=== PATIENT | male | born 1980 | race Caucasian/White ===

== ENCOUNTER 2023-07-14 08:58 | Outpatient (AMB) | payer OTHER, MEDICAID, SELFPAY ==
--- NOTE | 2023-07-14 09:06 | MHC.PC.OV ---
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: No Accompanied by: Self / Same As Patient Allergies grass pollen Allergy (Mild, Verified 07/14/23 09:34) Itchy Eyes Medication List - Last Reconciled 07/14/23 by Bienvenido Marquez CNP amlodipine 5 mg PO DAILY atorvastatin 10 mg PO DAILY azathioprine 150 mg PO DAILY losartan-hydrochlorothiazide 50-12.5 mg 1 tab PO DAILY metformin ER 500 mg PO DAILY omeprazole 20 mg PO DAILY Tobacco use date assessed: 07/14/23 Dental Screening Dental Screen Date: 07/14/23 Did you have a dental visit in the last 12 months?: No Did you have a dental problem in the last 6 months where you did not have access to dental care?: No Was dental information given to patient?: Patient has dentist HPI HPI Comments History of Present Illness Details New patient Prior PCP:?[facility] Last office visit/CPE: August 2022 Last routine blood work: October 2022 Acute issue(s): Hypertension -He is on amlodipine 10 mg daily and losartan-HCTZ 50-12.5 mg daily Diabetes - He is on Metformin 500 mg daily HLD - He is on atorvastatin 10 mg daily 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 Dad: HTN, skin cancer. MGM: DM SocHx: Former smoker. 1-2 drinks per year. No drugs. He is followed by gastroentrology at [facility] and pulmonology at [facility] He has GI follow up next month He notes that his last diabetic eye exam was at [facility] at the [employer] in October 2021: normal. He notes that he will call and schedule his next eye exam He denies routine exercise or healthy dietary choice. He declines referral to general foreman/dietitian and weight management and notes that he has a busy work schedule He denies acute symptoms at this time [facility] Medical History (Updated 07/14/23 @ 10:44 by Bienvenido Marquez CNP) Hope esophagus Hx of Crohn's disease High cholesterol High blood pressure Sinusitis Asthma Surgical History (Updated 07/14/23 @ 10:04 by Kimberley Hernández MA) Hx of appendectomy H/O hernia repair Hx of tonsillectomy Family History (Updated 07/14/23 @ 10:21 by Kimberley Hernández MA) Mother High blood pressure High cholesterol Diabetes Skin cancer Father High blood pressure Skin cancer Maternal Grandmother Diabetes Social History Housing: Other (Trailer) Patient Tobacco Use Status: Former Tobacco user e-Cigarette/Vaping Use: Never Used service: No Current occupational status: employed Current occupation: [employer] R[employer] Cognitive needs: No Hearing needs: No Vision needs: Yes Questionnaire PHQ-9 Over the last 2 weeks, how often have you been bothered by any of the following problems? 1. Little interest or pleasure in doing things: not at all 2. Feeling down, depressed, or hopeless: not at all 3. Trouble falling or staying asleep, or sleeping too much: not at all 4. Feeling tired or having little energy: several days 5. Poor appetite or overeating: several days 6. Feeling bad about yourself - or that you are a failure or have let yourself or your family down: not at all 7. Trouble concentrating on things, such as reading the newspaper or watching television: not at all 8. Moving or speaking so slowly that other people could have noticed. Or the opposite - being so fidgety or restless that you have been moving around a lot more than usual: not at all 9. Thoughts that you would be better off or of hurting yourself in some way: not at all Total score: 2 Depression Screening Interpretation: Negative Depression Screening Done: Yes [id number] - PHQ-9 Billing: Yes Source: Developed by Drs. Jordi Dominguez, Amy Alatorre, Torres Godinez and colleagues, with an educational tuan from [employer]. Thrive Questionnaire Date Thrive assessed: 07/14/23 I am a: Patient What is your living situation today?: I have a steady place to live Within the past 12 months, did the food you bought not last and you didn't have the money to get more?: Never true Within the past 12 months, did you worry whether your food would run out before you got money to buy more?: Never true Do you have trouble paying for medicines?: No Do you have trouble getting transportation to medical appointments?: No Do you have trouble paying your heating and electricity bill?: No Do you have trouble taking care of your child, family member or friend?: No Do you have trouble with day-to-day activities such as bathing, preparing meals, shopping, managing finances, etc.?: No Are you currently unemployed and looking for a job?: No Are you interested in more education?: Yes Please select the resources that you would like help with: Job search/training Currently or been in a relationship where the following occur: no concerns reported AUDIT C Alcohol Use Questionnaire (AUDIT-C) 1. How often do you have a drink containing alcohol?: Monthly or less 2. How many drinks containing alcohol do you have on a typical day when you are drinking?: 1 or 2 3. How often do you have six or more drinks on one occasion?: Never Total Score: 1 RODO-7 AMB Questionnaire RODO-7 Date RODO - 7 assessed: 07/14/23 Feeling nervous, anxious, or on edge: 0 = Not at all Not being able to stop or control worryin = Not at all Worrying too much about different things: 0 = Not at all Trouble relaxin = Several days Being so restless that it is hard to sit still: 0 = Not at all Becoming easily annoyed or irritable: 1 = Several days Feeling afraid as if something awful might happen: 0 = Not at all Total RODO-7 score (0-4 normal; 5-9 mild; 10-14 moderate; 15-21 severe): 2 Source: Developed by Drs. Jordi Dominguez, Amy Alatorre, Torres Godinez and colleagues, with an educational tuan from [employer]. RODO-7 Assessment Billing RODO-7 Assessment Tool: RODO-7 Assessment 93758 ACT Questionnaire In the past 4 weeks, how much of the time did your asthma keep you from getting as much done at work, school or at home?: None of the time During the past 4 weeks, how often have you had shortness of breath?: Not at all During the past 4 weeks, how often did your asthma symptoms wake you up at night or earlier than usual in the morning?: Not at all During the past 4 weeks, how often have you had to use your rescue inhaler or nebulizer medication?: Not at all How would you rate your asthma control during the past 4 weeks?: Completely controlled ACT Interpretation: Negative Score: 25 Review of Systems Const Details: Const Denies chills, Denies fatigue, Denies fever(s), Denies headache(s) and Denies weakness ENT Denies dizziness and Denies headache(s) Card Denies chest pain, Denies lightheadedness, Denies dyspnea and Denies other (Palpitations) Resp Denies cough, Denies dyspnea, Denies wheezing and Denies other ( shortness of breath) GI Denies abdominal pain, Denies melena, Denies hematochezia, Denies change in bowel habits, Denies dyspepsia and Denies nausea Denies hematuria and Denies dysuria Musc Denies abnormal gait, Denies myalgias, Denies arthralgias, Denies numbness and Denies tingling Skin/Breast Denies rash, Denies unusual bruising and Denies wounds Neuro Denies abnormal gait, Denies dizziness, Denies headache(s), Denies memory loss, Denies numbness, Denies Sensory deficit (Neuro), Denies tingling and Denies weakness Psych Denies anxiety, Denies depression, Denies memory loss Endo Denies cold intolerance, Denies fatigue, Denies heat intolerance, Denies polydipsia and Denies polyuria Aller/Immun Denies wheezing Physical exam (Primary Care) Vital Signs: Last Vital Signs Temp 97.7 F 07/14/23 09:07 Pulse 70 07/14/23 09:07 Resp 13 07/14/23 09:07 BP 138/88 07/14/23 09:07 Pulse Ox 98 07/14/23 09:07 Oxygen Delivery Method Room Air 07/14/23 09:07 BMI result Body Mass Index 51.2 Tobacco/Smoking Status: Tobacco use Status Tobacco use date assessed 07/14/23 07/14/23 09:34 Patient Tobacco Use Status Former Tobacco user 07/14/23 09:34 e-Cigarette/Vaping Use Never Used 07/14/23 09:34 Depression Screening Interpretation: Negative Currently or been in a relationship where the following occur: no concerns reported Const Other: General: no acute distress and well developed Nutritional Appearance: well nourished Orientation/consciousness: patient oriented x3 HENMT Head: Yes normocephalic and Yes atraumatic Eyes General: appearance normal, both eyes and all related structures Pupils: Equal, round and reactive pupils present EOM: EOMs intact bilaterally Resp Effort & Inspection: normal respiratory effort Auscultation: clear to auscultation bilaterally Cardio Rate: regular rate Rhythm: regular rhythm Heart sounds: S1 normal heart sound present, S2 normal heart sound present, no gallops, no murmurs and no rubs GI Palpation (GI): No Abdominal aortic bruit present, Soft to palpation, nontender, No hepatosplenomegaly present and No Rebound tenderness present Auscultation: normal bowel sounds General: Yes no CVA tenderness Back/Spine/Pelvis Back: no CVA tenderness Cervical Spine: cervical ROM normal and No Cervical spine tenderness Thoracic/Lumbar Spine: thoraco-lumbar ROM normal, No pain with thoraco-lumbar ROM, No thoracic spinal tenderness and No lumbar spinal tenderness Extrem General: Yes normal to inspection, No edema and No calf tenderness Skin General: warm and dry. Normal skin color. Normal skin turgor Lesions: no lesions Rashes: no rashes Trauma: no lacerations or abrasions Wounds: no wounds Nails: normal Neuro General: patient oriented x3, gait normal and no focal neuro deficit Cranial nerves: Yes Equal, round and reactive pupils present Cognition (Neuro): normal cognition Gait exam (Neuro): Normal gait present Sensory Exam: No Sensory deficit (Neuro) Psych Appearance: grossly normal Affect: normal affect Attitude: cooperative Thought process: Normal thought process present Results AMB Hemoglobin A1c AMB Hemoglobin A1c 6.2 % Last Edit by Kimberley Hernández MA on 07/14/23 10:22 Assessment and Plan Assessment & Plan (1) Diabetes: Code(s): E11.9 - Type 2 diabetes mellitus without complications Plan: A1c today is 6.2%, within goal of less than 7.0% Continue to take metformin as prescribed ADA diet and routine exercise encouraged Encouraged to schedule appointment with Ophthalmology for diabetic retinal exam Will check urine microalbumin/creatinine ratio Will recheck A1c in 3 months Advised to follow-up in 1-2 months for an extended exam and labs review Return sooner with symptoms or concerns Verbalized understanding and agreed with treatment plan (2) High blood pressure: Code(s): I10 - Essential (primary) hypertension Qualifiers: Hypertension type: primary hypertension Qualified Code(s): I10 - Essential (primary) hypertension Plan: Blood pressure is 138/88, above goal of less than 130/80 Continue current treatment regimen Low-sodium diet encouraged Will continue to monitor He will follow-up in 1-2 months Verbalized understanding and agreed with treatment plan (3) High cholesterol: Code(s): E78.00 - Pure hypercholesterolemia, unspecified Plan: Atorvastatin as prescribed Advised to limit foods high in saturated fat and avoid foods high trans fat Routine exercise encouraged Will check lipid panel level and make changes to his care plan as needed Verbalized understanding and agreed with the treatment plan (4) Morbid obesity with BMI of 50.0-59.9, adult: Code(s): E66.01 - Morbid (severe) obesity due to excess calories; Z68.43 - Body mass index [BMI] 50.0-59.9, adult Plan: He weighs 377 lb, BMI is 51.2 He does not exercise or make healthy dietary choices Declines referral to general foreman/dietitian or weight management Routine exercise and healthy diet encouraged Advised to inform his PCP if he changes his mind on referral to general foreman/dietitian or weight management Return with symptoms or concerns Verbalized understanding and agreed with treatment plan (5) 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 Plan: No acute symptoms He is on omeprazole and is followed by [facility] Gastroenterology Continue current treatment regimen Continue to follow up with Gastroenterology as planned Return with symptoms or concerns Verbalized understanding and agreed with treatment plan (6) Hx of Crohn's disease: Code(s): Z87.19 - Personal history of other diseases of the digestive system Plan: No acute symptoms On azathioprine and followed by [facility] gastroenterology Continue current treatment regimen Continue follow-up with Gastroenterology as planned Return with symptoms or concerns Verbalized understanding and agreed with treatment plan (7) Sleep apnea: Code(s): G47.30 - Sleep apnea, unspecified Plan: No acute symptoms On CPAP and followed by [facility] pulmonology Continue current treatment regimen Follow-up with pulmonology as planned Return with symptoms or concerns Verbalized understanding and agreed with treatment plan (8) Laboratory tests ordered as part of a complete physical exam (CPE): Code(s): Z00.00 - Encounter for general adult medical examination without abnormal findings Plan: Fasting labs ordered as part of a complete physical exam. Advised to fast for at least 10 hours before getting labs drawn. May drink water Verbalized understanding and agreed with treatment plan. Orders: Orders Complete Blood Count Auto Diff Today E11.9 - Type 2 diabetes mellitus without complications, E78.00 - Pure hypercholesterolemia, unspecified, I10 - Essential (primary) hypertension, Z00.00 - Encounter for general adult medical examination without abnormal findings Comprehensive [place]. Panel Fast Today E11.9 - Type 2 diabetes mellitus without complications, E78.00 - Pure hypercholesterolemia, unspecified, I10 - Essential (primary) hypertension, Z00.00 - Encounter for general adult medical examination without abnormal findings Microalbumin, Random (w Creat) Today E11.9 - Type 2 diabetes mellitus without complications Lipid Panel Today E78.00 - Pure hypercholesterolemia, unspecified, Z00.00 - Encounter for general adult medical examination without abnormal findings TSH reflex Free T4 Today Z00.00 - Encounter for general adult medical examination without abnormal findings AMB Hemoglobin A1c Today Z13.9 - Encounter for screening, unspecified Coding Level of Care Code New Pt Level 4 (95177) Diagnoses Diabetes E11.9 Primary hypertension I10 Hypertension type: primary hypertension High cholesterol E78.00 Morbid obesity with BMI of 50.0-59.9, adult E66.01; Z68.43 Hope esophagus K22.70 Hx of Crohn's disease Z87.19 Sleep apnea G47.30 Laboratory tests ordered as part of a complete physical exam (CPE) Z00.00 Additional Codes RODO-7 Assessment Billing - RODO-7 Assessment Tool: RODO-7 Assessment [id number] ([id number])
[2023-07-14 09:07] VITALS: BP 138/88; PULSE 70; RESP 13; TEMP 36.5; O2SAT 98; BMI 51.2
== END 2023-07-14 10:01 | disposition home or self-care (01) ==
PROVIDERS: PCP Nurse Practitioner Family; Visit Provider Nurse Practitioner Family
DX: E11.9 Type 2 diabetes mellitus without complications (principal); E66.01 Morbid (severe) obesity due to excess calories; Z68.43 Body mass index [BMI] 50.0-59.9, adult; I10 Essential (primary) hypertension; E78.00 Pure hypercholesterolemia, unspecified; K22.70 Barrett's esophagus without dysplasia; Z87.19 Personal history of other diseases of the digestive system; G47.30 Sleep apnea, unspecified
CPT/HCPCS: 83036; 99204

== ENCOUNTER 2023-08-10 10:35 | Outpatient (REF) | payer OTHER, MEDICAID, SELFPAY ==
[2023-08-10 14:58] LABS: MANUAL DIFF FLAG NO
[2023-08-10 15:03] LABS: Basophils Absolute Auto 0.1 X10*3/uL (0.0-0.2); Basophils Percent Auto 1.1 % (0-2); Eosinophils Absolute Auto 0.2 X10*3/uL (0.0-0.4); Eosinophils Percent Auto 3.7 % (0-4); Hematocrit 39.5 % (42.0-52.0); Hemoglobin 12.9 g/dl (14.0-18.0); Imm Gran Abs Auto 0.03 X10*3/uL (0.00-0.03); Imm Gran Pct Auto 0.5 % (0.0-0.4); Lymphocytes Absolute Auto 1.5 X10*3/uL (1.2-4.9); Lymphocytes Percent Auto 23.9 % (20-40); Mean Corpuscular HGB Conc 32.7 g/dl (31.0-36.0); Mean Corpuscular Hemoglobin 28.4 pg (27.0-33.0); Mean Platelet Volume 9.3 fL (9.4-12.4); Monocytes Absolute Auto 0.5 X10*3/uL (0.1-1.2); Monocytes Percent Auto 8.3 % (2-11); Neutrophils Percent Auto 62.5 % (45-73); Platelet Count 286 X10*3/uL (160-400); Red Blood Count 4.54 X10*6/uL (4.60-5.80); Red Cell Distribution Width 13.8 % (11.0-16.0); White Blood Count 6.4 X10*3/uL (4.8-10.8)
[2023-08-10 15:47] LABS: Alanine Aminotransferase 27 U/L (0-40); Alkaline Phosphatase 83 U/L (39-117); Anion Gap 14 (12-20); Aspartate Amino Transferase 16 U/L (5-37); Bilirubin Total 0.9 mg/dL (0.0-1.0); Blood Urea Nitrogen 10 mg/dL (9-16); Calcium 8.8 mg/dL (8.4-10.2); Carbon Dioxide 25 mmol/L (22-29); Chloride 108 mmol/L (96-108); Cholesterol 156 mg/dL (<200); Estimated Glomerular Filt Rate > 60; Glucose Fasting 91 mg/dL (60-99); HDL Cholesterol 36 mg/dL (>40); LDL Cholesterol Calculated 100 mg/dL (<100); Potassium 3.7 mmol/L (3.3-5.1); Sodium 143 mmol/L (135-145); Triglycerides 104 mg/dL (<150)
[2023-08-10 15:51] LABS: TSH reflex Free T4 2.06 uIU/mL (0.32-4.0)
== END 2023-08-10 10:36 | disposition home or self-care (01) ==
LOC: HO.WFDLDS 10:35
PROVIDERS: Visit Provider Nurse Practitioner Family
DX: Z00.00 Encounter for general adult medical examination without abnormal findings (principal); E11.9 Type 2 diabetes mellitus without complications; E78.00 Pure hypercholesterolemia, unspecified; I10 Essential (primary) hypertension
CPT/HCPCS: 36415; 80053; 80061; 84443; 85025

== ENCOUNTER 2023-08-10 14:29 | Outpatient (REF) | payer OTHER, MEDICAID, SELFPAY ==
[2023-08-10 16:00] LABS: Creatinine Urine 68.56 mg/dL; Microalbum/Creatinine Ratio Ur 8.7 ug/mg cr (<30)
== END 2023-08-10 14:30 | disposition home or self-care (01) ==
LOC: HO.LAB 14:29
PROVIDERS: PCP Nurse Practitioner Family; Visit Provider Nurse Practitioner Family
DX: E11.9 Type 2 diabetes mellitus without complications (principal)
CPT/HCPCS: 82043; 82570

== ENCOUNTER 2023-08-24 13:21 | Outpatient (AMB) | payer OTHER, MEDICAID, SELFPAY ==
--- NOTE | 2023-08-24 13:29 | MHC.PC.OV ---
Vital Signs 08/24/23 13:30 08/24/23 13:51 Height 6 ft Weight 385 lb BMI 52.2 BP 154/90 H 150/100 H Blood Pressure Location Rt brachial Rt brachial Position Sitting Sitting Respiration 13 Pulse 97 Pulse Source Pulse Oximeter Temp 97.8 F Temp Source Temporal Artery Scan Pulse Oximetry (%) 99 Oxygen Delivery Method Room Air Intake Visit Reasons: CPE Lab review Intake Note: Patient would like to discuss issues with knee if there is time. I advised that he may may need to book a follow up appt in order to get it looked at. Gas Brazer Required: No Accompanied by: Self / Same As Patient Allergies grass pollen Allergy (Mild, Verified 08/24/23 13:46) Itchy Eyes Medication List - Last Reconciled 08/24/23 by Bienvenido Marquez CNP amlodipine 5 mg PO DAILY atorvastatin 10 mg PO DAILY azathioprine 150 mg PO DAILY losartan-hydrochlorothiazide 50-12.5 mg 1 tab PO DAILY metformin ER 500 mg PO DAILY omeprazole 20 mg PO DAILY Tobacco use date assessed: 08/24/23 Dental Screening Dental Screen Date: 08/24/23 Did you have a dental visit in the last 12 months?: No Did you have a dental problem in the last 6 months where you did not have access to dental care?: No Was dental information given to patient?: Yes HPI HPI Comments History of Present Illness Details 43-year-old male presents for an extended physical exam He has history of hypertension, diabetes, hyperlipidemia, sleep apnea, Crohn's disease, and Trejo esophagus He admits to taking his medications as prescribed without adverse reactions He reports chronic intermittent left knee pain for the past 10 years. He attributes the pain to the physical nature of his job. 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 He states he was followed by ortho 10 years ago, had imaging done, left patella was displaced and was reduced Recent LDL level is slightly low, 36, RBC and H&H level is slight low, 4.54, and 12.9/39.5 respectively He is followed by [facility] gastroenterology and [facility] pulmonology [facility] Medical History Trejo esophagus Hx of Crohn's disease High cholesterol High blood pressure Sinusitis Asthma Surgical History Hx of appendectomy H/O hernia repair Hx of tonsillectomy Family History Mother High blood pressure High cholesterol Diabetes Skin cancer Father High blood pressure Skin cancer Maternal Grandmother Diabetes Social History Housing: Other (Trailer) Patient Tobacco Use Status: Former Tobacco user e-Cigarette/Vaping Use: Never Used service: No Current occupational status: employed 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 Jordi Dominguez, Amy Alatorre, Torres Godinez and colleagues, with an educational tuan from [employer]. Review of Systems Const Details: Denies chills, Denies fatigue, Denies fever(s), Denies headache(s) and Denies weakness HEENT Denies change in vision, Denies dizziness, Denies headache(s), Denies hearing loss, Denies nasal congestion, Denies sinus pain, Denies sinus pressure and Denies sore throat Card Denies chest pain, Denies lightheadedness, Denies dyspnea and Denies other (palpitations) Resp Denies cough, Denies dyspnea and Denies wheezing GI Denies abdominal pain, Denies melena, Denies hematochezia, Denies change in bowel habits, Denies dyspepsia and Denies nausea Denies hematuria and Denies dysuria Musc Denies abnormal gait, Denies myalgias, Denies arthralgias, Denies numbness and Denies tingling Skin/Breast Denies rash, Denies unusual bruising and Denies wounds Neuro Denies abnormal gait, Denies dizziness, Denies headache(s), Denies memory loss, Denies numbness, Denies Sensory deficit (Neuro), Denies tingling and Denies weakness Psych Denies anxiety, Denies depression and Denies memory loss Endo Denies cold intolerance, Denies fatigue, Denies heat intolerance, Denies polydipsia and Denies polyuria Jason/Lymph Denies easy bleeding and Denies easy bruising Aller/Immun Denies wheezing Physical exam (Primary Care) Vital Signs: Last Vital Signs Temp 97.8 F 08/24/23 13:30 Pulse 97 08/24/23 13:30 Resp 13 08/24/23 13:30 BP 154/90 H 08/24/23 13:30 Pulse Ox 99 08/24/23 13:30 Oxygen Delivery Method Room Air 08/24/23 13:30 BMI result Body Mass Index 52.2 Tobacco/Smoking Status: Tobacco use Status Tobacco use date assessed 08/24/23 08/24/23 13:37 Patient Tobacco Use Status Former Tobacco user 08/24/23 13:37 e-Cigarette/Vaping Use Never Used 08/24/23 13:37 Thrive Assessment: Date of Thrive Assessment Date Thrive assessed 07/14/23 08/24/23 13:37 Const Other: General: no acute distress, well developed, alert and awake Nutritional Appearance: well nourished Orientation/consciousness: patient oriented x3 HENMT Head: Yes normocephalic and Yes atraumatic Ears: hearing grossly normal bilaterally and TM's normal bilaterally General nose exam: Normal external nose present and Normal nares present Mouth: Normal oral and palatal mucosa present and moist mucous membranes Teeth and gingiva: dentition normal Throat: Yes oropharynx normal Eyes Pupils: Equal, round and reactive pupils present and Pupil accommodation reflex normal EOM: EOMs intact bilaterally Neck Neck: Yes normal visual inspection, Yes no lymphadenopathy and Yes trachea midline Thyroid: Thyroid normal Carotids: no bruits Lymphatic: no lymphadenopathy noted Chest Chest palpation & inspection: normal inspection of the chest Resp Effort & Inspection: normal respiratory effort Auscultation: clear to auscultation bilaterally Cardio Rate: regular rate Rhythm: regular rhythm Heart sounds: S1 normal heart sound present, S2 normal heart sound present, no gallops, no murmurs and no rubs Bruits: no abdominal aortic bruits and no carotid bruits GI Palpation (GI): No Abdominal aortic bruit present, Soft to palpation, nontender, No hepatosplenomegaly present and No Rebound tenderness present Auscultation: normal bowel sounds General: Yes no CVA tenderness Back/Spine/Pelvis Back: no CVA tenderness Cervical Spine: cervical ROM normal and No Cervical spine tenderness Thoracic/Lumbar Spine: thoraco-lumbar ROM normal, No pain with thoraco-lumbar ROM, No thoracic spinal tenderness and No lumbar spinal tenderness Skin General: warm and dry. Normal skin color. Normal skin turgor Lesions: no lesions Rashes: no rashes Trauma: no lacerations or abrasions Wounds: no wounds Nails: normal Neuro General: patient oriented x3, gait normal and CN's II-XI intact bilaterally Cranial nerves: Yes Equal, round and reactive pupils present Cognition (Neuro): normal cognition Gait exam (Neuro): Normal gait present Motor exam (neuro): 5/5 motor strength present throughout Sensory Exam: No Sensory deficit (Neuro) Deep tendon reflexes (DTR's): Right patellar reflex intensity grade: 2+ and Left patellar reflex intensity grade: 2+ Extrem General: Yes normal to inspection, No edema and No calf tenderness Psych Appearance: grossly normal Affect: normal affect Attitude: cooperative Thought process: Normal thought process present Assessment and Plan Assessment & Plan (1) Normal physical examination, routine: Code(s): Z00.00 - Encounter for general adult medical examination without abnormal findings Plan: No significant physical restrictions or limitations noted Continue current treatment regimen Healthy diet and routine exercise encouraged Follow-up in 1 month for hypertension or return sooner with symptoms or concerns Verbalized understanding and agreed with treatment plan (2) High blood pressure: Code(s): I10 - Essential (primary) hypertension Qualifiers: Hypertension type: primary hypertension Qualified Code(s): I10 - Essential (primary) hypertension Plan: His resting blood pressure is 150/100, above goal of less than 130/80 Will increase amlodipine to 10 mg daily. Take as prescribed Continue to take losartan-HCTZ as prescribed Low-sodium diet and routine exercise encouraged Blood pressure monitor ordered. Advised to monitor BP daily and report BP persistently above 130/80 Follow-up in 1 month Verbalized understanding and agreed with treatment plan (3) High cholesterol: Code(s): E78.00 - Pure hypercholesterolemia, unspecified Plan: Recent LDL is elevated, 100, goal is less than 70. HDL is slightly low, 36 Will increase atorvastatin to 20 mg daily. Take as prescribed Advised to limit foods high in saturated fat and avoid foods high in trans fat Will recheck lipid panel before his diabetes follow-up appointment Verbalized understanding and agreed with treatment plan (4) Mild anemia: Code(s): D64.9 - Anemia, unspecified Plan: Recent LDL level is slightly low, 36, RBC and H&H level is slight low, 4.54, and 12.9/39.5 respectively He notes that GI is aware of his mild anemia and attributes it to cause disease GI is currently monitoring CBC Continue follow-up with GI as planned Return with symptoms or concerns Verbalized understanding and agreed with the plan (5) Chronic pain of left knee: Code(s): M25.562 - Pain in left knee; G89.29 - Other chronic pain Plan: Chronic intermittent left knee pain for the past 10 years related to physical activities No acute symptoms No overt trauma or injury noted Naproxen ordered. Take as prescribed Warm/cold compresses encouraged Weight may also be a contributing factor. 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 and weight loss Healthy diet and routine exercise encouraged Follow-up with worsening or new symptoms Verbalized understanding and agreed with treatment plan Medications: New atorvastatin 20 mg PO BEDTIME 30 days 30 tabs 3RF amlodipine 10 mg PO DAILY 30 days 30 tabs 3RF naproxen 500 mg PO BID PRN 60 tabs 1RF pain miscellaneous medical supply 1 XL BP cuff and monitor 1 ea 0RF Changed From metformin ER 500 mg PO DAILY To metformin ER 500 mg PO DAILY 90 days 90 tabs 0RF From losartan-hydrochlorothiazide 50-12.5 mg 1 tab PO DAILY To losartan-hydrochlorothiazide 50-12.5 mg 1 tab PO DAILY 30 days 30 tabs 3RF Coding Level of Care Code Est Pt Level 3 (78753) Est Pt Prev Care 40-64y(55967) Diagnoses Normal physical examination, routine Z00.00 Primary hypertension I10 Hypertension type: primary hypertension High cholesterol E78.00 Mild anemia D64.9 Chronic pain of left knee M25.562; G89.29
[2023-08-24 13:30] VITALS: BP 154/90; PULSE 97; RESP 13; TEMP 36.6; O2SAT 99; BMI 52.2
[2023-08-24 13:51] VITALS: BP 150/100
== END 2023-08-24 15:37 | disposition home or self-care (01) ==
PROVIDERS: PCP Nurse Practitioner Family; Visit Provider Nurse Practitioner Family
DX: Z00.00 Encounter for general adult medical examination without abnormal findings (principal); I10 Essential (primary) hypertension; E78.00 Pure hypercholesterolemia, unspecified; D64.9 Anemia, unspecified; M25.562 Pain in left knee; G89.29 Other chronic pain
CPT/HCPCS: 99213; 99396

== ENCOUNTER 2023-09-21 16:27 | Outpatient (AMB) | payer OTHER, MEDICAID, SELFPAY ==
--- NOTE | 2023-09-21 16:42 | A.OFFPC_ITS ---
Vital Signs 09/21/23 16:43 09/21/23 17:26 Height 6 ft Weight 383 lb BMI 51.9 BP 144/100 H 140/100 H Blood Pressure Location Rt brachial Lt brachial Position Sitting Sitting Respiration 14 Pulse 91 Pulse Source Pulse Oximeter Temp 97.7 F Temp Source Temporal Artery Scan Pulse Oximetry (%) 96 Oxygen Delivery Method Room Air Intake Visit Reasons: follow up htn Inflated Pad Buffer Required: No Accompanied by: Self / Same As Patient Allergies grass pollen Allergy (Mild, Verified 09/21/23 17:23) Itchy Eyes Medication List - Last Reconciled 09/21/23 by Bienvenido Marquez CNP amlodipine 10 mg PO DAILY 30 days atorvastatin 20 mg PO BEDTIME 30 days azathioprine 150 mg PO DAILY losartan-hydrochlorothiazide 50-12.5 mg 1 tab PO DAILY 30 days metformin ER 500 mg PO DAILY 90 days miscellaneous medical supply 1 XL BP cuff and monitor naproxen 500 mg PO BID PRN omeprazole 20 mg PO DAILY Tobacco use date assessed: 08/24/23 Dental Screening Dental Screen Date: 09/21/23 Did you have a dental visit in the last 12 months?: Yes Did you have a dental problem in the last 6 months where you did not have access to dental care?: No Was dental information given to patient?: Patient has dentist HPI HPI Comments History of Present Illness Details 43 y/o male presents for HTN follow up He admits to taking his medications as prescribed without adverse reactions He offers no complaints and denies acute symptoms at this time He notes he has been maintaining healthy diet He has not been exercising and does not have the time to do so [facility] Medical History Trejo esophagus Hx of Crohn's disease High cholesterol High blood pressure Sinusitis Asthma Surgical History Hx of appendectomy H/O hernia repair Hx of tonsillectomy Family History Mother High blood pressure High cholesterol Diabetes Skin cancer Father High blood pressure Skin cancer Maternal Grandmother Diabetes Social History Housing: Other (Trailer) Patient Tobacco Use Status: Former Tobacco user e-Cigarette/Vaping Use: Never Used service: No Current occupational status: employed 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 Jordi Dominguez, Amy Alatorre, Torres Godinez and colleagues, with an educational tuan from [employer]. Review of Systems Const Details: Const Denies chills, Denies fatigue, Denies fever(s), Denies headache(s) and Denies weakness ENT Denies dizziness and Denies headache(s) Card Denies chest pain, Denies lightheadedness, Denies dyspnea and Denies other (Palpitations) Resp Denies cough, Denies dyspnea, Denies wheezing and Denies other ( shortness of breath) GI Denies abdominal pain, Denies melena, Denies hematochezia, Denies change in bowel habits, Denies dyspepsia and Denies nausea Denies hematuria and Denies dysuria Musc Denies abnormal gait, Denies myalgias, Denies arthralgias, Denies numbness and Denies tingling Skin/Breast Denies rash, Denies unusual bruising and Denies wounds Neuro Denies abnormal gait, Denies dizziness, Denies headache(s), Denies memory loss, Denies numbness, Denies Sensory deficit (Neuro), Denies tingling and Denies weakness Psych Denies anxiety, Denies depression, Denies memory loss Endo Denies cold intolerance, Denies fatigue, Denies heat intolerance, Denies polydipsia and Denies polyuria Aller/Immun Denies wheezing Physical exam (Primary Care) Vital Signs: Last Vital Signs Temp 97.7 F 09/21/23 16:43 Pulse 91 09/21/23 16:43 Resp 14 09/21/23 16:43 BP 144/100 H 09/21/23 16:43 Pulse Ox 96 09/21/23 16:43 Oxygen Delivery Method Room Air 09/21/23 16:43 BMI result Body Mass Index 51.9 Tobacco/Smoking Status: Tobacco use Status Tobacco use date assessed 08/24/23 09/21/23 16:50 Patient Tobacco Use Status Former Tobacco user 09/21/23 16:50 e-Cigarette/Vaping Use Never Used 09/21/23 16:50 Thrive Assessment: Date of Thrive Assessment Date Thrive assessed 07/14/23 09/21/23 16:50 Const Other: General: no acute distress and well developed Nutritional Appearance: well nourished Orientation/consciousness: patient oriented x3 [facility] Head: Yes normocephalic and Yes atraumatic Eyes General: appearance normal, both eyes and all related structures Pupils: Equal, round and reactive pupils present EOM: EOMs intact bilaterally Resp Effort & Inspection: normal respiratory effort Auscultation: clear to auscultation bilaterally Cardio Rate: regular rate Rhythm: regular rhythm Heart sounds: S1 normal heart sound present, S2 normal heart sound present, no gallops, no murmurs and no rubs GI Palpation (GI): No Abdominal aortic bruit present, Soft to palpation, nontender, No hepatosplenomegaly present and No Rebound tenderness present Auscultation: normal bowel sounds General: Yes no CVA tenderness Back/Spine/Pelvis Back: no CVA tenderness Cervical Spine: cervical ROM normal and No Cervical spine tenderness Thoracic/Lumbar Spine: thoraco-lumbar ROM normal, No pain with thoraco-lumbar ROM, No thoracic spinal tenderness and No lumbar spinal tenderness Extrem General: Yes normal to inspection, No edema and No calf tenderness Skin General: warm and dry. Normal skin color. Normal skin turgor Lesions: no lesions Rashes: no rashes Trauma: no lacerations or abrasions Wounds: no wounds Nails: normal Neuro General: patient oriented x3, gait normal and no focal neuro deficit Cranial nerves: Yes Equal, round and reactive pupils present Cognition (Neuro): normal cognition Gait exam (Neuro): Normal gait present Sensory Exam: No Sensory deficit (Neuro) Psych Appearance: grossly normal Affect: normal affect Attitude: cooperative Thought process: Normal thought process present Assessment and Plan Assessment & Plan (1) High blood pressure: Code(s): I10 - Essential (primary) hypertension Qualifiers: Hypertension type: primary hypertension Qualified Code(s): I10 - Essential (primary) hypertension Plan: Resting blood pressure is 140/100, above goal of less than 140/90 Will increase losartan-hydrochlorothiazide 100-12.5 mg daily. Take as prescribed Continue to take amlodipine as prescribed Low-sodium diet and routine exercise encouraged Follow-up in 2 weeks or return sooner with symptoms or concerns Verbalized understanding and agreed with treatment plan (2) Morbid obesity with BMI of 50.0-59.9, adult: Code(s): E66.01 - Morbid (severe) obesity due to excess calories; Z68.43 - Body mass index [BMI] 50.0-59.9, adult Plan: He currently weighs 383 lb, BMI is 51.9 He has not motivated to exercise Instructed on the health risks of obesity and benefits of a healthy weight, including controlled blood pressure Routine exercise and healthy diet encouraged Declines referral to virtualization consultant and weight management at this time Advised to inform his PCP if he changes his mind on virtualization consultant and weight management referral Understanding and agreed with treatment plan Orders: Orders Lipid Panel Today E11.9 - Type 2 diabetes mellitus without complications, E78.00 - Pure hypercholesterolemia, unspecified Medications: New losartan-hydrochlorothiazide 100-12.5 mg 1 tab PO DAILY 30 days 30 tabs 3RF Discontinued losartan-hydrochlorothiazide 50-12.5 mg Discontinued Reason: Doctor's Order 1 tab PO DAILY 30 days 30 tabs 3RF Coding Level of Care Code Est Pt Level 3 (21634) Diagnoses Primary hypertension I10 Hypertension type: primary hypertension Morbid obesity with BMI of 50.0-59.9, adult E66.01; Z68.43
[2023-09-21 16:43] VITALS: BP 144/100; PULSE 91; RESP 14; TEMP 36.5; O2SAT 96; BMI 51.9
[2023-09-21 17:26] VITALS: BP 140/100
== END 2023-09-21 17:54 | disposition home or self-care (01) ==
PROVIDERS: PCP Nurse Practitioner Family; Visit Provider Nurse Practitioner Family
DX: I10 Essential (primary) hypertension (principal); E66.01 Morbid (severe) obesity due to excess calories; Z68.43 Body mass index [BMI] 50.0-59.9, adult
CPT/HCPCS: 99213

== ENCOUNTER 2023-10-05 16:28 | Outpatient (AMB) | payer OTHER, MEDICAID, SELFPAY ==
[2023-10-05 16:31] VITALS: BP 144/88; PULSE 98; RESP 13; TEMP 36.4; O2SAT 98; BMI 52.0
--- NOTE | 2023-10-05 16:31 | MHC.PC.OV ---
Vital Signs 10/05/23 16:31 Height 6 ft Weight 383 lb 2 oz BMI 52.0 BP 144/88 H Blood Pressure Location Rt brachial Position Sitting Respiration 13 Pulse 98 Pulse Source Pulse Oximeter Temp 97.6 F Temp Source Temporal Artery Scan Pulse Oximetry (%) 98 Oxygen Delivery Method Room Air Intake Visit Reasons: f/u HTN Certified Indoor Environmentalist Required: No Accompanied by: Self / Same As Patient Allergies grass pollen Allergy (Mild, Verified 10/05/23 16:41) Itchy Eyes Medication List - Last Reconciled 10/05/23 by Bienvenido Marquez CNP amlodipine 10 mg PO DAILY 30 days atorvastatin 20 mg PO BEDTIME 30 days azathioprine 150 mg PO DAILY losartan-hydrochlorothiazide 100-12.5 mg 1 tab PO DAILY 30 days metformin ER 500 mg PO DAILY 90 days miscellaneous medical supply 1 XL BP cuff and monitor naproxen 500 mg PO BID PRN omeprazole 20 mg PO DAILY Tobacco use date assessed: 08/24/23 Dental Screening Dental Screen Date: 10/05/23 Did you have a dental visit in the last 12 months?: No Did you have a dental problem in the last 6 months where you did not have access to dental care?: No Was dental information given to patient?: Patient has dentist HPI HPI Comments History of Present Illness Details 43 y/o male presents for HTN follow up He admits to taking his medications as prescribed without adverse reactions He offers no complaints and denies acute symptoms at this time [facility] Medical History Trejo esophagus Hx of Crohn's disease High cholesterol High blood pressure Sinusitis Asthma Surgical History Hx of appendectomy H/O hernia repair Hx of tonsillectomy Family History Mother High blood pressure High cholesterol Diabetes Skin cancer Father High blood pressure Skin cancer Maternal Grandmother Diabetes Social History 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 Jordi Dominguez, Amy Alatorre, Torres Godinez and colleagues, with an educational tuan from [employer]. Review of Systems Const Details: Const Denies chills, Denies fatigue, Denies fever(s), Denies headache(s) and Denies weakness ENT Denies dizziness and Denies headache(s) Card Denies chest pain, Denies lightheadedness, Denies dyspnea and Denies other (Palpitations) Resp Denies cough, Denies dyspnea, Denies wheezing and Denies other ( shortness of breath) GI Denies abdominal pain, Denies melena, Denies hematochezia, Denies change in bowel habits, Denies dyspepsia and Denies nausea Denies hematuria and Denies dysuria Musc Denies abnormal gait, Denies myalgias, Denies arthralgias, Denies numbness and Denies tingling Skin/Breast Denies rash, Denies unusual bruising and Denies wounds Neuro Denies abnormal gait, Denies dizziness, Denies headache(s), Denies memory loss, Denies numbness, Denies Sensory deficit (Neuro), Denies tingling and Denies weakness Psych Denies anxiety, Denies depression, Denies memory loss Endo Denies cold intolerance, Denies fatigue, Denies heat intolerance, Denies polydipsia and Denies polyuria Aller/Immun Denies wheezing Physical exam (Primary Care) Vital Signs: Last Vital Signs Temp 97.6 F 10/05/23 16:31 Pulse 98 10/05/23 16:31 Resp 13 10/05/23 16:31 BP 144/88 H 10/05/23 16:31 Pulse Ox 98 10/05/23 16:31 Oxygen Delivery Method Room Air 10/05/23 16:31 BMI result Body Mass Index 52.0 Tobacco/Smoking Status: Tobacco use Status Tobacco use date assessed 08/24/23 10/05/23 16:38 Patient Tobacco Use Status Former Tobacco user 10/05/23 16:38 e-Cigarette/Vaping Use Never Used 10/05/23 16:38 Thrive Assessment: Date of Thrive Assessment Date Thrive assessed 07/14/23 10/05/23 16:38 Const Other: General: no acute distress and well developed Nutritional Appearance: well nourished Orientation/consciousness: patient oriented x3 [facility] Head: Yes normocephalic and Yes atraumatic Eyes General: appearance normal, both eyes and all related structures Pupils: Equal, round and reactive pupils present EOM: EOMs intact bilaterally Resp Effort & Inspection: normal respiratory effort Auscultation: clear to auscultation bilaterally Cardio Rate: regular rate Rhythm: regular rhythm Heart sounds: S1 normal heart sound present, S2 normal heart sound present, no gallops, no murmurs and no rubs GI Palpation (GI): No Abdominal aortic bruit present, Soft to palpation, nontender, No hepatosplenomegaly present and No Rebound tenderness present Auscultation: normal bowel sounds General: Yes no CVA tenderness Back/Spine/Pelvis Back: no CVA tenderness Cervical Spine: cervical ROM normal and No Cervical spine tenderness Thoracic/Lumbar Spine: thoraco-lumbar ROM normal, No pain with thoraco-lumbar ROM, No thoracic spinal tenderness and No lumbar spinal tenderness Extrem General: Yes normal to inspection, No edema and No calf tenderness Skin General: warm and dry. Normal skin color. Normal skin turgor Neuro General: patient oriented x3, gait normal and no focal neuro deficit Cranial nerves: Yes Equal, round and reactive pupils present Cognition (Neuro): normal cognition Gait exam (Neuro): Normal gait present Sensory Exam: No Sensory deficit (Neuro) Psych Appearance: grossly normal Affect: normal affect Attitude: cooperative Thought process: Normal thought process present Assessment and Plan Assessment & Plan (1) High blood pressure: Code(s): I10 - Essential (primary) hypertension Qualifiers: Hypertension type: primary hypertension Qualified Code(s): I10 - Essential (primary) hypertension Plan: Resting blood pressure is 144/88, above goal of less than 140/80. Heart rate is 98 Metoprolol 25 mg daily ordered. Take as prescribed Continue to take amlodipine, losartan-hydrochlorothiazide as prescribed Low-sodium diet and routine exercise encouraged Will check aldosterone/renin ratio for secondary cause of hypertension Encouraged to get blood work done before his next visit Follow-up in 2 weeks return sooner with symptoms or concerns Verbalized understanding and agreed with treatment plan Orders: Orders Aldost/Renin Today I10 - Essential (primary) hypertension Medications: New metoprolol tartrate 25 mg PO DAILY 30 days 30 tabs 3RF Coding Level of Care Code Est Pt Level 3 (53371) Diagnoses Primary hypertension I10 Hypertension type: primary hypertension
== END 2023-10-05 17:10 | disposition home or self-care (01) ==
PROVIDERS: PCP Nurse Practitioner Family; Visit Provider Nurse Practitioner Family
DX: I10 Essential (primary) hypertension (principal)
CPT/HCPCS: 99213

== ENCOUNTER 2023-11-06 08:46 | Outpatient (REF) | payer OTHER, MEDICAID, SELFPAY ==
[2023-11-06 10:15] LABS: Cholesterol 109 mg/dL (<200); HDL Cholesterol 32 mg/dL (>40); LDL Cholesterol Calculated 65 mg/dL (<100); Triglycerides 64 mg/dL (<150)
[2023-11-16 05:29] LABS: Aldosterone/Renin Ratio 19.6 Ratio (0.9-28.9); Plasma Renin Activity 0.56 ng/mL/h (0.25-5.82)
== END 2023-11-06 08:47 | disposition home or self-care (01) ==
LOC: HO.LAB 08:46
PROVIDERS: PCP Nurse Practitioner Family; Visit Provider Nurse Practitioner Family
DX: E11.9 Type 2 diabetes mellitus without complications (principal); E78.00 Pure hypercholesterolemia, unspecified; I10 Essential (primary) hypertension
CPT/HCPCS: 36415; 80061; 82088

== ENCOUNTER 2024-01-10 16:26 | Outpatient (AMB) | payer OTHER, MEDICAID, SELFPAY ==
--- NOTE | 2024-01-10 16:35 | MHC.PC.OV ---
Vital Signs 01/10/24 16:36 01/10/24 17:15 Height 6 ft Weight 388 lb 4 oz BMI 52.7 BP 136/84 130/90 H Blood Pressure Location Rt brachial Lt brachial Position Sitting Sitting Respiration 15 Pulse 102 H 92 Pulse Source Pulse Oximeter Auscultation Temp 97.9 F Temp Source Temporal Artery Scan Intake Visit Reasons: BP CHECK Intake Note: Patient need refill on metformin. Unix Manager Required: No Accompanied by: Self / Same As Patient Allergies grass pollen Allergy (Mild, Verified 01/10/24 17:10) Itchy Eyes Medication List - Last Reconciled 01/10/24 by Bienvenido Marquez CNP amlodipine 10 mg PO DAILY 30 days atorvastatin 20 mg PO BEDTIME 30 days azathioprine 150 mg PO DAILY losartan-hydrochlorothiazide 100-12.5 mg 1 tab PO DAILY 30 days metformin ER 500 mg PO DAILY 90 days metoprolol tartrate 25 mg PO DAILY 30 days miscellaneous medical supply 1 XL BP cuff and monitor naproxen 500 mg PO BID PRN omeprazole 20 mg PO DAILY Tobacco use date assessed: 08/24/23 Dental Screening Dental Screen Date: 10/05/23 HPI HPI Comments History of Present Illness Details 43 y/o male presents for HTN and diabetes follow up He admits to taking his medications as prescribed without adverse reactions He offers no complaints and denies acute symptoms at this time Recent aldosterone/renin ratio in October 2022 is normal, 19.6 PFSH Medical History Trejo esophagus Hx of Crohn's disease High cholesterol High blood pressure Sinusitis Asthma Surgical History Hx of appendectomy H/O hernia repair Hx of tonsillectomy Family History Mother High blood pressure High cholesterol Diabetes Skin cancer Father High blood pressure Skin cancer Maternal Grandmother Diabetes Social History Housing: Other (Trailer) Patient Tobacco Use Status: Former Tobacco user e-Cigarette/Vaping Use: Never Used service: No Current occupational status: employed 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 Jordi Dominguez, Amy Alatorre, Torres Godinez and colleagues, with an educational tuan from [employer]. Review of Systems Const Details: Const Denies chills, Denies fatigue, Denies fever(s), Denies headache(s) and Denies weakness ENT Denies dizziness and Denies headache(s) Card Denies chest pain, Denies lightheadedness, Denies dyspnea and Denies other (Palpitations) Resp Denies cough, Denies dyspnea, Denies wheezing and Denies other ( shortness of breath) GI Denies abdominal pain, Denies melena, Denies hematochezia, Denies change in bowel habits, Denies dyspepsia and Denies nausea Denies hematuria and Denies dysuria Musc Denies abnormal gait, Denies myalgias, Denies arthralgias, Denies numbness and Denies tingling Skin/Breast Denies rash, Denies unusual bruising and Denies wounds Neuro Denies abnormal gait, Denies dizziness, Denies headache(s), Denies memory loss, Denies numbness, Denies Sensory deficit (Neuro), Denies tingling and Denies weakness Psych Denies anxiety, Denies depression, Denies memory loss Endo Denies cold intolerance, Denies fatigue, Denies heat intolerance, Denies polydipsia and Denies polyuria Aller/Immun Denies wheezing Physical exam (Primary Care) Vital Signs: Last Vital Signs Temp 97.9 F 01/10/24 16:36 Pulse 92 01/10/24 17:15 Resp 15 01/10/24 16:36 BP 130/90 H 01/10/24 17:15 BMI result Body Mass Index 52.7 Tobacco/Smoking Status: Tobacco use Status Tobacco use date assessed 08/24/23 01/10/24 16:35 Patient Tobacco Use Status Former Tobacco user 01/10/24 16:35 e-Cigarette/Vaping Use Never Used 01/10/24 16:35 Thrive Assessment: Date of Thrive Assessment Date Thrive assessed 07/14/23 01/10/24 16:35 Const Other: General: no acute distress and well developed Nutritional Appearance: well nourished Orientation/consciousness: patient oriented x3 [facility] Head: Yes normocephalic and Yes atraumatic Eyes General: appearance normal, both eyes and all related structures Pupils: Equal, round and reactive pupils present EOM: EOMs intact bilaterally Resp Effort & Inspection: normal respiratory effort Auscultation: clear to auscultation bilaterally Cardio Rate: regular rate Rhythm: regular rhythm Heart sounds: S1 normal heart sound present, S2 normal heart sound present, no gallops, no murmurs and no rubs GI Palpation (GI): No Abdominal aortic bruit present, Soft to palpation, nontender, No hepatosplenomegaly present and No Rebound tenderness present Auscultation: normal bowel sounds General: Yes no CVA tenderness Back/Spine/Pelvis Back: no CVA tenderness Cervical Spine: cervical ROM normal and No Cervical spine tenderness Thoracic/Lumbar Spine: thoraco-lumbar ROM normal, No pain with thoraco-lumbar ROM, No thoracic spinal tenderness and No lumbar spinal tenderness Extrem General: Yes normal to inspection, No edema and No calf tenderness Skin General: warm and dry. Normal skin color. Normal skin turgor Neuro General: patient oriented x3, gait normal and no focal neuro deficit Cranial nerves: Yes Equal, round and reactive pupils present Cognition (Neuro): normal cognition Gait exam (Neuro): Normal gait present Sensory Exam: No Sensory deficit (Neuro) Psych Appearance: grossly normal Affect: normal affect Attitude: cooperative Thought process: Normal thought process present Results AMB Hemoglobin A1c AMB Hemoglobin A1c 6.3 % Last Edit by Enid Escobedo CMA on 01/10/24 17:45 Results Reviewed Results Reviewed: Laboratory Last Values Hgb A1c (Clinic) 6.3 % (4.0-6.0) H 01/10/24 17:40 Assessment and Plan Assessment & Plan (1) High blood pressure: Code(s): I10 - Essential (primary) hypertension Qualifiers: Hypertension type: primary hypertension Qualified Code(s): I10 - Essential (primary) hypertension Plan: Resting blood pressure is 130/90, slightly above goal of less than 130/80. Resting heart rate is 92 Recent aldosterone/renin ratio in October 2022 is normal, 19.6 Will increase metoprolol to 50 mg daily. Advised to take as prescribed Continue to take losartan-HCTZ 10-12.5 daily and amlodipine 10 mg daily Low-sodium diet and routine exercise encouraged Follow-up in 3 months or return sooner with symptoms or concerns Verbalized understanding and agreed with treatment plan (2) Diabetes: Code(s): E11.9 - Type 2 diabetes mellitus without complications Plan: A1c today is 6.3%, within goal of less than 7.0%. Previous A1c was 6.2% Recent LDL level is 65, within goal of less than 100 Recent microalbumin/creatinine ratio is normal, 8.7 Continue to take metformin ER 500 mg daily ADA diet and routine exercise encouraged Follow-up in 3 months Orders: Orders AMB Hemoglobin A1c 01/10/24 E11.9 - Type 2 diabetes mellitus without complications Medications: New metoprolol tartrate 50 mg PO DAILY 30 days 30 tabs 3RF Refilled metformin ER 500 mg PO DAILY 90 days 90 tabs 1RF Discontinued metoprolol tartrate Discontinued Reason: Doctor's Order 25 mg PO DAILY 30 days 30 tabs 3RF Coding Level of Care Code Est Pt Level 4 (84698) Complex EM visit Add On G2211 Diagnoses Primary hypertension I10 Hypertension type: primary hypertension Diabetes E11.9
[2024-01-10 16:36] VITALS: BP 136/84; PULSE 102; RESP 15; TEMP 36.6; BMI 52.7
[2024-01-10 17:15] VITALS: BP 130/90; PULSE 92
== END 2024-01-10 18:18 | disposition home or self-care (01) ==
PROVIDERS: PCP Nurse Practitioner Family; Visit Provider Nurse Practitioner Family
DX: E11.9 Type 2 diabetes mellitus without complications (principal)
CPT/HCPCS: 83036; 99214; G2211

== ENCOUNTER 2024-04-17 15:38 | Outpatient (AMB) | payer OTHER, MEDICAID, SELFPAY ==
--- NOTE | 2024-04-17 15:42 | A.OFFPC_ITS ---
Vital Signs 04/17/24 15:49 Height 6 ft Weight 395 lb BMI 53.6 BP 160/100 H Blood Pressure Location Rt brachial Position Sitting Respiration 16 Pulse 88 Pulse Source Auscultation Temp 98.1 F Temp Source Oral Pulse Oximetry (%) 96 Oxygen Delivery Method Room Air Intake Visit Reasons: Diabetes follow-up Intake Note: patient here to follow up on diabetes. Fuel Quality Tech Required: No Allergies grass pollen Allergy (Mild, Verified 04/17/24 16:13) Itchy Eyes Medication List - Last Reconciled 04/17/24 by Bienvenido Marquez CNP amlodipine 10 mg PO DAILY 30 days atorvastatin 20 mg PO BEDTIME 30 days azathioprine 150 mg PO DAILY losartan-hydrochlorothiazide 100-12.5 mg 1 tab PO DAILY 30 days metformin ER 500 mg PO DAILY 90 days metoprolol tartrate 50 mg PO DAILY 30 days miscellaneous medical supply 1 XL BP cuff and monitor naproxen 500 mg PO BID PRN omeprazole 20 mg PO DAILY Tobacco use date assessed: 04/17/24 Dental Screening Dental Screen Date: 04/17/24 Did you have a dental visit in the last 12 months?: No Did you have a dental problem in the last 6 months where you did not have access to dental care?: No Was dental information given to patient?: Patient declined HPI HPI Comments History of Present Illness Details 43 y/o male presents for HTN and diabete s follow up He admits to taking his medications as prescribed without adverse reactions He offers no complaints and denies acute symptoms at this time He notes that he was seen by his GI doctor at [facility] in late February for abdominal pain. An abdominal CT was ordered. 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 [facility] Medical History Trejo esophagus Hx of Crohn's disease High cholesterol High blood pressure Sinusitis Asthma Surgical History Hx of appendectomy H/O hernia repair Hx of tonsillectomy Family History Mother High blood pressure High cholesterol Diabetes Skin cancer Father High blood pressure Skin cancer Maternal Grandmother Diabetes Social History Housing: Other (Trailer) Patient Tobacco Use Status: Former Tobacco user e-Cigarette/Vaping Use: Never Used service: No Current occupational status: employed 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 Jordi Dominguez, Amy Alatorre, Torres Godinez and colleagues, with an educational tuan from [employer]. Review of Systems Const Details: Const Denies chills, Denies fatigue, Denies fever(s), Denies headache(s) and Denies weakness ENT Denies dizziness and Denies headache(s) Card Denies chest pain, Denies lightheadedness, Denies dyspnea and Denies other (Palpitations) Resp Denies cough, Denies dyspnea, Denies wheezing and Denies other ( shortness of breath) GI Denies abdominal pain, Denies melena, Denies hematochezia, Denies change in bowel habits, Denies dyspepsia and Denies nausea Denies hematuria and Denies dysuria Musc Denies abnormal gait, Denies myalgias, Denies arthralgias, Denies numbness and Denies tingling Skin/Breast Denies rash, Denies unusual bruising and Denies wounds Neuro Denies abnormal gait, Denies dizziness, Denies headache(s), Denies memory loss, Denies numbness, Denies Sensory deficit (Neuro), Denies tingling and Denies weakness Psych Denies anxiety, Denies depression, Denies memory loss Endo Denies cold intolerance, Denies fatigue, Denies heat intolerance, Denies polydipsia and Denies polyuria Aller/Immun Denies wheezing Physical exam (Primary Care) Vital Signs: Last Vital Signs Temp 98.1 F 04/17/24 15:49 Pulse 93 04/17/24 15:49 Resp 16 04/17/24 15:49 BP 160/100 H 04/17/24 15:49 Pulse Ox 96 04/17/24 15:49 Oxygen Delivery Method Room Air 04/17/24 15:49 BMI result Body Mass Index 53.6 Tobacco/Smoking Status: Tobacco use Status Tobacco use date assessed 04/17/24 04/17/24 15:57 Patient Tobacco Use Status Former Tobacco user 04/17/24 15:44 e-Cigarette/Vaping Use Never Used 04/17/24 15:44 Thrive Assessment: Date of Thrive Assessment Date Thrive assessed 07/14/23 04/17/24 15:44 Const Other: General: no acute distress and well developed Nutritional Appearance: well nourished Orientation/consciousness: patient oriented x3 [facility] Head: Yes normocephalic and Yes atraumatic Eyes General: appearance normal, both eyes and all related structures Pupils: Equal, round and reactive pupils present EOM: EOMs intact bilaterally Resp Effort & Inspection: normal respiratory effort Auscultation: clear to auscultation bilaterally Cardio Rate: regular rate Rhythm: regular rhythm Heart sounds: S1 normal heart sound present, S2 normal heart sound present, no gallops, no murmurs and no rubs GI Palpation (GI): No Abdominal aortic bruit present, Soft to palpation, nontender, No hepatosplenomegaly present and No Rebound tenderness present Auscultation: normal bowel sounds General: Yes no CVA tenderness Back/Spine/Pelvis Back: no CVA tenderness Cervical Spine: cervical ROM normal and No Cervical spine tenderness Thoracic/Lumbar Spine: thoraco-lumbar ROM normal, No pain with thoraco-lumbar ROM, No thoracic spinal tenderness and No lumbar spinal tenderness Extrem General: Yes normal to inspection, No edema and No calf tenderness Skin General: warm and dry. Normal skin color. Normal skin turgor Neuro General: patient oriented x3, gait normal and no focal neuro deficit Cranial nerves: Yes Equal, round and reactive pupils present Cognition (Neuro): normal cognition Gait exam (Neuro): Normal gait present Sensory Exam: No Sensory deficit (Neuro) Psych Appearance: grossly normal Affect: normal affect Attitude: cooperative Thought process: Normal thought process present Results AMB Hemoglobin A1c AMB Hemoglobin A1c 6.6 % Last Edit by Deneen Zavala on 04/17/24 16:20 Results Reviewed Results Reviewed: Laboratory Last Values Hgb A1c (Clinic) 6.6 % (4.0-6.0) H 04/17/24 16:11 Assessment and Plan Assessment & Plan (1) High blood pressure: Code(s): I10 - Essential (primary) hypertension Qualifiers: Hypertension type: primary hypertension Qualified Code(s): I10 - Essential (primary) hypertension Plan: Resting blood pressure is 160/100, above goal of less than 130/80 Will increase losartan-hydrochlorothiazide 200 -25 mg daily. Advised to take as prescribed Continue to take metoprolol 50 mg daily Low-sodium diet encouraged Follow-up in 2 weeks or sooner with symptoms or concerns Verbalized understanding and agreed with the treatment plan (2) Diabetes: Code(s): E11.9 - Type 2 diabetes mellitus without complications Plan: A1c today is 6.6%, within goal of less than 7.0%. 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 Instructed on the importance of strict blood pressure control Advised to continue current treatment regimen for hypertension Referred to nephrology Verbalized understanding and agreed with the plan Orders: Orders AMB Hemoglobin A1c Today Z13.9 - Encounter for screening, unspecified Referrals Nephrology Referral I10 - Essential (primary) hypertension, 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
[2024-04-17 15:49] VITALS: BP 160/100; PULSE 88; RESP 16; TEMP 36.7; O2SAT 96; BMI 53.6
== END 2024-04-17 16:34 | disposition home or self-care (01) ==
PROVIDERS: PCP Nurse Practitioner Family; Visit Provider Nurse Practitioner Family
DX: I10 Essential (primary) hypertension (principal); E11.9 Type 2 diabetes mellitus without complications; I72.2 Aneurysm of renal artery; Z13.9 Encounter for screening, unspecified
CPT/HCPCS: 83036; 99214

== ENCOUNTER 2024-05-02 16:03 | Outpatient (AMB) | payer OTHER, MEDICAID, SELFPAY ==
--- NOTE | 2024-05-02 16:04 | HO.NEPHOV_ITS ---
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 Required: No Accompanied by: Self / Same As Patient Allergies grass pollen Allergy (Mild, Verified 05/02/24 16:08) Itchy Eyes Medication List - Last Reconciled 05/02/24 by Sanford Logan MD amlodipine 10 mg PO DAILY 30 days atorvastatin 20 mg PO BEDTIME 30 days azathioprine 150 mg PO DAILY losartan-hydrochlorothiazide 100-25 mg 1 tab PO DAILY 30 days metformin ER 500 mg PO DAILY 90 days metoprolol tartrate 50 mg PO DAILY 30 days miscellaneous medical supply 1 XL BP cuff and monitor naproxen 500 mg PO BID PRN omeprazole 20 mg PO DAILY HPI Comments Details: RODNEY IS A PLEASANT 43-YEAR-OLD MAN WITH A HISTORY OF CROHN'S DISEASE AND OBESITY. HE WAS STARTED ON ANTIHYPERTENSIVE MEDICATIONS ABOUT A YEAR AGO. CURRENTLY HE IS ON 3 ANTIHYPERTENSIVE MEDICATIONS. 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 THIS WAS ESSENTIALLY UNCHANGED FROM THE IMAGING DONE IN 2019. HE IS REFERRED FOR FURTHER EVALUATION OF HYPERTENSION. 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 Cognitive needs: No Hearing needs: No Vision needs: No Review of Systems Const Denies fever(s) and Denies weight loss Card Denies chest pain Resp Denies cough and Denies hemoptysis GI Denies abdominal pain, Denies diarrhea and Denies nausea Musc Denies back pain Neuro Denies focal weakness Physical Exam Vital Signs: Last Vital Signs Pulse 90 05/02/24 16:05 BP 150/98 H 05/02/24 16:05 Pulse Ox 97 05/02/24 16:05 Oxygen Delivery Method Room Air 05/02/24 16:05 BMI result Body Mass Index 53.0 Const Other: OBESE General: comfortable; No acute distress Orientation/consciousness: patient oriented x3 Eyes General: appearance normal, both eyes and all related structures Visual Chand: normal visual chand by confrontation Neck Neck: Yes supple and Yes no JVD Resp Effort & Inspection: normal respiratory effort and respiratory effort not decre ased Auscultation: rhonchi Cardio Palpation: no palpable S3 and no palpable S4 Heart sounds: no rubs GI Inspection: Yes normal to inspection Palpation (GI): Soft to palpation Percussion: Yes normal to percussion Auscultation: normal bowel sounds General: Yes no CVA tenderness Back/Spine/Pelvis Back: no CVA tenderness Skin General skin exam: no petechiae and no purpura Neuro General: patient oriented x3 and no focal motor deficits Extrem General: No clubbing and No edema Results Reviewed Nephrology Results: Hgb 12.9 g/dl (14.0-18.0) L 08/10/23 WBC 6.4 X10*3/uL (4.8-10.8) 08/10/23 Plt Count 286 X10*3/uL (160-400) 08/10/23 Sodium 143 mmol/L (135-145) 08/10/23 Potassium 3.7 mmol/L (3.3-5.1) 08/10/23 Chloride 108 mmol/L (96-108) 08/10/23 Carbon Dioxide 25 mmol/L (22-29) 08/10/23 BUN 10 mg/dL (9-16) 08/10/23 Creatinine 0.70 mg/dL (0.5-1.4) 08/10/23 Calcium 8.8 mg/dL (8.4-10.2) 08/10/23 Urine Creatinine 68.56 mg/dL 08/10/23 Assessment & Plan Assessment & Plan (1) Renal artery aneurysm: Code(s): I72.2 - Aneurysm of renal artery Category: Medical (2) Sleep apnea: Code(s): G47.30 - Sleep apnea, unspecified Category: Medical (3) Morbid obesity with BMI of 50.0-59.9, adult: Code(s): E66.01 - Morbid (severe) obesity due to excess calories; Z68.43 - Body mass index [BMI] 50.0-59.9, adult Category: Medical (4) High blood pressure: Code(s): I10 - Essential (primary) hypertension Category: Medical Qualifiers: Hypertension type: primary hypertension Qualified Code(s): I10 - Essential (primary) hypertension Plan . RODNEY HAS RESISTANT HYPERTENSION IN THE SETTING OF OBESITY OBSTRUCTIVE SLEEP APNEA AND RENAL ARTERY ANEURYSM. RENAL ARTERY ANEURYSM measures 9 mm based on recent CT scan done in 2023. This was reportedly unchanged compared to the CT scan in 2019. Continue to monitor aneurysm Referred to vascular surgeon if size increases. Add aspirin 80 mg once a day. Resistant hypertension with a combination of above. He needs weight loss. You should continue using CPAP. Obtain 24 hour ABP. Maximize antihypertensive medications. Orders: Orders AMB 24 HR B/P Monitor PLACEMENT Today I10 - Essential (primary) hypertension Medications: New aspirin 81 mg PO DAILY 90 tabs 2RF Discontinued naproxen Discontinued Reason: Doctor's Order 500 mg PO BID PRN 60 tabs 1RF pain Coding Level of Care Code New Pt Level 4 (07149) Diagnoses Renal artery aneurysm I72.2 Sleep apnea G47.30 Morbid obesity with BMI of 50.0-59.9, adult E66.01; Z68.43 Primary hypertension I10 Hypertension type: primary hypertension
[2024-05-02 16:05] VITALS: BP 150/98; PULSE 90; O2SAT 97; BMI 53.0
== END 2024-05-02 16:29 | disposition home or self-care (01) ==
PROVIDERS: PCP Nurse Practitioner Family; Referring Provider Nurse Practitioner Family; Visit Provider Internal Medicine Hypertension Specialist
DX: I72.2 Aneurysm of renal artery (principal); I10 Essential (primary) hypertension; E66.01 Morbid (severe) obesity due to excess calories; Z68.43 Body mass index [BMI] 50.0-59.9, adult; G47.30 Sleep apnea, unspecified
CPT/HCPCS: 99204

== ENCOUNTER → 2024-05-02 16:03 | Outpatient (BNVA) | payer OTHER, MEDICAID, SELFPAY | PROVIDERS: PCP Nurse Practitioner Family; Referring Provider Nurse Practitioner Family; Visit Provider Internal Medicine Hypertension Specialist ==

== ENCOUNTER 2024-05-08 16:09 | Outpatient (AMB) | payer OTHER, MEDICAID, SELFPAY ==
--- NOTE | 2024-05-08 16:11 | A.OFFPC_ITS ---
Vital Signs 05/08/24 16:13 Height 6 ft Weight 390 lb 6 oz BMI 52.9 BP 124/76 Blood Pressure Location Rt brachial Position Sitting Respiration 15 Pulse 108 H Pulse Source Pulse Oximeter Temp 98.1 F Temp Source Oral Pulse Oximetry (%) 97 Oxygen Delivery Method Room Air Intake Visit Reasons: follow up blood pressure Intake Note: follow up on hypertension Allergies grass pollen Allergy (Mild, Verified 05/08/24 16:16) Itchy Eyes Medication List - Last Reconciled 05/08/24 by Bienvenido Marquez CNP amlodipine 10 mg PO DAILY 30 days aspirin 81 mg PO DAILY atorvastatin 20 mg PO BEDTIME 30 days azathioprine 150 mg PO DAILY losartan-hydrochlorothiazide 100-25 mg 1 tab PO DAILY 30 days metformin ER 500 mg PO DAILY 90 days metoprolol tartrate 50 mg PO DAILY 30 days miscellaneous medical supply 1 XL BP cuff and monitor omeprazole 20 mg PO DAILY Tobacco use date assessed: 04/17/24 Dental Screening Dental Screen Date: 04/17/24 HPI HPI Comments History of Present Illness Details 43-year-old male presents for hypertensi on follow-up He admits to taking his medications as prescribed without adverse reactions He offers no complaints and denies acute symptoms at this time FORMERLY [facility] Medical History Trejo esophagus Hx of Crohn's disease High cholesterol High blood pressure Sinusitis Asthma Surgical History Hx of appendectomy H/O hernia repair Hx of tonsillectomy Family History Mother High blood pressure High cholesterol Diabetes Skin cancer Father High blood pressure Skin cancer Maternal Grandmother Diabetes Social History Housing: Other Patient Tobacco Use Status: Former Tobacco user e-Cigarette/Vaping Use: Never Used service: No Current occupational status: employed 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 Jordi Dominguez, Amy Alatorre, Torres Godinez and colleagues, with an educational tuan from [employer]. Review of Systems Const Details: Const Denies chills, Denies fatigue, Denies fever(s), Denies headache(s) and Denies weakness ENT Denies dizziness and Denies headache(s) Card Denies chest pain, Denies lightheadedness, Denies dyspnea and Denies other (Palpitations) Resp Denies cough, Denies dyspnea, Denies wheezing and Denies other ( shortness of breath) GI Denies abdominal pain, Denies melena, Denies hematochezia, Denies change in bowel habits, Denies dyspepsia and Denies nausea Denies hematuria and Denies dysuria Musc Denies abnormal gait, Denies myalgias, Denies arthralgias, Denies numbness and Denies tingling Skin/Breast Denies rash, Denies unusual bruising and Denies wounds Neuro Denies abnormal gait, Denies dizziness, Denies headache(s), Denies memory loss, Denies numbness, Denies Sensory deficit (Neuro), Denies tingling and Denies weakness Endo Denies cold intolerance, Denies fatigue, Denies heat intolerance, Denies polydipsia and Denies polyuria Aller/Immun Denies wheezing Physical exam (Primary Care) Tobacco/Smoking Status: Tobacco use Status Tobacco use date assessed 04/17/24 05/02/24 16:31 Patient Tobacco Use Status Former Tobacco user 05/02/24 16:31 e-Cigarette/Vaping Use Never Used 05/02/24 16:31 Thrive Assessment: Date of Thrive Assessment Date Thrive assessed 07/14/23 05/02/24 16:31 Const Other: General: no acute distress and well developed Nutritional Appearance: well nourished Orientation/consciousness: patient oriented x3 HENMT Head: Yes normocephalic and Yes atraumatic Eyes General: appearance normal, both eyes and all related structures Pupils: Equal, round and reactive pupils present EOM: EOMs intact bilaterally Resp Effort & Inspection: normal respiratory effort Auscultation: clear to auscultation bilaterally Cardio Rate: regular rate Rhythm: regular rhythm Heart sounds: S1 normal heart sound present, S2 normal heart sound present, no gallops, no murmurs and no rubs GI Palpation (GI): No Abdominal aortic bruit present, Soft to palpation, nontender, No hepatosplenomegaly present and No Rebound tenderness present Auscultation: normal bowel sounds General: Yes no CVA tenderness Back/Spine/Pelvis Back: no CVA tenderness Cervical Spine: cervical ROM normal and No Cervical spine tenderness Thoracic/Lumbar Spine: thoraco-lumbar ROM normal, No pain with thoraco-lumbar ROM, No thoracic spinal tenderness and No lumbar spinal tenderness Extrem General: Yes normal to inspection, No edema and No calf tenderness Skin General: warm and dry. Normal skin color. Normal skin turgor Lesions: no lesions Rashes: no rashes Trauma: no lacerations or abrasions Wounds: no wounds Nails: normal Neuro General: patient oriented x3, gait normal and no focal neuro deficit Cranial nerves: Yes Equal, round and reactive pupils present Cognition (Neuro): normal cognition Gait exam (Neuro): Normal gait present Sensory Exam: No Sensory deficit (Neuro) Psych Appearance: grossly normal Affect: normal affect Attitude: cooperative Thought process: Normal thought process present Assessment and Plan Assessment & Plan (1) High blood pressure: Code(s): I10 - Essential (primary) hypertension Qualifiers: Hypertension type: primary hypertension Qualified Code(s): I10 - Essential (primary) hypertension Plan: Resting blood pressure is 124/76, within goal of less than 130/80 Continue current treatment regimen Low-sodium diet encouraged Follow-up in 10 weeks for hypertension and diabetes or sooner with symptoms or concerns Verbalized understanding and agreed with the plan Coding Level of Care Code Est Pt Level 3 (52539) Diagnoses Primary hypertension I10 Hypertension type: primary hypertension
[2024-05-08 16:13] VITALS: BP 124/76; PULSE 108; RESP 15; TEMP 36.7; O2SAT 97; BMI 52.9
== END 2024-05-08 16:22 | disposition home or self-care (01) ==
PROVIDERS: PCP Nurse Practitioner Family; Visit Provider Nurse Practitioner Family
DX: I10 Essential (primary) hypertension (principal)

== ENCOUNTER → 2024-05-08 16:09 | Outpatient (BNVA) | payer OTHER, MEDICAID, SELFPAY | PROVIDERS: PCP Nurse Practitioner Family; Visit Provider Nurse Practitioner Family ==

== ENCOUNTER → 2024-06-05 15:45 | Outpatient (BNVA) | payer OTHER, MEDICAID, SELFPAY | PROVIDERS: PCP Nurse Practitioner Family; Visit Provider Internal Medicine Hypertension Specialist ==

== ENCOUNTER 2024-06-06 15:32 | Outpatient (AMB) | payer OTHER, MEDICAID, SELFPAY ==
--- NOTE | 2024-06-06 15:42 | HO.NEPHOV_ITS ---
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 Accompanied by: Spouse Allergies grass pollen Allergy (Mild, Verified 06/06/24 15:43) Itchy Eyes Medication List - Last Reconciled 06/06/24 by Sanford Logan MD amlodipine 10 mg PO DAILY 30 days aspirin 81 mg PO DAILY atorvastatin 20 mg PO BEDTIME 30 days azathioprine 150 mg PO DAILY losartan-hydrochlorothiazide 100-25 mg 1 tab PO DAILY 30 days metformin ER 500 mg PO DAILY 90 days metoprolol tartrate 50 mg PO DAILY 30 days miscellaneous medical supply 1 XL BP cuff and monitor omeprazole 20 mg PO DAILY HPI Comments Details: RODNEY IS A PLEASANT 43-YEAR-OLD MAN WITH A HISTORY OF CROHN'S DISEASE AND OBESITY. HE WAS STARTED ON ANTIHYPERTENSIVE MEDICATIONS ABOUT A YEAR AGO. CURRENTLY HE IS ON 3 ANTIHYPERTENSIVE MEDICATIONS. 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 THIS WAS ESSENTIALLY UNCHANGED FROM THE IMAGING DONE IN 2019. HE IS REFERRED FOR FURTHER EVALUATION OF HYPERTENSION. 06/06/24 Underwent 24 hour ABP M [facility] Medical History Trejo esophagus Hx of Crohn's disease High cholesterol High blood pressure Sinusitis Asthma Surgical History Hx of appendectomy H/O hernia repair Hx of tonsillectomy Family History Mother High blood pressure High cholesterol Diabetes Skin cancer Father High blood pressure Skin cancer Maternal Grandmother Diabetes Social History Housing: Other Patient Tobacco Use Status: Former Tobacco user e-Cigarette/Vaping Use: Never Used service: No Current occupational status: employed Current occupation: [employer] Cognitive needs: No Hearing needs: No Vision needs: No Office Procedures 24 B/P Monitor Interpretation Details: Daytime average 143/92 Nighttime average 121/76 24 hour average 137/88. Nocturnal dipping present Mild white coat effect present CPT: 61331 24 Hour Blood Pressure Monitor Reading Procedure code (CPT) selection complete Results Reviewed Nephrology Results: No Data to Display Assessment & Plan Assessment & Plan (1) High blood pressure: Code(s): I10 - Essential (primary) hypertension Category: Medical Qualifiers: Hypertension type: primary hypertension Qualified Code(s): I10 - Essential (primary) hypertension (2) Renal artery aneurysm: Code(s): I72.2 - Aneurysm of renal artery Category: Medical (3) Sleep apnea: Code(s): G47.30 - Sleep apnea, unspecified Category: Medical (4) Morbid obesity with BMI of 50.0-59.9, adult: Code(s): E66.01 - Morbid (severe) obesity due to excess calories; Z68.43 - Body mass index [BMI] 50.0-59.9, adult Category: Medical Plan . RODNEY HAS RESISTANT HYPERTENSION IN THE SETTING OF OBESITY OBSTRUCTIVE SLEEP APNEA AND RENAL ARTERY ANEURYSM. RENAL ARTERY ANEURYSM measures 9 mm based on recent CT scan done in 2023. This was reportedly unchanged compared to the CT scan in 2019. Continue to monitor aneurysm Referred to vascular surgeon if size increases. Add aspirin 80 mg once a day. Resistant hypertension with a combination of above. He needs weight loss. You should continue using CPAP. Based on a 24 hour ABP M , I will add spironolactone 12.5 mg daily. Check renal panel with potassium in 3 weeks. Maximize antihypertensive medications. Orders: Orders Electrolytes 3 Weeks I10 - Essential (primary) hypertension, I72.2 - Aneurysm of renal artery Creatinine 3 Weeks I10 - Essential (primary) hypertension, I72.2 - Aneurysm of renal artery Calcium 3 Weeks I10 - Essential (primary) hypertension, I72.2 - Aneurysm of renal artery AMB 24 HR B/P Monitor INTERPRETATION Today I10 - Essential (primary) hype rtension Blood Urea Nitrogen 3 Weeks I10 - Essential (primary) hypertension, I72.2 - Aneurysm of renal artery Medications: New spironolactone 12.5 mg (1/2 x 25 mg) PO DAILY 30 tabs 0RF Coding Level of Care Code Est Pt Level 4 (28078) Diagnoses Primary hypertension I10 Hypertension type: primary hypertension Renal artery aneurysm I72.2 Sleep apnea G47.30 Morbid obesity with BMI of 50.0-59.9, adult E66.01; Z68.43 CPT Codes - CPT: 47961 24 Hour Blood Pressure Monitor Reading ([id number])
== END 2024-06-06 15:49 | disposition home or self-care (01) ==
LOC: HO.HKA 15:33
PROVIDERS: PCP Nurse Practitioner Family; Visit Provider Internal Medicine Hypertension Specialist
DX: I10 Essential (primary) hypertension (principal); I72.2 Aneurysm of renal artery; E66.01 Morbid (severe) obesity due to excess calories; Z68.43 Body mass index [BMI] 50.0-59.9, adult; G47.30 Sleep apnea, unspecified
CPT/HCPCS: 93790; 99214

== ENCOUNTER → 2024-06-06 15:32 | Outpatient (BNVA) | payer OTHER, MEDICAID, SELFPAY | PROVIDERS: PCP Nurse Practitioner Family; Visit Provider Internal Medicine Hypertension Specialist | DX: I1A.0 Resistant hypertension (principal); I72.2 Aneurysm of renal artery; G47.33 Obstructive sleep apnea (adult) (pediatric); E66.01 Morbid (severe) obesity due to excess calories; Z68.43 Body mass index [BMI] 50.0-59.9, adult | CPT/HCPCS: 93786 ==

== ENCOUNTER 2024-06-21 08:58 | Outpatient (AMB) | payer OTHER, MEDICAID, SELFPAY ==
--- NOTE | 2024-06-21 09:01 | A.OFFVIS_ITS ---
Intake Visit Reasons: sinus infection Intake Note: patient here c/o sinus infection Allergies grass pollen Allergy (Mild, Verified 06/06/24 15:43) Itchy Eyes PFSH Medical History Trejo esophagus Hx of Crohn's disease High cholesterol High blood pressure Sinusitis Asthma Surgical History Hx of appendectomy H/O hernia repair Hx of tonsillectomy Family History Mother High blood pressure High cholesterol Diabetes Skin cancer Father High blood pressure Skin cancer Maternal Grandmother Diabetes Social History Housing: Other Patient Tobacco Use Status: Former Tobacco user e-Cigarette/Vaping Use: Never Used service: No Current occupational status: employed 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
--- NOTE | 2024-06-21 09:05 | MHC.PC.OV ---
Vital Signs 06/21/24 09:07 Height 6 ft Weight 393 lb 2 oz BMI 53.3 BP 140/100 H Blood Pressure Location Rt brachial Position Sitting Respiration 20 Pulse 71 Pulse Source Pulse Oximeter Temp 98.2 F Temp Source Temporal Artery Scan Pulse Oximetry (%) 97 Oxygen Delivery Method Room Air Intake Visit Reasons: sinus infection Intake Note: patient here c/o sinus infection Policy Adviser Required: No Allergies grass pollen Allergy (Mild, Verified 06/21/24 09:14) Itchy Eyes Medication List - Last Reconciled 06/21/24 by Bienvenido Marquez CNP amlodipine 10 mg PO DAILY 30 days aspirin 81 mg PO DAILY atorvastatin 20 mg PO BEDTIME 30 days azathioprine 150 mg PO DAILY losartan-hydrochlorothiazide 100-25 mg 1 tab PO DAILY 30 days metformin ER 500 mg PO DAILY 90 days metoprolol tartrate 50 mg PO DAILY 30 days miscellaneous medical supply 1 XL BP cuff and monitor omeprazole 20 mg PO DAILY spironolactone 12.5 mg (1/2 x 25 mg) PO DAILY Tobacco use date assessed: 06/21/24 Dental Screening Dental Screen Date: 06/21/24 Did you have a dental visit in the last 12 months?: No Did you have a dental problem in the last 6 months where you did not have access to dental care?: No Was dental information given to patient?: Patient declined HPI HPI Comments History of Present Illness Details 43-year-old male, accompanied by his , presents with complaints of productive cough with yellow/brown phlegm, sinus pressure, and post nasal drip for the past 7 days. He has been taking DaQuil with some relief. He denies chest pain, dyspnea, body aches or constitutional symptoms. He notes positive sick contact. He denies viral testing. He has not been vaccinated for the flu this season but intends to get the vaccine. COUNT INCLUDES THE [facility] Medical History Trejo esophagus Hx of Crohn's disease High cholesterol High blood pressure Sinusitis Asthma Surgical History Hx of appendectomy H/O hernia repair Hx of tonsillectomy Family History Mother High blood pressure High cholesterol Diabetes Skin cancer Father High blood pressure Skin cancer Maternal Grandmother Diabetes Social History Housing: Other Patient Tobacco Use Status: Former Tobacco user e-Cigarette/Vaping Use: Never Used Second Hand Smoke Exposure: No service: No Current occupational status: employed Current occupation: [employer] Cognitive needs: No Hearing needs: No Vision needs: No Questionnaire PHQ-9 Over the last 2 weeks, how often have you been bothered by any of the following problems? 1. Little interest or pleasure in doing things: not at all 2. Feeling down, depressed, or hopeless: not at all 3. Trouble falling or staying asleep, or sleeping too much: not at all 4. Feeling tired or having little energy: not at all 5. Poor appetite or overeating: not at all 6. Feeling bad about yourself - or that you are a failure or have let yourself or your family down: not at all 7. Trouble concentrating on things, such as reading the newspaper or watching television: not at all 8. Moving or speaking so slowly that other people could have noticed. Or the opposite - being so fidgety or restless that you have been moving around a lot more than usual: not at all 9. Thoughts that you would be better off or of hurting yourself in some way: not at all Total score: 0 Depression Screening Interpretation: Negative Depression Screening Done: Yes Source: Developed by Drs. Jordi Dominguez, Amy Alatorre, Torres Godinez and colleagues, with an educational tuan from [employer]. Thrive Questionnaire Date Thrive assessed: 07/14/23 I am a: Patient What is your living situation today?: I have a steady place to live Within the past 12 months, did the food you bought not last and you didn't have the money to get more?: Never true Within the past 12 months, did you worry whether your food would run out before you got money to buy more?: Never true Do you have trouble paying for medicines?: No Do you have trouble getting transportation to medical appointments?: No Do you have trouble paying your heating and electricity bill?: No Do you have trouble taking care of your child, family member or friend?: No Do you have trouble with day-to-day activities such as bathing, preparing meals, shopping, managing finances, etc.?: No Are you currently unemployed and looking for a job?: No Are you interested in more education?: No Please select the resources that you would like help with: None Currently or been in a relationship where the following occur: No concerns reported THRIVE Score: 0 AUDIT C Alcohol Use Questionnaire (AUDIT-C) 1. How often do you have a drink containing alcohol?: Monthly or less 2. How many drinks containing alcohol do you have on a typical day when you are drinking?: 1 or 2 3. How often do you have six or more drinks on one occasion?: Never Total Score: 1 RODO-7 AMB Questionnaire RODO-7 Date RODO - 7 assessed: 07/14/23 Feeling nervous, anxious, or on edge: 0 = Not at all Not being able to stop or control worryin = Not at all Worrying too much about different things: 0 = Not at all Trouble relaxin = Not at all Being so restless that it is hard to sit still: 0 = Not at all Becoming easily annoyed or irritable: 0 = Not at all Feeling afraid as if something awful might happen: 0 = Not at all Total RODO-7 score (0-4 normal; 5-9 mild; 10-14 moderate; 15-21 severe): 0 Source: Developed by Drs. Jordi Dominguez, Amy Alatorre, Torres Godinez and colleagues, with an educational tuan from [employer]. Review of Systems Const Details: Const Denies chills, Denies fatigue, Denies fever(s), Reports headache(s) and Denies weakness ENT Reports as per HPI Card Denies chest pain, Denies lightheadedness, Denies dyspnea and Denies other (Palpitations) Resp Reports cough, Denies dyspnea, Denies wheezing and Denies other ( shortness of breath) GI Denies abdominal pain, Denies melena, Denies hematochezia, Denies change in bowel habits, Denies dyspepsia and Denies nausea Denies hematuria and Denies dysuria Musc Denies abnormal gait, Denies myalgias, Denies arthralgias, Denies numbness and Denies tingling Skin/Breast Denies rash, Denies unusual bruising and Denies wounds Neuro Denies abnormal gait, Denies dizziness, Denies headache(s), Denies memory loss, Denies numbness, Denies Sensory deficit (Neuro), Denies tingling and Denies weakness Psych Denies anxiety, Denies depression, Denies memory loss Endo Denies cold intolerance, Denies fatigue, Denies heat intolerance, Denies polydipsia and Denies polyuria Aller/Immun Denies wheezing Physical exam (Primary Care) Tobacco/Smoking Status: Tobacco use Status Tobacco use date assessed 04/17/24 05/08/24 16:11 Patient Tobacco Use Status Former Tobacco user 05/08/24 16:11 e-Cigarette/Vaping Use Never Used 05/08/24 16:11 Depression Screening Interpretation: Negative Thrive Assessment: Date of Thrive Assessment Date Thrive assessed 07/14/23 05/08/24 16:11 Currently or been in a relationship where the following occur: No concerns reported Const Other: General: no acute distress and well developed Nutritional Appearance: well nourished Orientation/consciousness: patient oriented x3 HENMT Head is normocephalic Bilateral ear canal and TM are normal Nasal turbinates and oropharynx are pink and moist Frontal and maxillary sinus tenderness with palpation No auricular or cervical lymphadenopathy Eyes General: appearance normal, both eyes and all related structures Pupils: Equal, round and reactive pupils present EOM: EOMs intact bilaterally Resp Effort & Inspection: normal respiratory effort Auscultation: clear to auscultation bilaterally Cardio Rate: regular rate Rhythm: regular rhythm Heart sounds: S1 normal heart sound present, S2 normal heart sound present, no gallops, no murmurs and no rubs GI Palpation (GI): No Abdominal aortic bruit present, Soft to palpation, nontender, No hepatosplenomegaly present and No Rebound tenderness present Auscultation: normal bowel sounds General: Yes no CVA tenderness Back/Spine/Pelvis Back: no CVA tenderness Extrem General: Yes normal to inspection, No edema and No calf tenderness Skin General: warm and dry. Normal skin color. Normal skin turgor Neuro General: patient oriented x3, gait normal and no focal neuro deficit Cranial nerves: Yes Equal, round and reactive pupils present Cognition (Neuro): normal cognition Gait exam (Neuro): Normal gait present Sensory Exam: No Sensory deficit (Neuro) Psych Appearance: grossly normal Affect: normal affect Attitude: cooperative Thought process: Normal thought process present Coding Level of Care Code Est Pt Level 3 (42059) Diagnoses Viral upper respiratory illness J06.9 Sinusitis J32.9 Assessment & Plan Assessment & Plan (1) Viral upper respiratory illness: Code(s): J06.9 - Acute upper respiratory infection, unspecified Category: Medical Plan: Likely viral illness with superimposed bacterial infection/sinusitis Viral illness There is no antibiotic medication for viruses.? They must run their course.? Most average 5-7 days but 7-10 days is not uncommon and up to 14 days is still possible.? A cough is often the last symptom to resolve and this can last for weeks in some cases. Rest Hydrate well -? Drink plenty of fluids.? Especially water. Tylenol or ibuprofen for muscle aches, headache, fever/discomfort Cannot rule out COVID-19/RSV/Flu infection Nasal swab acquired and will be sent to the lab [facility] as prescribed Return for new or worsening symptoms Verbalized understanding and agreed with treatment plan. (2) Sinusitis: Code(s): J32.9 - Chronic sinusitis, unspecified Category: Medical Plan: Plan as above Orders: Orders SARS-CoV2/FLU/RSV Today J06.9 - Acute upper respiratory infection, unspecified, J32.9 - Chronic sinusitis, unspecified Medications: New azithromycin (Zithromax Z-Nawaf) For 250 mg dose pack: take 500 mg today (day 1), then 250 mg for 4 days (days 2-5) PO 6 tabs 0RF
[2024-06-21 09:07] VITALS: BP 140/100; PULSE 71; RESP 20; TEMP 36.8; O2SAT 97; BMI 53.3
== END 2024-06-21 09:27 | disposition home or self-care (01) ==
PROVIDERS: PCP Nurse Practitioner Family; Visit Provider Nurse Practitioner Family
DX: J06.9 Acute upper respiratory infection, unspecified (principal); J32.9 Chronic sinusitis, unspecified

== ENCOUNTER 2024-06-21 08:58 | Outpatient (REF) | payer OTHER, MEDICAID, SELFPAY ==
[2024-06-21 12:43] LABS: Influenza A PCR NEGATIVE (Negative); Influenza B PCR NEGATIVE (Negative); Resp Syncy Virus RNA Qual PCR NEGATIVE (Negative); SARS COV2 PCR INHOUSE NEGATIVE (Negative)
== END 2024-06-21 08:59 | disposition home or self-care (01) ==
LOC: HO.LNP 08:58
PROVIDERS: PCP Nurse Practitioner Family; Visit Provider Nurse Practitioner Family
DX: J06.9 Acute upper respiratory infection, unspecified (principal); J32.9 Chronic sinusitis, unspecified
CPT/HCPCS: 0241U

== ENCOUNTER 2024-07-19 16:03 | Outpatient (AMB) | payer OTHER, MEDICAID, SELFPAY ==
--- NOTE | 2024-07-19 16:06 | MHC.PC.OV ---
Vital Signs 07/19/24 16:09 07/19/24 16:19 Height 6 ft Weight 390 lb 6 oz BMI 52.9 BP 138/85 120/78 Blood Pressure Location Rt radial Lt brachial Position Sitting Sitting Respiration 16 Pulse 105 H 100 Pulse Source Pulse Oximeter Auscultation Temp 98.2 F Temp Source Temporal Artery Scan Pulse Oximetry (%) 96 Oxygen Delivery Method Room Air Intake Visit Reasons: 10 wks DM, HTN Intake Note: patient here for follow up on DM and HTN Health And Safety Tech Required: No Allergies grass pollen Allergy (Mild, Verified 07/19/24 16:16) Itchy Eyes Medication List - Last Reconciled 07/19/24 by Bienvenido Marquez CNP amlodipine 10 mg PO DAILY 30 days aspirin 81 mg PO DAILY atorvastatin 20 mg PO BEDTIME 30 days azathioprine 150 mg PO DAILY losartan-hydrochlorothiazide 100-25 mg 1 tab PO DAILY 30 days metformin ER 500 mg PO DAILY 90 days metoprolol tartrate 50 mg PO DAILY 30 days miscellaneous medical supply 1 XL BP cuff and monitor omeprazole 20 mg PO DAILY spironolactone 12.5 mg (1/2 x 25 mg) PO DAILY Tobacco use date assessed: 07/19/24 Dental Screening Dental Screen Date: 07/19/24 Did you have a dental visit in the last 12 months?: No Did you have a dental problem in the last 6 months where you did not have access to dental care?: No Was dental information given to patient?: Patient has dentist HPI HPI Comments History of Present Illness Details 43-year-old male presents for hypertension and diabetes follow up. He admits to taking his medications as prescribed without adverse reactions. He has been making healthy dietary choices, including low salt and carbs. He offers no complaints and denies acute symptoms at this time. [facility] Medical History (Updated 06/21/24 @ 09:28 by Bienvenido Marquez CNP) Trejo esophagus Hx of Crohn's disease High cholesterol High blood pressure Sinusitis Asthma Surgical History Hx of appendectomy H/O hernia repair Hx of tonsillectomy Family History Mother High blood pressure High cholesterol Diabetes Skin cancer Father High blood pressure Skin cancer Maternal Grandmother Diabetes Social History Housing: Other Patient Tobacco Use Status: Former Tobacco user e-Cigarette/Vaping Use: Never Used Second Hand Smoke Exposure: No service: No Current occupational status: employed Current occupation: [employer]er Cognitive needs: No Hearing needs: No Vision needs: No Questionnaire Thrive Questionnaire Date Thrive assessed: 06/21/24 I am a: Patient What is your living situation today?: I have a steady place to live Within the past 12 months, did the food you bought not last and you didn't have the money to get more?: Never true Within the past 12 months, did you worry whether your food would run out before you got money to buy more?: Never true Do you have trouble paying for medicines?: No Do you have trouble getting transportation to medical appointments?: No Do you have trouble paying your heating and electricity bill?: No Do you have trouble taking care of your child, family member or friend?: No Do you have trouble with day-to-day activities such as bathing, preparing meals, shopping, managing finances, etc.?: No Are you currently unemployed and looking for a job?: No Are you interested in more education?: No Please select the resources that you would like help with: None Currently or been in a relationship where the following occur: No concerns reported THRIVE Score: 0 RODO-7 AMB Questionnaire RODO-7 Date RODO - 7 assessed: 07/14/23 Source: Developed by Drs. Jordi Dominguez, Amy Alatorre, Torres Godinez and colleagues, with an educational tuan from [employer]. Review of Systems Const Details: Const Denies chills, Denies fatigue, Denies fever(s), Denies headache(s) and Denies weakness ENT Denies dizziness and Denies headache(s) Card Denies chest pain, Denies lightheadedness, Denies dyspnea and Denies other (Palpitations) Resp Denies cough, Denies dyspnea, Denies wheezing and Denies other ( shortness of breath) GI Denies abdominal pain, Denies melena, Denies hematochezia, Denies change in bowel habits, Denies dyspepsia and Denies nausea Denies hematuria and Denies dysuria Musc Denies abnormal gait, Denies myalgias, Denies arthralgias, Denies numbness and Denies tingling Skin/Breast Denies rash, Denies unusual bruising and Denies wounds Neuro Denies abnormal gait, Denies dizziness, Denies headache(s), Denies memory loss, Denies numbness, Denies Sensory deficit (Neuro), Denies tingling and Denies weakness Psych Denies anxiety, Denies depression, Denies memory loss Endo Denies cold intolerance, Denies fatigue, Denies heat intolerance, Denies polydipsia and Denies polyuria Aller/Immun Denies wheezing Physical exam (Primary Care) Tobacco/Smoking Status: Tobacco use Status Tobacco use date assessed 06/21/24 07/19/24 16:07 Patient Tobacco Use Status Former Tobacco user 07/19/24 16:07 e-Cigarette/Vaping Use Never Used 07/19/24 16:07 Thrive Assessment: Date of Thrive Assessment Date Thrive assessed 06/21/24 07/19/24 16:07 Currently or been in a relationship where the following occur: No concerns reported Const Other: General: no acute distress and well developed Nutritional Appearance: well nourished Orientation/consciousness: patient oriented x3 HENMT Head: Yes normocephalic and Yes atraumatic Eyes General: appearance normal, both eyes and all related structures Pupils: Equal, round and reactive pupils present EOM: EOMs intact bilaterally Resp Effort & Inspection: normal respiratory effort Auscultation: clear to auscultation bilaterally Cardio Rate: regular rate Rhythm: regular rhythm Heart sounds: S1 normal heart sound present, S2 normal heart sound present, no gallops, no murmurs and no rubs GI Palpation (GI): No Abdominal aortic bruit present, Soft to palpation, nontender, No hepatosplenomegaly present and No Rebound tenderness present Auscultation: normal bowel sounds General: Yes no CVA tenderness Back/Spine/Pelvis Back: no CVA tenderness Cervical Spine: cervical ROM normal and No Cervical spine tenderness Thoracic/Lumbar Spine: thoraco-lumbar ROM normal, No pain with thoraco-lumbar ROM, No thoracic spinal tenderness and No lumbar spinal tenderness Extrem General: Yes normal to inspection, No edema and No calf tenderness Skin General: warm and dry. Normal skin color. Normal skin turgor Neuro General: patient oriented x3, gait normal and no focal neuro deficit Cranial nerves: Yes Equal, round and reactive pupils present Cognition (Neuro): normal cognition Gait exam (Neuro): Normal gait present Sensory Exam: No Sensory deficit (Neuro) Psych Appearance: grossly normal Affect: normal affect Attitude: cooperative Thought process: Normal thought process present Results AMB Hemoglobin A1c AMB Hemoglobin A1c 7.6 % Last Edit by Deneen Zavala on 07/19/24 16:24 Coding Level of Care Code Est Pt Level 3 (49508) Diagnoses Primary hypertension I10 Hypertension type: primary hypertension Diabetes E11.9 Laboratory tests ordered as part of a complete physical exam (CPE) Z00.00 Assessment & Plan Assessment & Plan (1) High blood pressure: Code(s): I10 - Essential (primary) hypertension Category: Medical Qualifiers: Hypertension type: primary hypertension Qualified Code(s): I10 - Essential (primary) hypertension Plan: Resting blood pressure is 120/78, within goal of less than 130/80. Continue current treatment regimen. Follow up in 2 months for an extended physical or soon with symptoms or concerns. Perform fasting lab work prior. (2) Diabetes: Code(s): E11.9 - Type 2 diabetes mellitus without complications Category: Medical Plan: A1c today is 7.6%, above goal of less than 7.0%. Previous A1c was 6.6%. Increased Metformin ER to 500 mg BID. ADA diet and routine exercise encouraged. Will recheck A1c in 3 months. Verbalized understanding and agreed with the treatment plan. (3) Laboratory tests ordered as part of a complete physical exam (CPE): Code(s): Z00.00 - Encounter for general adult medical examination without abnormal findings Category: Medical Plan: Fasting labs ordered as part of a complete physical exam. Advised to fast for at least 10 hours before getting labs drawn. May drink water Verbalized understanding and agreed with treatment plan. Orders: Orders AMB Hemoglobin A1c Today Z13.9 - Encounter for screening, unspecified Complete Blood Count Auto Diff 2 Months Z00.00 - Encounter for general adult medical examination without abnormal findings Lipid Panel 2 Months Z00.00 - Encounter for general adult medical examination without abnormal findings Comprehensive [place]. Panel Fast 2 Months Z00.00 - Encounter for general adult medical examination without abnormal findings TSH reflex Free T4 2 Months Z00.00 - Encounter for general adult medical examination without abnormal findings UA CC w/rflx Micro + Cult 2 Months Z00.00 - Encounter for general adult medical examination without abnormal findings Microalbumin, Random (w Creat) 2 Months Z00.00 - Encounter for general adult medical examination without abnormal findings Medications: Changed From metformin ER 500 mg PO DAILY 90 days 90 tabs 1RF To metformin ER 500 mg PO BID 90 days 180 tabs 1RF
[2024-07-19 16:09] VITALS: BP 138/85; PULSE 105; RESP 16; TEMP 36.8; O2SAT 96; BMI 52.9
[2024-07-19 16:19] VITALS: BP 120/78; PULSE 100
== END 2024-07-19 16:27 | disposition home or self-care (01) ==
PROVIDERS: PCP Nurse Practitioner Family; Visit Provider Nurse Practitioner Family
DX: I10 Essential (primary) hypertension (principal); E11.9 Type 2 diabetes mellitus without complications; Z00.00 Encounter for general adult medical examination without abnormal findings; Z13.9 Encounter for screening, unspecified

== ENCOUNTER → 2024-07-19 16:03 | Outpatient (BNVA) | payer OTHER, MEDICAID, SELFPAY | PROVIDERS: PCP Nurse Practitioner Family; Visit Provider Nurse Practitioner Family | DX: I10 Essential (primary) hypertension (principal); E11.9 Type 2 diabetes mellitus without complications; Z79.84 Long term (current) use of oral hypoglycemic drugs | CPT/HCPCS: 83036 ==

== ENCOUNTER 2024-08-03 10:39 | Outpatient (REF) | payer OTHER, MEDICAID, SELFPAY ==
[2024-08-03 14:48] LABS: Anion Gap 11 (12-20); Blood Urea Nitrogen 15 mg/dL (9-16); Calcium 8.9 mg/dL (8.4-10.2); Carbon Dioxide 27 mmol/L (22-29); Chloride 108 mmol/L (96-108); Estimated Glomerular Filt Rate > 60; Sodium 142 mmol/L (135-145)
== END 2024-08-03 10:40 | disposition home or self-care (01) ==
LOC: HO.WFDLDS 10:39
PROVIDERS: Visit Provider Internal Medicine Hypertension Specialist
DX: I72.2 Aneurysm of renal artery (principal); I10 Essential (primary) hypertension
CPT/HCPCS: 36415; 80051; 82310; 82565; 84520

== ENCOUNTER 2024-08-04 11:18 | Outpatient (AMB) | payer OTHER, MEDICAID, SELFPAY ==
--- NOTE | 2024-08-04 11:17 | HO.NEPHOV ---
Vital Signs 08/04/24 11:18 08/04/24 11:33 Height 6 ft Weight 395 lb 4 oz BMI 53.6 BP 172/98 H 146/86 H Blood Pressure Location Lt brachial Lt brachial Position Sitting Sitting Pulse 70 Pulse Source Pulse Oximeter Pulse Oximetry (%) 98 Oxygen Delivery Method Room Air Intake Visit Reasons: Resistant Hypertension/ Conf Veterinary Virus Serum Inspector Required: No Accompanied by: Spouse Allergies grass pollen Allergy (Mild, Verified 08/04/24 11:21) Itchy Eyes Medication List - Last Reconciled 08/04/24 by Sanford Logan MD amlodipine 10 mg PO DAILY 30 days aspirin 81 mg PO DAILY atorvastatin 20 mg PO BEDTIME 30 days azathioprine 150 mg PO DAILY losartan-hydrochlorothiazide 100-25 mg 1 tab PO DAILY 30 days metformin ER 500 mg PO BID 90 days metoprolol tartrate 50 mg PO DAILY 30 days miscellaneous medical supply 1 XL BP cuff and monitor omeprazole 20 mg PO DAILY spironolactone 25 mg PO DAILY Do you need a note to return to daycare/school/sports/work: No HPI Comments Details: RODNEY IS A PLEASANT 43-YEAR-OLD MAN WITH A HISTORY OF CROHN'S DISEASE AND OBESITY. HE WAS STARTED ON ANTIHYPERTENSIVE MEDICATIONS ABOUT A YEAR AGO. CURRENTLY HE IS ON 3 ANTIHYPERTENSIVE MEDICATIONS. 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 THIS WAS ESSENTIALLY UNCHANGED FROM THE IMAGING DONE IN 2019. HE IS REFERRED FOR FURTHER EVALUATION OF HYPERTENSION. 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 Lungs entry equal no rales. Heart S1-S2 heard no gallop or rub. Abdomen soft nontender. Neuro alert awake oriented. No asterixis. Extremities no edema. 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 RODNEY HAS RESISTANT HYPERTENSION IN THE SETTING OF OBESITY OBSTRUCTIVE SLEEP APNEA AND RENAL ARTERY ANEURYSM. RENAL ARTERY ANEURYSM measures 9 mm based on recent CT scan done in 2023. This was reportedly unchanged compared to the CT scan in 2019. Continue to monitor aneurysm Refer to vascular surgeon if size increases. Keep aspirin 80 mg once a day. Resistant hypertension with a combination of above. He needs weight loss. You should continue using CPAP. Based on a 24 hour ABP M , Keep spironolactone Increase done from 12.5 mg to 25 mg daily. Follow renal panel with potassium Orders: Orders Basic Metabolic Panel 4 Weeks I10 - Essential (primary) hypertension, I72.2 - Aneurysm of renal artery Medications: Changed From spironolactone 12.5 mg (1/2 x 25 mg) PO DAILY 45 tabs 1RF To spironolactone 25 mg PO DAILY 90 tabs 1RF Coding Level of Care Code Est Pt Level 4 (31216) Diagnoses Primary hypertension I10 Hypertension type: primary hypertension Renal artery aneurysm I72.2 Sleep apnea G47.30 Morbid obesity with BMI of 50.0-59.9, adult E66.01; Z68.43
[2024-08-04 11:18] VITALS: BP 172/98; PULSE 70; O2SAT 98; BMI 53.6
[2024-08-04 11:33] VITALS: BP 146/86
== END 2024-08-04 11:36 | disposition home or self-care (01) ==
PROVIDERS: PCP Nurse Practitioner Family; Visit Provider Internal Medicine Hypertension Specialist
DX: I10 Essential (primary) hypertension (principal); I72.2 Aneurysm of renal artery; G47.30 Sleep apnea, unspecified; E66.01 Morbid (severe) obesity due to excess calories; Z68.43 Body mass index [BMI] 50.0-59.9, adult
CPT/HCPCS: 99214

== ENCOUNTER 2024-09-22 13:34 | Outpatient (AMB) | payer OTHER, MEDICAID, SELFPAY ==
--- OUTSIDE RECORDS SUMMARY | 2024-09-22 13:40 | XMS_ITS | Encounter Summary ---
Author Organization [facility] Address [address] [place] [address] Care Team Providers Care Die Cast Supervisor Name Role Phone Soni Metz MD Primary Care Provider Moise [place] Primary Care Provider [phone] Jong Olivia MD Primary Care Provider Encounter Details Date Type Department Care Team Description 01/21/2021 Hospital Medical Records [address] [place] [address] Jv Thompson MD [address] [place] [address] Social History Tobacco Use Types Packs/Day Years Used Date Smoking Tobacco: Former Cigarettes 0.5 1 0 08/09/1999 - 08/09/2012 Smokeless Tobacco: Former Comments:since age 29 quit 2 013 Alcohol Use Standard Drinks/Week Comments Yes 0 (1 standard drink = 0.6 oz pur e alcohol) 1 beer /year Sex Assigned at Date Recorded Not on file Job Start Date Occupation Industry Not on file Not on file Not on file COVID-19 Exposure Response Date Recorded In the last month, have you been in contact with someone who was confirmed or suspected to have Coronavirus / COVID-19? No / Unsure 01/14/2021 9:50 AM EDT documented as of this encounter Plan of Treatment Not on file documented as of this encounter Visit Diagnoses Not on filedocumented in this encounter Care Teams Die Cast Supervisor Relationship Specialty Start Date End Date Soni Metz MD PCP - General 07/01/10 02/02/22 Moise Ponce [address] [place] [address] PCP - General Internal Medicine 02/03/22 07/07/22 Jong Olivia MD [address] [place] [address] PCP - General Internal Medicine 07/08/22 documented as of this encounter
--- OUTSIDE RECORDS SUMMARY | 2024-09-22 13:40 | XMS_ITS | Encounter Summary ---
Author Organization [facility] Address [address] [place] [address] Care Team Providers Care Cad Programmer Name Role Phone Jong Olivia MD Primary Care Provider Encounter Details Date Type Department Care Team Description 12/24/2022 Refill Adult Medicine [address] [address] Moise Ponce [address] [place] [address] Social History Tobacco Use Types Packs/Day Years [...] file Not on file Not on file documented as of this encounter Miscellaneous Notes * Telephone Encounter - Skye Grimes M.A. - 12/24/2022 10:13 AM EDT Last office visit 06/10/22 Pt needs appt scheduled to process documented in this encounter Plan of Treatment Not on file documented as of this encounter Visit Diagnoses Not on filedocumented in this encounter Care Teams Cad Programmer Relationship Specialty Start Date End Date Jong Olivia MD [address] [place] [id number] PCP - General Internal Medicine 07/08/22 documented as of this encounter
--- OUTSIDE RECORDS SUMMARY | 2024-09-22 13:40 | XMS_ITS | Encounter Summary ---
Author Organization [facility] Address [address] [place] [address] Care Team Providers Care Instrument Tester Name Role Phone Soni Metz MD Primary Care Provider Moise [place] Primary Care Provider [phone] Jong Olivia MD Primary Care Provider Encounter Details Date Type Department Care Team Description 11/18/2015 Orders Only Medical Records [address] [place] [address] Le Marrero PA-C Social History Tobacco Use Types Packs/Day Years Used Date Smoking Tobacco: Former Cigarettes 0.5 1 Smokeless Tobacco: Never Comments:since age 29 quit 2 013 Alcohol Use Standard Drinks/Week Comments No 0 (1 standard drink = 0.6 oz pur e alcohol) Sex Assigned at Date Recorded Not on file Job Start Date Occupation Industry Not on file Not on file Not on file documented as of this encounter Plan of Treatment Not on file documented as of this encounter Procedures Procedure Name Priority Date/Time Associated Diagnosis Comments OUTSIDE SLEEP STUDY Routine 11/12/2015 documented in this encounter Results * OUTSIDE SLEEP STUDY (11/12/2015) Le Marrero PA-C PULMONOLOGY documented in this encounter Visit Diagnoses Not on filedocumented in this encounter Care Teams Instrument Tester Relationship Specialty Start Date End Date Soni Metz MD PCP - General 07/01/10 02/02/22 Moise Ponce [address] [place] [address] PCP - General Internal Medicine 02/03/22 07/07/22 Jong Olivia MD [address] [place] [id number] PCP - General Internal Medicine 07/08/22 documented as of this encounter
--- OUTSIDE RECORDS SUMMARY | 2024-09-22 13:40 | XMS_ITS | Encounter Summary ---
Author Organization [facility] Address [address] [place] [address] Care Team Providers Care Cake Press Operator Helper Name Role Phone Soni Metz MD Primary Care Provider Moise [place] Primary Care Provider [phone] Jong Olivia MD Primary Care Provider Reason for Visit * Reason Onset Date Comments Orders Call 11/12/2015 unresulted order s Encounter Details Date Type Department Care Team Description 11/12/2015 Telephone Medicine/Pediatrics - [address] [phone] Demetri Gardiner PA-C Orders Call (unresulted orders) Social History Tobacco Use Types Packs/Day Years [...] encounter Miscellaneous Notes * Telephone Encounter - Demetri Gardiner PA-C - 11/12/2015 3:15 PM EDT Thanks for fyi * Telephone Encounter - Melanie López M.A. - 11/12/2015 3:05 PM EDT FYI only: I have been unable to contact this patient, after multiple attempts, to make an appointment for the xray of the chest you ordered on 07/10/15. I have mailed out the Unresulted Orders letter to the patient on 09/12/15 documented in this encounter Plan of Treatment Not on file documented as of this encounter Visit Diagnoses Not on filedocumented in this encounter Care Teams Cake Press Operator Helper Relationship Specialty Start Date End Date Soni Metz MD PCP - General 07/01/10 02/02/22 Moise Ponce [address] [place] [address] PCP - General Internal Medicine 02/03/22 07/07/22 Jong Olivia MD [address] [place] [address] PCP - General Internal Medicine 07/08/22 documented as of this encounter
--- OUTSIDE RECORDS SUMMARY | 2024-09-22 13:40 | XMS_ITS | Clinical Summary ---
Author Organization [facility] Address [address] [place] [address] Care Team Providers Care Sulfate Drier Machine Operator Name Role Phone Jong Olivia MD Primary Care Provider Allergies Active Allergy Reactions Criticality Noted Date Comments Pollen Extracts 07/29/2010 Seasonal allergies Medications amLODIPine (NORVASC) 5 mg tablet Take 1 tablet (5 mg total) by mouth 1 (one) time each day. 3 Active losartan-hydroC HLOROthiazide (HYZAAR) 50-12.5 mg per tablet Take 1 tablet by mouth 1 (one) time each day. 3 Active metFORMIN XR (GLUCOPHAGE-XR) 500 mg 24 hr tablet Take 1 tablet (500 mg total) by mouth 1 (one) time each day in the morning. With breakfast 3 Active predniSONE 5 mg tablets,dose pack Take by mouth. Activ e albuterol HFA (PROAIR HFA ; PROVENTIL HFA ; VENTOLIN HFA) 90 mcg/actuation inhaler Inhale 2 puffs every 6 (six) hours if needed for wheezing or shortness of breath. 3 Active atorvastatin (LIPITOR) 10 mg tablet Take 1 tablet (10 mg total) by mouth 1 (one) time each day. 2 Active montelukast (SINGULAIR) 10 mg tablet Take 1 tablet (10 mg total) by mouth at bedtime. 2 Active meloxicam (MOBIC) 15 mg tablet Take 1 tablet (15 mg total) by mouth 1 (one) time each day. 2 Active blood sugar diagnostic (FreeStyle Lite Strips) test strip USE TO TEST BLOOD SUGAR ONCE DAILY 2 Active FREESTYLE LANCETS MISC Use to test blood sugar once daily 2 Active azaTHIOprine (IMURAN) 100 mg tablet Take 1.5 tablets (150 mg total) by mouth 1 (one) time each day. Active blood-glucose meter kit Use to test blood sugar once daily 1 Active UNABLE TO FIND CPAP HISTORICAL (HISTORICAL CPAP) Inhale into the lungs. SMS-pressure 15 Active Active Problems Problem Noted Date Diagnosed Date DM (diabetes mellitus), type 2 with renal compli cations 10/08/2023 Asthma, exercise induced 10/08/2023 Chronic sinusitis 10/08/2023 Family history of diabetes mellitus 10/08/2023 Morbid obesity with body mas s index (BMI) of 50.0 to 59.9 in adult 10/08/2023 Microalbuminuria 05/15/2022 Essential hypertension 12/13/2020 Anemia 05/15/2019 Crohn's disease without complication 07/23/2016 Colitis 03/17/2016 Overview (10/08/2023): Possibly Crohn's Tubular adenoma of colon 12/26/2015 Overview (10/08/2023): On colonoscopy 12/26/15; CN q 5 yrs Obstructive sleep apnea hypopnea, severe 016 Overview (10/08/2023): No-show for ENT appointment N/S for Pulmo 03/30/2016 Vitamin D deficiency 10/25/2015 Fatty liver 01/14/2015 Hyperlipidemia, mixed 11/07/2012 Anxiety 10/07/2010 Allergic rhinitis 10/07/2010 Immunizations Name Administration Dates Next Due Influenza Quadravalent, MDCK , 0.5ml, preservative free (Flucelvax) 6mo and older 05/10/2022,05/04/2021,06/14/2018 Influenza trivalent, with pr eservative (Fluzone; Afluria) 6mo and older 06/14/2018,06/10/2016 Influenza, Unspecified 05/03/2021 Moderna SARS-CoV-2 COVID-19, mRNA, LNP-S, preservative free 10/08/2020 Td Tetanus diptheria (Tdvax) 7yo and older 08/09 Tdap Tetanus diptheria acell ular pertussis (Boostrix; Adacel) 7yo and older 11/01/2012 Surgical History Surgery Date Site/Laterality Comments TONSILLECTOMY ADENOIDECTOMY, BILATERAL MYRINGOTOMY AND TUBES 6 or 7 yrs old PROCEDURE: [place] TONSILLECTOMY & ADENOIDECTOMY <AGE 12 APPENDECTOMY 12/22/2014 PROCEDURE: LAPAROSCOPIC APPENDECTOMY; COMMENT: Dr Ajay Hoyos INCISIONAL HERNIA REPAIR 01/21/2021 N/A PROCEDURE: [place] IMPLANT MESH OPN HERNIA RPR/DEBRIDEMENT CLOSURE; COMMENT: laparoscopic repair of incisional hernia with mesh - Dr. Jv Thompson [facility] Medical History Medical History Date Comments Asthma, exercise induced DX:Asth ma, exercise induced Allergic rhinitis DX:Allergic rh initis Chronic sinusitis DX:Chronic sin usitis Family history of diabetes mellitus 11/01/2012 DX:Family history of diabetes mellitus Hypertriglyceridemia 11/07/2012 DX:Hypertri glyceridemia Diabetes type 2, controlled (CMS/HCC) DX:Diabetes type 2, controlled (HCC) DM (diabetes mellitus), type 2 with renal complications (CMS/HCC) DX:DM (diabetes mellitus), t ype 2 with renal complications ([facility]) Microalbuminuria 05/15/2022 DX:Microalbumin uria Family History Medical History Relation Name Comments Crohn's disease Father Relation Name Status Comments Father Alive Crohns dz, depr ession Maternal Grandfather unknown Maternal Grandmother dm comp lication Mother Alive ra, dm,htn; ski n cancer Paternal Grandfather unknown Paternal Grandmother unknown poss ca Son Alive autism; Bipin 11/30/07 Social History Tobacco Use Types Packs/Day Years Used Date Smoking Tobacco: Former Cigarettes 0.5 13 0 08/09/1999 - 08/09/2012 Smokeless Tobacco: Former Alcohol Use Standard Drinks/Week Comments Yes 0 (1 standard drink = 0.6 oz pur e alcohol) Sex and Gender Information Value Date Recorded Sex Assigned at Not on file Legal Sex Male 10:21 PM EST Gender Identity Not on file Sexual Orientation Not on file Obstetrics History Last Filed Vital Signs Vital Sign Reading Time Taken Comments Blood Pressure 132/90 03/09/2024 9:42 AM EDT Pulse 66 03/09/2024 9:42 AM EDT Temperature - - Respiratory Rate - - Oxygen Saturation - - Inhaled Oxygen Concentration - - Weight 177 kg (390 lb) 03/09/2024 9:42 AM EDT Height 180.3 cm (5' 11 ) 03/09/2024 9:42 AM EDT Body Mass Index 54.39 03/09/2024 9:42 AM EDT Plan of Treatment Upcoming Encounters Date Type Department Care Team (Late st Contact Info) Description 03/19/2025 2:15 PM EDT Office Visit Pulmonolgy - [place] [address] [facility] [address] [place] [phone] Karyna Garvin MD [address] [address] Health Maintenance Due Date Last Done Comments Diabetes: Annual Retina Eye Exam 1992 Hepatitis B Vaccines (1 of 3 - 19+ 3-dose series) 2001 Pneumococcal Vaccine: Pediatrics (0 to 5 Years) and At-Risk Patients (6 to 64 Years) (1 of 2 - PCV) 2001 Diabetes: Annual Foot Exam 02/25/2022 02/25/2021 Depression Screening 07/18/2022 HIV Screening 07/18/2022 Social Influencers of Health Screening 07/18/2022 DTaP,Tdap,and Td Vaccines (3 - Td or Tdap) 11/01/2022 11/01/2012, 08/09/2002 Diabetes: Blood Sugar Control Test (HGBA1C) 11/13/2022 05/15/2022, 05/15/2022 Diabetes: Annual Urine Albumin-Creatinine Ratio (uACR) 05/15/2023 05/15/2022, 05/15/2022 Diabetes: Annual GFR (Glomerular Filtration Rate) 05/15/2023 05/15/2022 Hypertension/CHF/CAD Annual BMP Blood Test 05/15/2023 05/15/2022 COVID-19 Vaccine () 04/09/2024 07/11/2021, 11/08/2020, 10/11/2020, Additional history exists Influenza Vaccine (#1) 2024 2, 05/04/2021, 05/03/2021, Additional history exists Colorectal Cancer Screening: Colonoscopy 04/11/2025 04/11/2020 Cholesterol Screening (Lipid Panel) 05/15/2027 05/15/2022, 05/15/2022 Hepatitis C Screening Completed 01/23/2016 HIB Vaccines Aged Out No longer eligi ble based on patient's age to complete this topic HPV Vaccines Aged Out No longer eligi ble based on patient's age to complete this topic Hepatitis A Vaccines Aged Out No long er eligible based on patient's age to complete this topic IPV Vaccines Aged Out No longer eligi ble based on patient's age to complete this topic MMR Vaccines Aged Out No longer eligi ble based on patient's age to complete this topic Meningococcal ACWY Vaccine Aged Out N o longer eligible based on patient's age to complete this topic Meningococcal B Vacine Aged Out No lo nger eligible based on patient's age to complete this topic RSV Immunization Patients Under 20 months Aged Out No longer eligible based on patient's age to complete this topic Varicella Vaccines Aged Out No longer eligible based on patient's age to complete this topic Procedures Procedure Name Priority Date/Time Associated Diagnosis Comments URINE ALBUMIN CREATININE RATIO Routine 05/15/2022 ANNUAL BMP BLOOD TEST Routine 05/15/2022 HEMOGLOBIN A1C Routine 05/15/2022 LIPID PANEL Routine 05/15/2022 COLONOSCOPY Routine 04/11/2020 HEPATITIS C SCREENING Routine 01/23/2016 from Last 3 Months or Most Recently Relevant to Health Maintenance Results * Urine Albumin Creatinine Ratio (05/15/2022) Urine Albumin Creatinine Ratio Abstracted us Historical Provider MD HEALTH MAINTENANCE Final Result * Annual BMP Blood Test (05/15/2022) Annual BMP Blood Test Abstracted Result [facility] Provider HEALTH MAINTENANCE Final Result * Hemoglobin A1c (05/15/2022) [facility] Hemoglobin A1C 6.2 <=6.5 % Blood Venous blood specimen / Unknown Result [facility] Provider LAB BLOOD ORDERABLES Shazia l Result * (ABNORMAL) Lipid panel (05/15/2022) [facility] LDL/HDL Ratio 5(A) 0 - 4 Triglycerides 109 0 - 150 mg/dL Cholesterol 187 0 - 200 mg/dL HDL 36(A) >=40 mg/dL LDL Cholesterol 130(A) 0 - 100 mg/dL Blood Venous blood specimen / Unknown Result [facility] Provider LAB BLOOD ORDERABLES Shazia l Result * Colonoscopy (04/11/2020) [facility] Colonoscopy Abstracted, no interpretation Anatomical Region Laterality Modality Other Result [facility] Provider HEALTH MAINTENANCE Final Result * Hepatitis C Screening (01/23/2016) [facility] Hepatitis C Screening Abstracted Result [facility] Provider HEALTH MAINTENANCE Final Result from Last 3 Months or Most Recently Relevant to Health Maintenance Care Teams Sulfate Drier Machine Operator Relationship Specialty Start Date End Date Jong Olivia MD [address] [place] [address] PCP - General 07/08/22
--- OUTSIDE RECORDS SUMMARY | 2024-09-22 13:40 | XMS_ITS | Encounter Summary ---
Author Organization [facility] Address [address] [place] [address] Care Team Providers Care Inspector Outside Steam Distribution Name Role Phone Soni Metz MD Primary Care Provider Moise [place] Primary Care Provider [phone] Jong Olivia MD Primary Care Provider Encounter Details Date Type Department Care Team Description 08/22/2019 Prop Drawer Report Medical Records [address] [place] [address] Tobias Floyd MD Social History Tobacco Use Types Packs/Day Years [...] on filedocumented in this encounter Care Teams Inspector Outside Steam Distribution Relationship Specialty Start Date End Date Soni Metz MD PCP - General 07/01/10 02/02/22 Moise Ponce [address] [place] [address] [id number] PCP - General Internal Medicine 02/03/22 07/07/22 Jong Olivia MD [address] [place] [address] [phone] PCP - General Internal Medicine 07/08/22 documented as of this encounter
--- OUTSIDE RECORDS SUMMARY | 2024-09-22 13:40 | XMS_ITS | Encounter Summary ---
Author Organization [facility] Address [address] [place] [address] Care Team Providers Care Health Information Administrator Name Role Phone Jong Olivia MD Primary Care Provider Reason for Visit * Reason Onset Date Comments Prior Authorization 09/23/2022 Encounter Details Date Type Department Care Team Description 09/23/2022 Telephone Adult Medicine [facility] [address] [place] [address] Jong Olivia MD [address] [place] [address] Prior Authorization Social History Tobacco Use Types Packs/Day Years [...] Exposure Response Date Recorded In the last 10 days, have yo u been in contact with someone who was confirmed or suspected to have Coronavirus/COVID-19? No / Unsure 09/17/2022 7:57 AM EST documented as of this encounter Miscellaneous Notes * Telephone Encounter - Elena Pham M.A. - 09/25/2022 4:57 PM EST Prior authorization for the albuterol was approved Approved from 09/25/22 , must be filled at least once every 365 days or this will Appproval faxed to [facility] at [phone] * Telephone Encounter - Elena Pham M.A. - 09/25/2022 10:54 AM EST Message from cover my meds stating Prior auth was cancelled, that [facility] does not review for thismedication Prior authorization redone on [employer] [facility] ZoomInfo form and faxed today Dx code J45.20 mild intermittent asthma Trials Flovent Singulair Continuation of therapy since 2011 * Telephone Encounter - Elena Pham M.A. - 09/24/2022 9:48 AM EST Prior authorization for the albuterol was completed today on cover my meds Dx code J45.20 mild intermittent asthma unspecified whether complicated. Continuation of therapy * Telephone Encounter - Tucker Wallace - 09/23/2022 1:14 PM EST Prior Authorization for Medication-do not complete and send this encounter unless you have the fax from the pharmacy. Is this a Cover My Meds request: Yes -- Hurt Code [id number] Name of Medication Albuterol Sulfate HFA 108 (90 base) Dose of Medication What is the RX # from the faxed refill? How does patient take this med? Not on form What Pharmacy did the fax come from: [facility] fax #: [phone] [employer] Party Information from fax: What Prescription Plan does the patient have? Not on form BIN/PCN if applicable: Not on form Cardholder ID:Not on form Person Code: Not on form Relationship Code: Not on form Help desk phone: Not on form documented in this encounter Plan of Treatment Not on file documented as of this encounter Visit Diagnoses Not on filedocumented in this encounter Care Teams Health Information Administrator Relationship Specialty Start Date End Date Jong Olivia MD [address] [place] [phone] PCP - General Internal Medicine 07/08/22 documented as of this encounter
--- OUTSIDE RECORDS SUMMARY | 2024-09-22 13:40 | XMS_ITS | Encounter Summary ---
Author Organization [facility] Address [address] [place] [address] Care Team Providers Care Assistant Project Manager Name Role Phone Soni Metz MD Primary Care Provider Moise [place] Primary Care Provider [phone] Jong Olivia MD Primary Care Provider Encounter Details Date Type Department Care Team Description 10/14/2020 Telephone Adult Medicine [address] [address] Soni Metz MD Social History Tobacco Use Types Packs/Day [...] encounter Miscellaneous Notes * Telephone Encounter - Lexy Lopez M.A. - 10/14/2020 4:08 PM EST Patient aware of Dr Metz running behind and will call him as soon as she is done with her 3:30 appointment. documented in this encounter Plan of Treatment Not on file documented as of this encounter Visit Diagnoses Not on filedocumented in this encounter Care Teams Assistant Project Manager Relationship Specialty Start Date End Date Soni Metz MD PCP - General 07/01/10 02/02/22 Moise Ponce [address] [place] [address] PCP - General Internal Medicine 02/03/22 07/07/22 Jong Olivia MD [address] [place] [address] PCP - General Internal Medicine 07/08/22 documented as of this encounter
--- OUTSIDE RECORDS SUMMARY | 2024-09-22 13:40 | XMS_ITS | Encounter Summary ---
Author Organization [facility] Address [address] [place] [address] Care Team Providers Care Vending Manager Name Role Phone Soni Metz MD Primary Care Provider Moise [place] Primary Care Provider [phone] Jong Olivia MD Primary Care Provider Encounter Details Date Type Department Care Team Description 12/22/2014 Hospital Medical Records [address] [place] [address] Shae Moss MD [address] [place] [address] [address] [place], [place] [phone] Social History Tobacco Use Types Packs/Day Years [...] on filedocumented in this encounter Care Teams Vending Manager Relationship Specialty Start Date End Date Soni Metz MD PCP - General 07/01/10 02/02/22 Moise Ponce [address] [place] [address] PCP - General Internal Medicine 02/03/22 07/07/22 Jong Olivia MD [address] [place] [id number] PCP - General Internal Medicine 07/08/22 documented as of this encounter
--- OUTSIDE RECORDS SUMMARY | 2024-09-22 13:40 | XMS_ITS | Encounter Summary ---
Author Organization [facility] Address [address] [place] [address] Care Team Providers Care Office Services Manager Name Role Phone Soni Metz MD Primary Care Provider Moise [place] Primary Care Provider [phone] Jong Olivia MD Primary Care Provider Encounter Details Date Type Department Care Team Description 09/09/2017 Harpoon Engagement Planning Operator Report Medical Records [address] [place] [address] Prasadrichaprincess Benjamin [address] [place] [address], [address] [place] [address] Social History Tobacco Use Types Packs/Day Years [...] on filedocumented in this encounter Care Teams Office Services Manager Relationship Specialty Start Date End Date Soni Metz MD PCP - General 07/01/10 02/02/22 Moise Ponce [address] [place] [address] PCP - General Internal Medicine 02/03/22 07/07/22 Jong Olivia MD [address] [place] [phone] PCP - General Internal Medicine 07/08/22 documented as of this encounter
--- OUTSIDE RECORDS SUMMARY | 2024-09-22 13:40 | XMS_ITS | Encounter Summary ---
Author Organization [facility] Address [address] [place] [address] Care Team Providers Care Entry Level Software Engineer Name Role Phone Soni Metz MD Primary Care Provider Moise Madison Primary Care Provider Jong Olivia MD Primary Care Provider Reason for Visit * Reason Onset Date Comments Sleep Apnea 05/22/2020 Provider Call Back 05/22/2020 Encounter Details Date Type Department Care Team Description 05/22/2020 Telephone Pulmonology - [place] [address] [facility] [address] [place] [address] Jennifer Shaffer [facility] [address] [place] [address] Sleep Apnea; Provider Call Back Social History Tobacco Use Types Packs/Day Years [...] encounter Miscellaneous Notes * Telephone Encounter - Marce Jefferson - 05/31/2020 11:01 AM EDT Left message for patient to schedule an audio appointment w/Jennifer - patient would like 3:45-4:00 appt time. * Telephone Encounter - CELESTE Motta - 05/24/2020 11:06 AM EDT I am not in the office that late today. Please coordinate an appointment for 345 or 4 PM on a day that I have an opening. * Telephone Encounter - Elena Pittman - 05/24/2020 11:03 AM EDT Patient returning call (vi) patient can do audio call after 3:45 pm he is at work, please melanie back * Telephone Encounter - Elisabet Torrez M.A. - 05/24/2020 9:13 AM EDT Left patient a message to return call to see if he is able to do audio today with Jennifer. * Telephone Encounter - Sita Mota - 05/24/2020 8:58 AM EDT Epic is showing me your next available appointment is not until 06/13. Is there availability any sooner? * Telephone Encounter - CELESTE Motta - 05/22/2020 11:18 AM EDT Needs appt. Not seen by me in over 2 years. (note: AHI 2.8 within expected range; mask leaking - needs new mask from DME). * Telephone Encounter - Sita Mota - 05/22/2020 11:10 AM EDT Caller requesting call back from provider: Is the caller the patient? YES If caller is not the patient, what is the callers name? Vi Callers relationship to patient? If person calling is not the patient themselves, is there a verbal release in FYI or permanent comments for this person: YES Reason for call back: Patient has been having issues with his CPAP, patient's noticed he has been having 2.8 events per hour which is more than usual for him. Patient's also hears the mask leaking air, it is not getting a good seal and sometimes the patient's lip will slip out of the maskbreaking the seal. She states he gasps for air multiple times a night to the point where it wakes her up. She says these issues have been happening for some time but last night it was really bad. Patient has started nodding off when he comes home from work completely exhausted and not getting restful sleep at night. Please call patient's regarding his apnea, the patient is at work. Caller offered to speak with the nurse for assistance: YES Response: Patient offered to speak with nurse for assistance and patient agreed. Message forwarded to nurse. documented in this encounter Plan of Treatment Not on file documented as of this encounter Visit Diagnoses Not on filedocumented in this encounter Care Teams Entry Level Software Engineer Relationship Specialty Start Date End Date Soni Metz MD PCP - General 07/01/10 02/02/22 Moise Ponce [address] [place] [id number] PCP - General Internal Medicine 02/03/22 07/07/22 Jong Olivia MD [address] [place] [id number] PCP - General Internal Medicine 07/08/22 documented as of this encounter
--- OUTSIDE RECORDS SUMMARY | 2024-09-22 13:41 | XMS_ITS | Encounter Summary ---
Author Organization [facility] Address [address] [place] [address] Care Team Providers Care Delivery Driver/Customer Service Name Role Phone Soni Metz MD Primary Care Provider Moise Madison Primary Care Provider [phone] Jong Olivia MD Primary Care Provider Encounter Details Date Type Department Care Team Description 03/11/2016 Blunger Loader Report Medical Records [address] [place] [id number] Miah Siddiqi Np Social History Tobacco Use Types Packs/Day Years [...] on filedocumented in this encounter Care Teams Delivery Driver/Customer Service Relationship Specialty Start Date End Date Soni Metz MD PCP - General 07/01/10 02/02/22 Moise Ponce [address] [place] [address] [id number] PCP - General Internal Medicine 02/03/22 07/07/22 Jong Olivia MD [address] [place] [address] [id number] PCP - General Internal Medicine 07/08/22 documented as of this encounter
--- OUTSIDE RECORDS SUMMARY | 2024-09-22 13:41 | XMS_ITS | Clinical Summary ---
Author Organization [facility] Address [address] [place] [address] Care Team Providers Care Cleat Feeder Name Role Phone Jong Olivia MD Primary Care Provider Allergies Active Allergy Reactions Severity Noted Date Comments Seasonal Allergies 07/29/2010 Medications Medication Sig Dispensed Refills Start Date End Date Status CPAP Historical (HISTORICAL CPAP) Inhale into the lungs. SMS-pressure 15 0 Active AzaTHIOprine 100 MG Tab Take 150 mg by mouth daily. 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 90 Tablet 1 06/16/2022 Active montelukast (SINGULAIR) 10 MG tablet Take 1 Tablet by mouth at bedtime. 90 Tablet 1 06/16/2022 Active predniSONE 5 MG (21) Tablet Therapy Pack Take by mouth. 0 A ctive ALBUTEROL SULFATE (ProAir HFA) 108 (90 Base) MCG/ACT Aero Soln Inhale 2 Puffs into the lungs every 6 hours as needed for Cough, Wheezing or Shortness of Breath for up to 30 days. 1 g 11 09/17/2022 Active metformin (GLUCOPHAGE-XR) 500 MG 24 hr tablet TAKE 1 TABLET BY MOUTH EVERY MORNING WITH BREAKFAST 90 Tablet 0 04/01/2023 Active amlodipine (NORVASC) 5 MG tablet TAKE 1 TABLET BY MOUTH EVERY DAY 90 Tablet 0 07/28/2023 Active losartan-hydrochloro thiazide (HYZAAR) 50-12.5 MG per tablet TAKE 1 TABLET BY MOUTH EVERY DAY 90 Tablet 0 07/28/2023 Active ALBUTEROL SULFATE (ProAir HFA) 108 (90 Base) MCG/ACT Aero SolnIndications:NEREYDA on CPAP,Mild intermittent asthma, unspecified whether complicated Inhale 2 Puffs into the lungs every 6 hours as needed for Cough, Wheezing or Shortness of Breath. 1 g 11 03/09/2024 03/09/2025 Active Active Problems Problem Noted Date Microalbuminuria 05/15/2022 Essential hypertension 12/13/2020 Anemia 05/15/2019 Morbid obesity with body mass index of 5 0.0-59.9 in adult 07/21/2017 Crohn's disease without complication Colitis 03/17/2016 Overview: Possibly Crohn's Tubular adenoma of colon 12/26/2015 Overview: On colonoscopy 12/26/15; CN q 5 yrs Obstructive sleep apnea hypopnea, severe AHI 108 11/21/2015 Overview: No-show for ENT appointment N/S for Pulmo 03/30/2016 Vitamin D deficiency 10/25/2015 Fatty liver 01/14/2015 Hyperlipidemia, mixed 11/07/2012 Family history of diabetes mellitus 10/08 Anxiety 10/07/2010 Allergic rhinitis, cause unspecified 08/2010 Asthma, exercise induced Chronic sinusitis DM (diabetes mellitus), type 2 with vijaya l complications Resolved Problems Problem Noted Date Resolved Date Tobacco use disorder 12/09/2011 01/17/2013 Immunizations Name Administration Dates Next Due COVID-19 (Moderna) 07/11/2021, 1,10/11/2020, 021 COVID-19 (Moderna) PT Reported 11/08/2020,2020 Influenza (> 6 Months) 06/14/2018,06/10/2016 Influenza Flu (PT Reported) 05/03/2021 Influenza Vaccine-preservati ve Free-quadrivalent 4 Years 05/10/2022,05/04/2021,06/14/2018 TD (STATE SUPPLIED FOR ADULT S AND CHILDREN) 08/09/2002 Tdap 11/01/2012 Family History Medical History Relation Name Comments Crohn's Disease Father Relation Name Status Comments Father Alive Crohns dz, depr ession Maternal Grandfather unknown Maternal Grandmother dm comp lication Mother Alive ra, dm,htn; ski n cancer Paternal Grandfather unknown Paternal Grandmother unknown poss ca Son Alive autism; Bipin 11/30/07 Social History Tobacco Use Types Packs/Day Years Used Date Smoking Tobacco: Former Cigarettes 0.5 1 0 08/09/1999 - 08/09/2012 Smokeless Tobacco: Former Tobacco Cessation:Counseling Given: Not Answered Comments:since age 29 quit 2012 Alcohol Use Standard Drinks/Week Comments Yes 0 (1 standard drink = 0.6 oz pur e alcohol) 1 beer /year Sex Assigned at Date Recorded Not on file Job Start Date Occupation Industry Not on file Not on file Not on file Last Filed Vital Signs Vital Sign Reading Time Taken Comments Blood Pressure 132/90 03/09/2024 9:42 AM EDT Pulse 66 03/09/2024 9:42 AM EDT Temperature 35.9 ??C (96.6 ??F) 03/09/2024 9:42 AM ED T Respiratory Rate 20 03/09/2024 9:42 AM EDT Oxygen Saturation 97% 03/09/2024 9:42 AM EDT Inhaled Oxygen Concentration - - Weight 176.9 kg (390 lb) 03/09/2024 9:42 AM EDT Height 180.3 cm (5' 11 ) 03/09/2024 9:42 AM EDT Body Mass Index 54.39 03/09/2024 9:42 AM EDT Plan of Treatment Health Maintenance Due Date Last Done Comments DIABETES: ANNUAL EYE EXAM 2000 PNEUMOCOCCAL VACCINE FOR HIG H RISK PATIENTS (#1) 2001 DIABETES: ANNUAL FOOT EXAM 02/25/2022 02/25/2021, BASELINE HEALTH EXAM 40-64 2022 11/01/2012, DIABETES: BLOOD SUGAR CONTRO L TEST (HGBA1C) 08/15/2022 05/15/2022, 02/17/2021, 11/18/2020, Additional history exists DTAP/TDAP/TD (2 - Td or Tdap) 11/01/2022 11/01/2012, 08/09/2002 DIABETES/HEART DISEASE: MASHA PANDEY CHOLESTEROL (LDL) 05/15/2023 05/15/2022, 11/18/2020, 08/13/2020, Additional history exists DIABETES: ANNUAL URINE PROTE IN TEST (MICROALBUMIN) 05/15/2023 05/15/2022, 11/18/2020 Covid-19 Vaccine (7 - 2022- 4 season) 2024 07/11/2021, 11/08/2020, 11/08/2020, Additional history exists INFLUENZA (#1) 2024 05/10/2022, 04/10, 05/03/2021, Additional history exists BMI CHECK/ADVISE 08/09/2024 06/16/2022, , 08/28/2021, Additional history exists COLON CANCER SCREENING 04/11/2025 04/11/2020, 2015 Care Teams Cleat Feeder Relationship Specialty Start Date End Date Jong Olivia MD [address] [place] [id number] PCP - General Internal Medicine 07/08/22
--- OUTSIDE RECORDS SUMMARY | 2024-09-22 13:41 | XMS_ITS | Encounter Summary ---
Author Organization [facility] Address [address] [place] [address] Care Team Providers Care Covered Button Maker Name Role Phone Soni Metz MD Primary Care Provider Moise Madison Primary Care Provider [phone] Jong Olivia MD Primary Care Provider Reason for Visit * Reason Onset Date Comments Injection Molding Process Technician Feedback 08/07/2021 Pulmonology (Sle ep Study) Encounter Details Date Type Department Care Team Description 08/07/2021 Telephone Medicine/Pediatrics - [address] [phone] Soni Metz MD Injection Molding Process Technician Feedback (Pulmonology (Sleep Study)) Social History Tobacco Use Types Packs/Day Years [...] encounter Miscellaneous Notes * Telephone Encounter - Mariam Craft - 08/07/2021 10:[address] Metz, You placed a pulmonology referral for the patient to be seen for sleep apnea. Sleep apnea requires a sleep study prior to being scheduled. The last sleep study was done 12/04/15 and is to old to be used for this appointment. I have pended the appropriate order for you to review and complete. documented in this encounter Plan of Treatment Scheduled Orders Name Type Priority Associated Diagnoses Orde r Schedule SLEEP STUDY-FULL NEURO 16 CHANNEL SLEEP STUDY Routine Obstructive sleep apnea hypopnea, severe AHI 108 Expected: 08/16/2021, Expires: 08/07/2022 documented as of this encounter Visit Diagnoses Diagnosis Obstructive sleep apnea hypopnea, severe AHI 108- Primary documented in this encounter Care Teams Covered Button Maker Relationship Specialty Start Date End Date Soni Metz MD PCP - General 07/01/10 02/02/22 Moise Ponce [address] [place] [address] PCP - General Internal Medicine 02/03/22 07/07/22 Jong Olivia MD [address] [place] [address] PCP - General Internal Medicine 07/08/22 documented as of this encounter
--- OUTSIDE RECORDS SUMMARY | 2024-09-22 13:41 | XMS_ITS | Encounter Summary ---
Author Organization [facility] Address [address] [place] [address] Care Team Providers Care Slitter Operator Name Role Phone Soni Metz MD Primary Care Provider Moise Madison Primary Care Provider [phone] Jong Olivia MD Primary Care Provider Reason for Referral * Non LYNDA (Routine) - Authorized/Booked Specialty Diagnoses / Procedures Referred By Contac t Referred To Contact Pulmonology Procedures REFERRAL TO PULMONOLOGY Soni Metz MD [address] [place] [address] Pulmo/[place] [address] [facility] [address] [place] [phone] Referral ID Status Reason Start Date Expiration Date V isits Requested Visits Authorized [id number] Authorized/B ooked 08/04/2021 08/04/2022 1 1 Encounter Details Date Type Department Care Team Description 07/31/2021 Pt. Non Urgent Medic al Question Medicine/Pediatrics - [place] [address] [place] [phone] Soni Metz MD Social History Tobacco Use [...] encounter Miscellaneous Notes * Telephone Encounter - Andrea Boyce - 07/31/2021 3:20 PM ESTFrom: Joe Ramires To: Diallo Isaías Sent: 07/31/2021 3:07 PM EST Subject: Request for a referral to Pulmonology Davon, I was wondering if I could get a referral for Pulmonology. It has been a couple of years since I last saw Jennifer Shaffer and they said I needed a new referral in order to see her again. documented in this encounter Plan of Treatment Not on file documented as of this encounter Visit Diagnoses Not on filedocumented in this encounter Care Teams Slitter Operator Relationship Specialty Start Date End Date Soni Metz MD PCP - General 07/01/10 02/02/22 Moise Ponce [address] [place] [id number] PCP - General Internal Medicine 02/03/22 07/07/22 Jong Olivia MD [address] [place] [id number] PCP - General Internal Medicine 07/08/22 documented as of this encounter
--- NOTE | 2024-09-22 13:48 | A.OFFPC_ITS ---
Vital Signs 09/22/24 13:49 Height 6 ft Weight 387 lb 4 oz BMI 52.5 BP 126/86 Blood Pressure Location Lt brachial Respiration 18 Pulse 94 Pulse Source Pulse Oximeter Temp 97.6 F Temp Source Oral Pulse Oximetry (%) 96 Oxygen Delivery Method Room Air Intake Visit Reasons: yeast infection Intake Note: Yeast infection. Itching, pain and discharge, sores, white discharge on foreskin of penis. Tried Monistat cream yesterday. Allergies grass pollen Allergy (Mild, Verified 09/22/24 14:15) Itchy Eyes Medication List - Last Reconciled 09/22/24 by Bienvenido Marquez CNP amlodipine 10 mg PO DAILY aspirin 81 mg PO DAILY atorvastatin 20 mg PO BEDTIME 30 days azathioprine 150 mg PO DAILY losartan-hydrochlorothiazide 100-25 mg 1 tab PO DAILY 90 days metformin ER 500 mg PO BID 90 days metoprolol tartrate 50 mg PO DAILY 30 days miscellaneous medical supply 1 XL BP cuff and monitor omeprazole 20 mg PO DAILY spironolactone 25 mg PO DAILY Tobacco use date assessed: 07/19/24 Dental Screening Dental Screen Date: 07/19/24 HPI HPI Comments History of Present Illness Details 44-year-old male, accompanied by his wif oksana, presents with complaints of itching, burning pain, red and white discharged to the foreskin of his penis. He tried Monistat cream as today which was soothing to the affected skin. His signs and symptoms started 3 days ago and have progressively worsened. He denies burning, pain, or discharge with urination. Denies fever, chills, body aches, fatigue, weakness. He has no concerns for STDs. [facility] Medical History Trejo esophagus Hx of Crohn's disease High cholesterol High blood pressure Sinusitis Asthma Surgical History Hx of appendectomy H/O hernia repair Hx of tonsillectomy Family History Mother High blood pressure High cholesterol Diabetes Skin cancer Father High blood pressure Skin cancer Maternal Grandmother Diabetes Social History (Updated 09/22/24 @ 13:55 by Enid Escobedo CMA) Housing: Other Alcohol intake: current Patient Tobacco Use Status: Former Tobacco user e-Cigarette/Vaping Use: Never Used Second Hand Smoke Exposure: No service: No Current occupational status: employed 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 1. Little interest or pleasure in doing things: not at all 2. Feeling down, depressed, or hopeless: not at all 3. Trouble falling or staying asleep, or sleeping too much: not at all 4. Feeling tired or having little energy: not at all 5. Poor appetite or overeating: not at all 6. Feeling bad about yourself - or that you are a failure or have let yourself or your family down: not at all 7. Trouble concentrating on things, such as reading the newspaper or watching television: not at all 8. Moving or speaking so slowly that other people could have noticed. Or the opposite - being so fidgety or restless that you have been moving around a lot more than usual: not at all 9. Thoughts that you would be better off or of hurting yourself in some way: not at all Total score: 0 Depression Screening Interpretation: Negative Depression Screening Done: Yes 34151 - PHQ-9 Billing: Yes Source: Developed by Drs. Jordi Dominguez, Amy Alatorre, Torres Godinez and colleagues, with an educational tuan from [employer]. Thrive Questionnaire Date Thrive assessed: 09/22/24 I am a: Patient What is your living situation today?: I have a steady place to live Within the past 12 months, did the food you bought not last and you didn't have the money to get more?: Never true Within the past 12 months, did you worry whether your food would run out before you got money to buy more?: Never true Do you have trouble paying for medicines?: No Do you have trouble getting transportation to medical appointments?: No Do you have trouble paying your heating and electricity bill?: No Do you have trouble taking care of your child, family member or friend?: No Do you have trouble with day-to-day activities such as bathing, preparing meals, shopping, managing finances, etc.?: No Are you currently unemployed and looking for a job?: No Are you interested in more education?: No Please select the resources that you would like help with: None Currently or been in a relationship where the following occur: No concerns reported THRIVE Score: 0 AUDIT C Alcohol Use Questionnaire (AUDIT-C) 1. How often do you have a drink containing alcohol?: Monthly or less 2. How many drinks containing alcohol do you have on a typical day when you are drinking?: 1 or 2 3. How often do you have six or more drinks on one occasion?: Never Total Score: 1 RODO-7 AMB Questionnaire RODO-7 Date RODO - 7 assessed: 09/22/24 Feeling nervous, anxious, or on edge: 0 = Not at all Not being able to stop or control worryin = Not at all Worrying too much about different things: 0 = Not at all Trouble relaxin = Not at all Being so restless that it is hard to sit still: 0 = Not at all Becoming easily annoyed or irritable: 0 = Not at all Feeling afraid as if something awful might happen: 0 = Not at all Total RODO-7 score (0-4 normal; 5-9 mild; 10-14 moderate; 15-21 severe): 0 Source: Developed by Drs. Jordi Dominguez, Amy Alatorre, Torres Godinez and colleagues, with an educational tuan from [employer]. RODO-7 Assessment Billing RODO-7 Assessment Tool: RODO-7 Assessment 64235 Review of Systems Const Details: Const Denies chills, Denies fatigue, Denies fever(s), Denies headache(s) and Denies weakness ENT Denies dizziness and Denies headache(s) Card Denies chest pain, Denies lightheadedness, Denies dyspnea and Denies other (Palpitations) Resp Denies cough, Denies dyspnea, Denies wheezing and Denies other ( shortness of breath) GI Denies abdominal pain, Denies melena, Denies hematochezia, Denies change in bowel habits, Denies dyspepsia and Denies nausea Reports as per HPI Musc Denies abnormal gait, Denies myalgias, Denies arthralgias, Denies numbness and Denies tingling Skin/Breast Denies rash, Denies unusual bruising and Denies wounds Neuro Denies abnormal gait, Denies dizziness, Denies headache(s), Denies memory loss, Denies numbness, Denies Sensory deficit (Neuro), Denies tingling and Denies weakness Psych Denies anxiety, Denies depression, Denies memory loss Endo Denies cold intolerance, Denies fatigue, Denies heat intolerance, Denies polydipsia and Denies polyuria Aller/Immun Denies wheezing Physical exam (Primary Care) Vital Signs: Last Vital Signs Temp 97.6 F 09/22/24 13:49 Pulse 94 09/22/24 13:49 Resp 18 09/22/24 13:49 BP 126/86 09/22/24 13:49 Pulse Ox 96 09/22/24 13:49 Oxygen Delivery Method Room Air 09/22/24 13:49 BMI result Body Mass Index 52.5 Tobacco/Smoking Status: Tobacco use Status Tobacco use date assessed 07/19/24 09/22/24 13:49 Patient Tobacco Use Status Former Tobacco user 09/22/24 13:55 e-Cigarette/Vaping Use Never Used 09/22/24 13:55 PHQ-9: PHQ-9 Score PHQ-9: Total score 0 09/22/24 13:55 Depression Screening Interpretation: Negative Thrive Assessment: Date of Thrive Assessment Date Thrive assessed 09/22/24 09/22/24 13:55 Currently or been in a relationship where the following occur: No concerns reported Const Other: General: no acute distress and well developed Nutritional Appearance: well nourished Orientation/consciousness: patient oriented x3 HENMT Head: Yes normocephalic and Yes atraumatic Eyes General: appearance normal, both eyes and all related structures Pupils: Equal, round and reactive pupils present EOM: EOMs intact bilaterally Resp Effort & Inspection: normal respiratory effort Auscultation: clear to auscultation bilaterally Cardio Rate: regular rate Rhythm: regular rhythm Heart sounds: S1 normal heart sound present, S2 normal heart sound present, no gallops, no murmurs and no rubs GI Palpation (GI): No Abdominal aortic bruit present, Soft to palpation, nontender, No hepatosplenomegaly present and No Rebound tenderness present Auscultation: normal bowel sounds Uncircumcised male. Moist, irritated foreskin with minimal white discharge noted on the for skin of the penis. No erythema or edema. No scrotum invol vement. Back/Spine/Pelvis Back: no CVA tenderness Cervical Spine: cervical ROM normal and No Cervical spine tenderness Thoracic/Lumbar Spine: thoraco-lumbar ROM normal, No pain with thoraco-lumbar ROM, No thoracic spinal tenderness and No lumbar spinal tenderness Extrem General: Yes normal to inspection, No edema and No calf tenderness Skin General: warm and dry. Normal skin color. Normal skin turgor Lesions: no lesions Rashes: no rashes Trauma: no lacerations or abrasions Wounds: no wounds Nails: normal Neuro General: patient oriented x3, gait normal and no focal neuro deficit Cranial nerves: Yes Equal, round and reactive pupils present Cognition (Neuro): normal cognition Gait exam (Neuro): Normal gait present Sensory Exam: No Sensory deficit (Neuro) Psych Appearance: grossly normal Affect: normal affect Attitude: cooperative Thought process: Normal thought process present Coding Level of Care Code Est Pt Level 3 (19228) Diagnoses Candidiasis of penis B37.42 Additional Codes RODO-7 Assessment Billing - RODO-7 Assessment Tool: RODO-7 Assessment 45895 ([id number]) PHQ-9 - 63071 - PHQ-9 Billing: Yes ([id number]) Assessment & Plan Assessment & Plan (1) Candidiasis of penis: Code(s): B37.42 - Candidal balanitis Category: Medical Plan: Pt presents with complaints of itching, burning pain, red and white discharged to the foreskin of his penis for the past 3 days. Signs and symptoms have progressively worsened. Uncircumcised male. Moist, irritated foreskin with minimal white discharge noted on the for skin of the penis. No erythema or edema. No scrotum involvement. Fluconazole ordered; advised to take as prescribed. Instructed on the risks, benefits, and potential adverse reactions of the medication. Will check urinalysis for UTI. Encouraged to keep the affected skin clean and dry at all times. Follow-up with worsening or new symptoms. Verbalized understanding and agreed with treatment plan. Orders: Orders UA CC w/rflx Micro + Cult Today B37.42 - Candidal balanitis Medications: New fluconazole Take 150 mg x 1, may repeat in 72 hours. 150 mg PO Q3D 2 tabs 0RF
[2024-09-22 13:49] VITALS: BP 126/86; PULSE 94; RESP 18; TEMP 36.4; O2SAT 96; BMI 52.5
== END 2024-09-22 14:31 | disposition home or self-care (01) ==
PROVIDERS: PCP Nurse Practitioner Family; Visit Provider Nurse Practitioner Family
DX: B37.42 Candidal balanitis (principal)

== ENCOUNTER → 2024-09-22 13:34 | Outpatient (BNVA) | payer OTHER, MEDICAID, SELFPAY | PROVIDERS: PCP Nurse Practitioner Family; Visit Provider Nurse Practitioner Family | DX: B37.42 Candidal balanitis (principal) | CPT/HCPCS: 96127 ==

== ENCOUNTER 2024-09-22 14:35 | Outpatient (REF) | payer OTHER, MEDICAID, SELFPAY ==
--- OUTSIDE RECORDS SUMMARY | 2024-09-22 14:37 | XMS_ITS | Clinical Summary ---
Author Organization [facility] Address [address] [place] [address] Care Team Providers Care Conservation Officer Name Role Phone Jong Olivia MD Primary [...] TUBES 6 or 7 yrs old PROCEDURE: CA TONSILLECTOMY & ADENOIDECTOMY <AGE 14 APPENDECTOMY 12/22/2014 PROCEDURE: LAPAROSCOPIC APPENDECTOMY; COMMENT: Dr Ajay Hoyos INCISIONAL HERNIA REPAIR 01/21/2021 N/A PROCEDURE: CA IMPLANT MESH OPN HERNIA RPR/DEBRIDEMENT CLOSURE; COMMENT: laparoscopic repair of incisional hernia with mesh - Dr. Jv Thompson [facility] Medical History Medical History Date Comments [...] mellitus), t ype 2 with renal complications ([facility]) Microalbuminuria 05/15/2022 DX:Microalbumin uria Family History Medical [...] 2:15 PM EDT Office Visit Pulmonolgy - [place] [address] [facility] [address] [place] [phone] Karyna Garvin MD [address] [address] Health Maintenance Due Date Last Done Comments [...] (05/15/2022) Annual BMP Blood Test Abstracted Result [facility] Provider HEALTH MAINTENANCE Final Result * Hemoglobin A1c (05/15/2022) [facility] Hemoglobin A1C 6.2 <=6.5 % Blood Venous blood specimen / Unknown Result [facility] Provider LAB BLOOD ORDERABLES Shazia l Result * (ABNORMAL) Lipid panel (05/15/2022) [facility] LDL/HDL Ratio 5(A) 0 - 4 Triglycerides 109 0 - 150 mg/dL Cholesterol 187 0 - 200 mg/dL HDL 36(A) >=40 mg/dL LDL Cholesterol 130(A) 0 - 100 mg/dL Blood Venous blood specimen / Unknown Result [facility] Provider LAB BLOOD ORDERABLES Shazia l Result * Colonoscopy (04/11/2020) [facility] Colonoscopy Abstracted, no interpretation Anatomical Region Laterality Modality Other Result [facility] Provider HEALTH MAINTENANCE Final Result * Hepatitis C Screening (01/23/2016) [facility] Hepatitis C Screening Abstracted Result [facility] Provider HEALTH MAINTENANCE Final Result from Last 3 Months or Most Recently Relevant to Health Maintenance Care Teams Conservation Officer Relationship Specialty Start Date End Date Jong Olivia MD [address] [place] [address] PCP - General 07/08/22
[2024-09-22 17:59] LABS: Appearance Urine Turbid; Color Urine Yellow; Glucose Urine UA >=1000 mg/dL (Negative); Leukocyte Esterase Urine Trace (Negative); Nitrite Urine Negative (Negative); PH 5.5 (5.0-9.0); Specific Gravity - Urine >= 1.030 (1.005-1.025); UMIC TRIGGER UACC YES; Urine Blood Trace (Negative); Urine Ketones 15 mg/dL (Negative); Urine Protein 30 (1+) mg/dL (Neg-Trace)
[2024-09-22 18:19] LABS: Bacteria Urine Trace (None Seen); Hyaline Casts Urine 0-2 /LPF (0-2); RBC Urine 0-2 /HPF (0-2); UACC Culture Trigger YES
== END 2024-09-22 14:36 | disposition home or self-care (01) ==
LOC: HO.WFDLDS 14:35
PROVIDERS: Visit Provider Nurse Practitioner Family
DX: B37.42 Candidal balanitis (principal)
CPT/HCPCS: 81001; 87086; 87088

== ENCOUNTER 2024-10-02 14:02 | Outpatient (AMB) | payer OTHER, MEDICAID, SELFPAY ==
[2024-10-02 14:10] VITALS: BP 110/84; PULSE 102; O2SAT 97; BMI 52.1
--- NOTE | 2024-10-02 14:10 | HO.NEPHOV ---
Vital Signs 10/02/24 14:10 Height 6 ft Weight 384 lb BMI 52.1 BP 110/84 Blood Pressure Location Lt brachial Position Sitting Pulse 102 H Pulse Source Pulse Oximeter Pulse Oximetry (%) 97 Oxygen Delivery Method Room Air Intake Visit Reasons: Resistant Hypertension Artificial Stone Applicator Required: No Accompanied by: Self / Same As Patient Allergies grass pollen Allergy (Mild, Verified 10/02/24 14:11) Itchy Eyes Medication List - Last Reconciled 10/02/24 by Sanford Logan MD amlodipine 10 mg PO DAILY aspirin 81 mg PO DAILY atorvastatin 20 mg PO BEDTIME 30 days azathioprine 150 mg PO DAILY fluconazole 150 mg PO Q3D 2 doses losartan-hydrochlorothiazide 100-25 mg 1 tab PO DAILY 90 days metformin ER 500 mg PO BID 90 days metoprolol tartrate 50 mg PO DAILY 30 days miscellaneous medical supply 1 XL BP cuff and monitor omeprazole 20 mg PO DAILY spironolactone 25 mg PO DAILY HPI Comments Details: RODNEY IS A PLEASANT 43-YEAR-OLD MAN WITH A HISTORY OF CROHN'S DISEASE AND OBESITY. HE WAS STARTED ON ANTIHYPERTENSIVE MEDICATIONS ABOUT A YEAR AGO. CURRENTLY HE IS ON 3 ANTIHYPERTENSIVE MEDICATIONS. 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 THIS WAS ESSENTIALLY UNCHANGED FROM THE IMAGING DONE IN 2019. HE IS REFERRED FOR FURTHER EVALUATION OF HYPERTENSION. 06/06/24 ;Underwent 24 hour ABP M 10/02/24 OVerall doing well Lost more weight PFSH Medical History Trejo esophagus Hx of Crohn's disease High cholesterol High blood pressure Sinusitis Asthma Surgical History Hx of appendectomy H/O hernia repair Hx of tonsillectomy Family History Mother High blood pressure High cholesterol Diabetes Skin cancer Father High blood pressure Skin cancer Maternal Grandmother Diabetes Social History Housing: Other Alcohol intake: current Patient Tobacco Use Status: Former Tobacco user e-Cigarette/Vaping Use: Never Used Second Hand Smoke Exposure: No service: No Current occupational status: employed 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 Cognitive needs: No Hearing needs: No Vision needs: No Physical Exam Vital Signs: Last Vital Signs Pulse 102 H 10/02/24 14:10 BP 110/84 10/02/24 14:10 Pulse Ox 97 10/02/24 14:10 Oxygen Delivery Method Room Air 10/02/24 14:10 BMI result Body Mass Index 52.1 Results Reviewed Nephrology Results: Sodium 142 mmol/L (135-145) 08/03/24 Potassium 4.0 mmol/L (3.3-5.1) 08/03/24 Chloride 108 mmol/L (96-108) 08/03/24 Carbon Dioxide 27 mmol/L (22-29) 08/03/24 BUN 15 mg/dL (9-16) 08/03/24 Creatinine 0.79 mg/dL (0.5-1.4) 08/03/24 Calcium 8.9 mg/dL (8.4-10.2) 08/03/24 Urine Protein 30 (1+) mg/dL (Neg-Trace) H 09/22/24 Assessment & Plan Assessment & Plan (1) High blood pressure: Code(s): I10 - Essential (primary) hypertension Category: Medical Qualifiers: Hypertension type: primary hypertension Qualified Code(s): I10 - Essential (primary) hypertension (2) Renal artery aneurysm: Code(s): I72.2 - Aneurysm of renal artery Category: Medical (3) Sleep apnea: Code(s): G47.30 - Sleep apnea, unspecified Category: Medical (4) Morbid obesity with BMI of 50.0-59.9, adult: Code(s): E66.01 - Morbid (severe) obesity due to excess calories; Z68.43 - Body mass index [BMI] 50.0-59.9, adult Category: Medical Plan . RODNEY HAS RESISTANT HYPERTENSION IN THE SETTING OF OBESITY OBSTRUCTIVE SLEEP APNEA AND RENAL ARTERY ANEURYSM. RENAL ARTERY ANEURYSM measures 9 mm based on recent CT scan done in 2023. This was reportedly unchanged compared to the CT scan in 2019. Continue to monitor aneurysm Refer to vascular surgeon if size increases. Keep aspirin 80 mg once a day. Resistant hypertension with a combination of above. He needs weight loss. You should continue using CPAP. Based on a 24 hour ABP M , Keep spironolactone 25 mg daily. Follow renal panel with potassium Medications: Refilled metoprolol tartrate 50 mg PO DAILY 30 days 90 tabs 1RF Coding Level of Care Code Est Pt Level 4 (44435) Diagnoses Primary hypertension I10 Hypertension type: primary hypertension Renal artery aneurysm I72.2 Sleep apnea G47.30 Morbid obesity with BMI of 50.0-59.9, adult E66.01; Z68.43
--- OUTSIDE RECORDS SUMMARY | 2024-10-02 16:09 | XMS_ITS | Encounter Summary ---
Author Organization [facility] Address [address] [place] [address] Care Team Providers Care Member Certification Manager Name Role Phone Soni Metz MD Primary Care Provider Moise [place] Primary Care Provider [phone] Jong Olivia MD Primary Care Provider Encounter Details Date Type Department Care Team Description 02/07/2013 Photographic Aide Report Medical Records [address] [place] [address] Hebert Reece MD Social History Tobacco Use Types Packs/Day [...] on filedocumented in this encounter Care Teams Member Certification Manager Relationship Specialty Start Date End Date Soni Metz MD PCP - General 07/01/10 02/02/22 Moise Ponce [address] [place] [id number] PCP - General Internal Medicine 02/03/22 07/07/22 Jong Olivia MD [address] [place] [address] PCP - General Internal Medicine 07/08/22 documented as of this encounter
--- OUTSIDE RECORDS SUMMARY | 2024-10-02 16:09 | XMS_ITS | Clinical Summary ---
Author Organization [facility] Address [address] [place] [address] Care Team Providers Care Product Marketing Consultant Name Role Phone Jong Olivia MD Primary [...] TUBES 8 or 9 yrs old PROCEDURE: [place] TONSILLECTOMY & ADENOIDECTOMY <AGE 14 APPENDECTOMY 12/22/2014 PROCEDURE: LAPAROSCOPIC APPENDECTOMY; COMMENT: Dr Ajay Hoyos INCISIONAL HERNIA REPAIR 01/21/2021 N/A PROCEDURE: SD IMPLANT MESH OPN HERNIA RPR/DEBRIDEMENT CLOSURE; COMMENT: laparoscopic repair of incisional hernia with mesh - Dr. Jv Thompson [facility] Medical History Medical History Date Comments [...] mellitus), t ype 2 with renal complications ([facility]) Microalbuminuria 05/15/2022 DX:Microalbumin uria Family History Medical [...] 2:15 PM EDT Office Visit Pulmonolgy - [place] [address] [facility] [address] [place] [phone] Karyna Garvin MD [address] [address] Health Maintenance Due Date Last Done Comments [...] (05/15/2022) Annual BMP Blood Test Abstracted Result [facility] Provider HEALTH MAINTENANCE Final Result * Hemoglobin A1c (05/15/2022) [facility] Hemoglobin A1C 6.2 <=6.5 % Blood Venous blood specimen / Unknown Result [facility] Provider LAB BLOOD ORDERABLES Shazia l Result * (ABNORMAL) Lipid panel (05/15/2022) [facility] LDL/HDL Ratio 5(A) 0 - 4 Triglycerides 109 0 - 150 mg/dL Cholesterol 187 0 - 200 mg/dL HDL 36(A) >=40 mg/dL LDL Cholesterol 130(A) 0 - 100 mg/dL Blood Venous blood specimen / Unknown Result [facility] Provider LAB BLOOD ORDERABLES Shazia l Result * Colonoscopy (04/11/2020) [facility] Colonoscopy Abstracted, no interpretation Anatomical Region Laterality Modality Other Result [facility] Provider HEALTH MAINTENANCE Final Result * Hepatitis C Screening (01/23/2016) [facility] Hepatitis C Screening Abstracted Result [facility] Provider HEALTH MAINTENANCE Final Result from Last 3 Months or Most Recently Relevant to Health Maintenance Care Teams Product Marketing Consultant Relationship Specialty Start Date End Date Jong Olivia MD [address] [place] [address] PCP - General 07/08/22
--- OUTSIDE RECORDS SUMMARY | 2024-10-02 16:09 | XMS_ITS | Encounter Summary ---
Author Organization [facility] Address [address] [place] [address] Care Team Providers Care Bow String Maker Name Role Phone Moise Ponce Primary Care Provider [phone] Jong Olivia MD Primary Care Provider Encounter Details Date Type Department Care Team Description 04/27/2022 Refill Adult Medicine [address] [address] Soni Metz MD Social History Tobacco Use [...] on filedocumented in this encounter Care Teams Bow String Maker Relationship Specialty Start Date End Date Moise Ponce [address] [place] [phone] PCP - General Internal Medicine 02/03/22 07/07/22 Jong Olivia MD [address] [place] [id number] PCP - General Internal Medicine 07/08/22 documented as of this encounter
--- OUTSIDE RECORDS SUMMARY | 2024-10-02 16:09 | XMS_ITS | Encounter Summary ---
Author Organization [facility] Address [address] [place] [address] Care Team Providers Care Retread Operator Name Role Phone Soni Metz MD Primary Care Provider Moise Madison Primary Care Provider [phone] Jong Olivia MD Primary Care Provider Encounter Details Date Type Department Care Team Description 09/09/2017 Shipping Supervisor Report Medical Records [address] [place] [address] Prasadrichaprincess [place] [address] [place] [address], [address] [address] Social History Tobacco Use Types Packs/Day Years [...] on filedocumented in this encounter Care Teams Retread Operator Relationship Specialty Start Date End Date Soni Metz MD PCP - General 07/01/10 02/02/22 Moise Ponce [address] [place] [address] PCP - General Internal Medicine 02/03/22 07/07/22 Jong Olivia MD [address] [place] [id number] PCP - General Internal Medicine 07/08/22 documented as of this encounter
--- OUTSIDE RECORDS SUMMARY | 2024-10-02 16:09 | XMS_ITS | Encounter Summary ---
Author Organization [facility] Address [address] [place] [address] Care Team Providers Care Insurance Service Representative Name Role Phone Soni Metz MD Primary Care Provider Moise Madison Primary Care Provider [phone] Jong Olivia MD Primary Care Provider Encounter Details Date Type Department Care Team Description 12/22/2014 Hospital Medical Records [address] [place] [address] Shae Moss MD [address] [place] [address] [address] [place], [place] [phone] Social History Tobacco Use Types Packs/Day Years [...] on filedocumented in this encounter Care Teams Insurance Service Representative Relationship Specialty Start Date End Date Soni Metz MD PCP - General 07/01/10 02/02/22 Moise Ponce [address] [place] [address] PCP - General Internal Medicine 02/03/22 07/07/22 Jong Olivia MD [address] [place] [address] PCP - General Internal Medicine 07/08/22 documented as of this encounter
--- OUTSIDE RECORDS SUMMARY | 2024-10-02 16:09 | XMS_ITS | Encounter Summary ---
Author Organization [facility] Address [address] [place] [address] Care Team Providers Care Musician Instrumental Name Role Phone Soni Metz MD Primary Care Provider Moise Madison Primary Care Provider [phone] Jong Olivia MD Primary Care Provider Encounter Details Date Type Department Care Team Description 12/24/2014 Hospital Medical Records [address] [place] [address] Shae Moss MD [address] [place] [address] [address] [place], [place] [id number] Social History Tobacco Use Types Packs/Day Years [...] on filedocumented in this encounter Care Teams Musician Instrumental Relationship Specialty Start Date End Date Soni Metz MD PCP - General 07/01/10 02/02/22 Moise Ponce [address] [place] [address] PCP - General Internal Medicine 02/03/22 07/07/22 Jong Olivia MD [address] [place] [address] PCP - General Internal Medicine 07/08/22 documented as of this encounter
--- OUTSIDE RECORDS SUMMARY | 2024-10-02 16:09 | XMS_ITS | Encounter Summary ---
Author Organization [facility] Address [address] [place] [address] Care Team Providers Care Printed Circuit Photographer Name Role Phone Soni Metz MD Primary Care Provider Moise [place] Primary Care Provider [phone] Jong Olivia MD Primary Care Provider Encounter Details Date Type Department Care Team Description 11/18/2015 Orders Only Medical Records [address] [place] [address] Le Marrero PA-C Social History Tobacco Use [...] on filedocumented in this encounter Care Teams Printed Circuit Photographer Relationship Specialty Start Date End Date Soni Metz MD PCP - General 07/01/10 02/02/22 Moise Ponce [address] [place] [address] PCP - General Internal Medicine 02/03/22 07/07/22 Jong Olivia MD [address] [place] [address] PCP - General Internal Medicine 07/08/22 documented as of this encounter
--- OUTSIDE RECORDS SUMMARY | 2024-10-02 16:09 | XMS_ITS | Encounter Summary ---
Author Organization [facility] Address [address] [place] [address] Care Team Providers Care Switchbox Assembler Name Role Phone Soni Metz MD Primary Care Provider Moise [place] Primary Care Provider [phone] Jong Olivia MD Primary Care Provider Reason for Visit * Reason Onset Date Comments Sleep Apnea 05/22/2020 Provider Call Back 05/22/2020 Encounter Details Date Type Department Care Team Description 05/22/2020 Telephone Pulmonology - [place] 175 [facility] [address] [place] [address] Jennifer Shaffer [facility] [address] [place] [address] Sleep Apnea; Provider Call Back Social History [...] on filedocumented in this encounter Care Teams Switchbox Assembler Relationship Specialty Start Date End Date Soni Metz MD PCP - General 07/01/10 02/02/22 Moise Ponce [address] [place] [address] PCP - General Internal Medicine 02/03/22 07/07/22 Jong Olivia MD [address] [place] [address] PCP - General Internal Medicine 07/08/22 documented as of this encounter
--- OUTSIDE RECORDS SUMMARY | 2024-10-02 16:09 | XMS_ITS | Encounter Summary ---
Author Organization [facility] Address [address] [place] [address] Care Team Providers Care Church Secretary Name Role Phone Soni Metz MD Primary Care Provider Moise [place] Primary Care Provider [phone] Jong Olivia MD Primary Care Provider Encounter Details Date Type Department Care Team Description 10/14/2020 Telephone Adult Medicine [address] [address] Soni Metz MD Social History Tobacco Use [...] on filedocumented in this encounter Care Teams Church Secretary Relationship Specialty Start Date End Date Soni Metz MD PCP - General 07/01/10 02/02/22 Moise Ponce [address] [place] [address] PCP - General Internal Medicine 02/03/22 07/07/22 Jong Olivia MD [address] [place] [address] PCP - General Internal Medicine 07/08/22 documented as of this encounter
--- OUTSIDE RECORDS SUMMARY | 2024-10-02 16:09 | XMS_ITS | Encounter Summary ---
Author Organization [facility] Address [address] [place] [address] Care Team Providers Care Network Internship Name Role Phone Soni Metz MD Primary Care Provider Moise [place] Primary Care Provider [phone] Jong Olivia MD Primary Care Provider Reason for Referral * Non LYNDA (Routine) - Authorized/Booked Specialty Diagnoses / Procedures Referred By Contac t Referred To Contact Pulmonology Procedures REFERRAL TO PULMONOLOGY Soni Metz MD [address] [place] [address] Pulmo/Spfld 175 175 [facility] [address] [place] [phone] Referral ID Status Reason Start Date Expiration Date V isits Requested Visits Authorized [id number] Authorized/B ooked 08/04/2021 08/04/2022 1 1 Encounter Details Date Type Department Care Team Description 07/31/2021 Pt. Non Urgent Medic al Question Medicine/Pediatrics - [place] [address] [place] [phone] Soni Metz MD Social History Tobacco Use [...] on filedocumented in this encounter Care Teams Network Internship Relationship Specialty Start Date End Date Soni Metz MD PCP - General 07/01/10 02/02/22 Moise Ponce [address] [place] [address] PCP - General Internal Medicine 02/03/22 07/07/22 Jong Olivia MD [address] [place] [address] PCP - General Internal Medicine 07/08/22 documented as of this encounter
--- OUTSIDE RECORDS SUMMARY | 2024-10-02 16:09 | XMS_ITS | Encounter Summary ---
Author Organization [facility] Address [address] [place] [address] Care Team Providers Care Thermo Processor Name Role Phone Moise Prather Primary Care Provider [phone] Jong Olivia MD Primary Care Provider Reason for Visit * Reason Comments E-prescribe Rx Request Encounter Details Date Type Department Care Team Description 04/24/2022 Refill Medicine/Pediatrics - [address] [address] Ally Grimes PA-C E-prescribe Rx Request Social History Tobacco Use Types Packs/Day Years [...] Telephone Encounter - Skye Grimes M.A. - 04/24/2022 2:43 PM EDT Last office visit 10/24/21 Next office visit 06/16/22 with new PCP * Telephone Encounter - Moo Fagan - 04/24/2022 2:26 PM EDT Patient would like script to be: E-PRESCRIBED/FAXED TO PHARMACY ?? WHEN WAS THE PATIENT'S LAST APPOINTMENT IN ADULT MEDICINE? 10/24/21 ?? WHEN WAS THE LAST TIME THE PATIENT SAW THEIR PCP? Hasnt seen dr prather yet, will at upcoming appt ?? Does patient have an upcoming appointment? Yes 06/16/22 ?? (THE MEDICATION REQUESTED IS ON THE MED LIST ABOVE) All of the medications requested were on the CURRENT MEDS list ?? Did you check the Pharmacy information above?: YES ?? Patient wants: 90 -day supply ?? Is this a mail order prescription request ? NO ?? If the refill is from a FAXED refill request what is the RX # listed on the fax? N/A ?? Patients current insurance carrier is: Payor: [employer] [place] / Plan: ClctinO $25 [place] 1 / Product Type: HMO [id number] ?? documented in this encounter Plan of Treatment Not on file documented as of this encounter Visit Diagnoses Not on filedocumented in this encounter Care Teams Thermo Processor Relationship Specialty Start Date End Date Moise Prather [address] [place], [place] [phone] PCP - General Internal Medicine 02/03/22 07/07/22 Jong Olivia MD [address] [place], [place] [phone] PCP - General Internal Medicine 07/08/22 documented as of this encounter
--- OUTSIDE RECORDS SUMMARY | 2024-10-02 16:09 | XMS_ITS | Encounter Summary ---
Author Organization [facility] Address [address] [place] [address] Care Team Providers Care Palliative Care Nurse Name Role Phone Soni Metz MD Primary Care Provider Moise [place] Primary Care Provider [phone] Jong Olivia MD Primary Care Provider Reason for Visit * Reason Onset Date Comments Radio Repair Teacher Feedback 08/07/2021 Pulmonology (Sle ep Study) Encounter Details Date Type Department Care Team Description 08/07/2021 Telephone Medicine/Pediatrics - [address] [phone] Soni Metz MD Radio Repair Teacher Feedback (Pulmonology (Sleep Study)) Social History Tobacco [...] Primary documented in this encounter Care Teams Palliative Care Nurse Relationship Specialty Start Date End Date Soni Metz MD PCP - General 07/01/10 02/02/22 Moise Ponce [address] [place] [address] PCP - General Internal Medicine 02/03/22 07/07/22 Jong Olivia MD [address] [place] [address] PCP - General Internal Medicine 07/08/22 documented as of this encounter
--- OUTSIDE RECORDS SUMMARY | 2024-10-02 16:09 | XMS_ITS | Encounter Summary ---
Author Organization [facility] Address [address] [place] [address] Care Team Providers Care Price Analyst Name Role Phone Soni Metz MD Primary Care Provider Moise [place] Primary Care Provider [phone] Jong Olivia MD Primary Care Provider Reason for Visit * Reason Onset Date Comments Call From Pharmacy 07/12/2015 Encounter Details Date Type Department Care Team Description 07/12/2015 Telephone Medicine/Pediatrics - [address] [phone] Soni Metz MD Call From Pharmacy Social History Tobacco Use Types Packs/Day Years [...] Miscellaneous Notes * Telephone Encounter - Mariam Burger L.P.N. - 07/12/2015 10:52 AM EST Busy * Telephone Encounter - Sandra Ann - 07/12/2015 10:43 AM EST Dextromethorphan-Guaifenesin 15-25 MG/5ML Liquid Pharmacy calling for more clarification on the dosing of this medication for this patient, please call [facility] on [facility] [place] to clarify. documented in this encounter Plan of Treatment Not on file documented as of this encounter Visit Diagnoses Not on filedocumented in this encounter Care Teams Price Analyst Relationship Specialty Start Date End Date Soni Metz MD PCP - General 07/01/10 02/02/22 Moise Ponce [address] [place] [address] PCP - General Internal Medicine 02/03/22 07/07/22 Jong Olivia MD [address] [place] [address] PCP - General Internal Medicine 07/08/22 documented as of this encounter
--- OUTSIDE RECORDS SUMMARY | 2024-10-02 16:09 | XMS_ITS | Encounter Summary ---
Author Organization [facility] Address [address] [place] [address] Care Team Providers Care Pump Assembler Name Role Phone Soni Metz MD Primary Care Provider Moise [place] Primary Care Provider [phone] Jong Olivia MD Primary Care Provider Encounter Details Date Type Department Care Team Description 11/03/2019 Telephone Medicine/Pediatrics - [address] [phone] Soni Metz MD Social History Tobacco Use [...] on filedocumented in this encounter Care Teams Pump Assembler Relationship Specialty Start Date End Date Soni Metz MD PCP - General 07/01/10 02/02/22 Moise Ponce [address] [place] [address] PCP - General Internal Medicine 02/03/22 07/07/22 Jong Olivia MD [address] [place] [address] [place] [address] PCP - General Internal Medicine 07/08/22 documented as of this encounter
== END 2024-10-02 14:24 | disposition home or self-care (01) ==
PROVIDERS: PCP Nurse Practitioner Family; Visit Provider Internal Medicine Hypertension Specialist
DX: I10 Essential (primary) hypertension (principal); I72.2 Aneurysm of renal artery; G47.30 Sleep apnea, unspecified; E66.01 Morbid (severe) obesity due to excess calories; Z68.43 Body mass index [BMI] 50.0-59.9, adult
CPT/HCPCS: 99214

== ENCOUNTER → 2024-10-02 14:02 | Outpatient (BNVA) | payer OTHER, MEDICAID, SELFPAY | PROVIDERS: PCP Nurse Practitioner Family; Visit Provider Internal Medicine Hypertension Specialist ==

== ENCOUNTER 2024-10-05 10:30 | Outpatient (REF) | payer OTHER, MEDICAID, SELFPAY ==
[2024-10-05 10:48] LABS: MANUAL DIFF FLAG NO
--- OUTSIDE RECORDS SUMMARY | 2024-10-05 12:23 | XMS_ITS | Encounter Summary ---
Author Organization [facility] Address [address] [place] [address] Care Team Providers Care Home Health Scheduler Name Role Phone Soni Metz MD Primary Care Provider Moise [place] Primary Care Provider [phone] Jong Olivia MD Primary Care Provider Encounter Details Date Type Department Care Team Description 03/11/2016 Furnace Setter Report Medical Records [address] [place] [address] Miah Siddiqi Np Social History Tobacco Use [...] on filedocumented in this encounter Care Teams Home Health Scheduler Relationship Specialty Start Date End Date Soni Metz MD PCP - General 07/01/10 02/02/22 Moise Ponce [address] [place] [address] [phone] PCP - General Internal Medicine 02/03/22 07/07/22 Jong Olivia MD [address] [place] [address] [phone] PCP - General Internal Medicine 07/08/22 documented as of this encounter
--- OUTSIDE RECORDS SUMMARY | 2024-10-05 12:23 | XMS_ITS | Encounter Summary ---
Author Organization [facility] Address [address] [place] [address] Care Team Providers Care Form Grader Operator Name Role Phone Soni Metz MD Primary Care Provider Moise [place] Primary Care Provider Jong Olivia MD Primary Care Provider Encounter Details Date Type Department Care Team Description 10/14/2020 Telephone Adult Medicine [address] [address] Soni Metz MD Social History Tobacco Use [...] on filedocumented in this encounter Care Teams Form Grader Operator Relationship Specialty Start Date End Date Soni Metz MD PCP - General 07/01/10 02/02/22 Moise Ponce [address] [place] [address] PCP - General Internal Medicine 02/03/22 07/07/22 Jong Olivia MD [address] [place] [address] PCP - General Internal Medicine 07/08/22 documented as of this encounter
--- OUTSIDE RECORDS SUMMARY | 2024-10-05 12:23 | XMS_ITS | Encounter Summary ---
Author Organization [facility] Address [address] [place] [address] Care Team Providers Care Director Industrial Relations Name Role Phone Soni Metz MD Primary Care Provider Moise [place] Primary Care Provider [phone] Jong Olivia MD Primary Care Provider Encounter Details Date Type Department Care Team Description 12/22/2014 Hospital Medical Records [address] [place] [address] Shae Moss MD [address] [place] [address] [address] [place], [place] [phone] Social History Tobacco Use Types Packs/Day Years [...] on filedocumented in this encounter Care Teams Director Industrial Relations Relationship Specialty Start Date End Date Soni Metz MD PCP - General 07/01/10 02/02/22 Moise Ponce [address] [place] [address] PCP - General Internal Medicine 02/03/22 07/07/22 Jong Olivia MD [address] [place] [address] PCP - General Internal Medicine 07/08/22 documented as of this encounter
--- OUTSIDE RECORDS SUMMARY | 2024-10-05 12:23 | XMS_ITS | Encounter Summary ---
Author Organization [facility] Address [address] [place] [address] Care Team Providers Care Aircraft Line Assembler Name Role Phone Soni Metz MD Primary Care Provider Moise [place] Primary Care Provider [phone] Jong Olivia MD Primary Care Provider Reason for Visit * Reason Onset Date Comments Sleep Apnea 05/22/2020 Provider Call Back 05/22/2020 Encounter Details Date Type Department Care Team Description 05/22/2020 Telephone Pulmonology - [place] [address] [facility] [address] [place] [address] Jennifer Shaffer [facility] [address] [place] [address] Sleep Apnea; Provider Call Back Social History [...] on filedocumented in this encounter Care Teams Aircraft Line Assembler Relationship Specialty Start Date End Date Soni Metz MD PCP - General 07/01/10 02/02/22 Moise Ponce [address] [place] [address] PCP - General Internal Medicine 02/03/22 07/07/22 Jong Olivia MD [address] [place] [address] PCP - General Internal Medicine 07/08/22 documented as of this encounter
--- OUTSIDE RECORDS SUMMARY | 2024-10-05 12:23 | XMS_ITS | Encounter Summary ---
Author Organization [facility] Address [address] [place] [address] Care Team Providers Care Ball Mill Mixer Name Role Phone Soni Metz MD Primary Care Provider Moise [place] Primary Care Provider [phone] Jong Olivia MD Primary Care Provider Encounter Details Date Type Department Care Team Description 02/07/2013 Box Puller Report Medical Records [address] [place] [address] Hebert Reece MD Social History Tobacco Use [...] on filedocumented in this encounter Care Teams Ball Mill Mixer Relationship Specialty Start Date End Date Soni Metz MD PCP - General 07/01/10 02/02/22 Moise Ponce [address] [place] [address] [phone] PCP - General Internal Medicine 02/03/22 07/07/22 Jong Olivia MD [address] [place] [address] PCP - General Internal Medicine 07/08/22 documented as of this encounter
--- OUTSIDE RECORDS SUMMARY | 2024-10-05 12:23 | XMS_ITS | Encounter Summary ---
Author Organization [facility] Address [address] [place] [address] Care Team Providers Care Ebay Reseller Name Role Phone Soni Metz MD Primary Care Provider Moise [place] Primary Care Provider [phone] Jong Olivia MD Primary Care Provider Encounter Details Date Type Department Care Team Description 11/18/2015 Orders Only Medical Records [address] [place] [address] Le Marrero PA-C Social History Tobacco Use [...] encounter Results * OUTSIDE SLEEP STUDY (11/12/2015) eL Marrero PA-C PULMONOLOGY documented in this encounter Visit Diagnoses Not on filedocumented in this encounter Care Teams Ebay Reseller Relationship Specialty Start Date End Date Soni Metz MD PCP - General 07/01/10 02/02/22 Moise Ponce [address] [place] [address] PCP - General Internal Medicine 02/03/22 07/07/22 Jong Olivia MD [address] [place] [address] PCP - General Internal Medicine 07/08/22 documented as of this encounter
--- OUTSIDE RECORDS SUMMARY | 2024-10-05 12:23 | XMS_ITS | Clinical Summary ---
Author Organization [facility] Address [address] [place] [address] Care Team Providers Care Solution Architect Name Role Phone Jong Olivia MD Primary [...] CANCER SCREENING 04/11/2025 04/11/2020, 2015 Care Teams Solution Architect Relationship Specialty Start Date End Date Jong Olivia MD [address] [place] [address] PCP - General Internal Medicine 07/08/22
--- OUTSIDE RECORDS SUMMARY | 2024-10-05 12:23 | XMS_ITS | Encounter Summary ---
Author Organization [facility] Address [address] [place] [address] Care Team Providers Care High School Guidance Counselor Name Role Phone Soni Metz MD Primary Care Provider Moise [place] Primary Care Provider [phone] Jong Olivia MD Primary Care Provider Encounter Details Date Type Department Care Team Description 01/24/2022 Pt. Non Urgent Medical Question Pulmonology - [place] 175 [facility] [address] [place] [phone] Jennifer Shaffer FNP [address] [place] [address] Social History Tobacco Use Types Packs/Day Years [...] encounter Miscellaneous Notes * Telephone Encounter - CELESTE Motta - 01/26/2022 8:07 AM EDTFrom: Joe Ramires To: Steven Shaffer Sent: 01/24/2022 3:40 PM EDT Subject: Received CPAP Machine Davon, I have finally received my CPAP machine as of 01/13/2022. It is workign well, but I will need an appointment any time after 02/12/2022 but before 90 days are up. Joe Ramires documented in this encounter Plan of Treatment Not on file documented as of this encounter Visit Diagnoses Not on filedocumented in this encounter Care Teams High School Guidance Counselor Relationship Specialty Start Date End Date Soni Metz MD PCP - General 07/01/10 02/02/22 Moise Ponce [address] [place] [address] PCP - General Internal Medicine 02/03/22 07/07/22 Jong Olivia MD [address] [place] [address] PCP - General Internal Medicine 07/08/22 documented as of this encounter
--- OUTSIDE RECORDS SUMMARY | 2024-10-05 12:23 | XMS_ITS | Encounter Summary ---
Author Organization [facility] Address [address] [place] [address] Care Team Providers Care Carpet Installer Helper Name Role Phone Soni Metz MD Primary Care Provider oMise [place] Primary Care Provider [phone] Jong Olivia MD Primary Care Provider Encounter Details Date Type Department Care Team Description 12/26/2015 Drop Wire Aliner Report Medical Records [address] [place] [address] Prasadrichaprincess Benjamin [address] [place] [address], [address] [place] [address] Social History Tobacco Use Types Packs/Day Years Used Date Smoking Tobacco: Former Cigarettes 0.5 1 0 08/09/1999 - 08/09/2012 Smokeless Tobacco: Never Comments:since age 29 quit [...] on filedocumented in this encounter Care Teams Carpet Installer Helper Relationship Specialty Start Date End Date Soni Metz MD PCP - General 07/01/10 02/02/22 Moise Ponce [address] [place] [address] PCP - General Internal Medicine 02/03/22 07/07/22 Jong Olivia MD [address] [place] [address] PCP - General Internal Medicine 07/08/22 documented as of this encounter
--- OUTSIDE RECORDS SUMMARY | 2024-10-05 12:23 | XMS_ITS | Encounter Summary ---
Author Organization [facility] Address [address] [place] [address] Care Team Providers Care Beer Cooler Name Role Phone Soni Metz MD Primary Care Provider Moise [place] Primary Care Provider [phone] Jong Olivia MD Primary Care Provider Encounter Details Date Type Department Care Team Description 01/21/2021 Hospital Medical Records [address] [place] [address] Jv Thompson MD [address] [place] [address] Social History Tobacco Use Types Packs/Day Years [...] on filedocumented in this encounter Care Teams Beer Cooler Relationship Specialty Start Date End Date Soni Metz MD PCP - General 07/01/10 02/02/22 Moise Ponce [address] [place] [address] PCP - General Internal Medicine 02/03/22 07/07/22 Jong Olivia MD [address] [place] [address] PCP - General Internal Medicine 07/08/22 documented as of this encounter
--- OUTSIDE RECORDS SUMMARY | 2024-10-05 12:23 | XMS_ITS | Clinical Summary ---
Author Organization [facility] Address [address] [place] [address] Care Team Providers Care Biological Technician Name Role Phone Jong Olivia MD Primary [...] TUBES 6 or 7 yrs old PROCEDURE: ID TONSILLECTOMY & ADENOIDECTOMY <AGE 12 APPENDECTOMY 12/22/2014 PROCEDURE: LAPAROSCOPIC APPENDECTOMY; COMMENT: Dr Ajay Hoyos INCISIONAL HERNIA REPAIR 01/21/2021 N/A PROCEDURE: ID IMPLANT MESH OPN HERNIA RPR/DEBRIDEMENT CLOSURE; COMMENT: laparoscopic repair of incisional hernia with mesh - Dr. Jv Thompson [facility] Medical History Medical History Date Comments [...] mellitus), t ype 2 with renal complications ([facility]) Microalbuminuria 05/15/2022 DX:Microalbumin uria Family History Medical [...] 2:15 PM EDT Office Visit Pulmonolgy - [place] 175 [facility] [address] [place] [phone] Karyna Garvin MD [address] [address] Health Maintenance Due Date Last Done Comments [...] (05/15/2022) Annual BMP Blood Test Abstracted Result [facility] Provider HEALTH MAINTENANCE Final Result * Hemoglobin A1c (05/15/2022) [facility] Hemoglobin A1C 6.2 <=6.5 % Blood Venous blood specimen / Unknown Result [facility] Provider LAB BLOOD ORDERABLES Shazia l Result * (ABNORMAL) Lipid panel (05/15/2022) [facility] LDL/HDL Ratio 5(A) 0 - 4 Triglycerides 109 0 - 150 mg/dL Cholesterol 187 0 - 200 mg/dL HDL 36(A) >=40 mg/dL LDL Cholesterol 130(A) 0 - 100 mg/dL Blood Venous blood specimen / Unknown Result [facility] Provider LAB BLOOD ORDERABLES Shazia l Result * Colonoscopy (04/11/2020) [facility] Colonoscopy Abstracted, no interpretation Anatomical Region Laterality Modality Other Result [facility] Provider HEALTH MAINTENANCE Final Result * Hepatitis C Screening (01/23/2016) [facility] Hepatitis C Screening Abstracted Result [facility] Provider HEALTH MAINTENANCE Final Result from Last 3 Months or Most Recently Relevant to Health Maintenance Care Teams Biological Technician Relationship Specialty Start Date End Date Jong Olivia MD [address] [place] [address] PCP - General 07/08/22
--- OUTSIDE RECORDS SUMMARY | 2024-10-05 12:23 | XMS_ITS | Encounter Summary ---
Author Organization [facility] Address [address] [place] [address] Care Team Providers Care Telecommunications Facility Examiner Name Role Phone Moise Ponce Primary Care Provider [phone] Jong Olivia MD Primary Care Provider Encounter Details Date Type Department Care Team Description 04/27/2022 Refill Adult Medicine [address] [address] Soni Metz MD Social History Tobacco Use [...] on filedocumented in this encounter Care Teams Telecommunications Facility Examiner Relationship Specialty Start Date End Date Moise Ponce [address] [place] [address] PCP - General Internal Medicine 02/03/22 07/07/22 Jong Olivia MD [address] [place] [address] PCP - General Internal Medicine 07/08/22 documented as of this encounter
--- OUTSIDE RECORDS SUMMARY | 2024-10-05 12:23 | XMS_ITS | Encounter Summary ---
Author Organization [facility] Address [address] [place] [address] Care Team Providers Care Tooling Specialist Name Role Phone Soni Metz MD Primary Care Provider Moise Madison Primary Care Provider [phone] Jong Olivia MD Primary Care Provider Encounter Details Date Type Department Care Team Description 12/24/2014 Hospital Medical Records [address] [place] [address] Shae Moss MD [address] [place] [address] [address] [place], [place] [id number] Social History Tobacco Use Types Packs/Day Years [...] on filedocumented in this encounter Care Teams Tooling Specialist Relationship Specialty Start Date End Date Soni Metz MD PCP - General 07/01/10 02/02/22 Moise Ponce [address] [place] [address] PCP - General Internal Medicine 02/03/22 07/07/22 Jong Olivia MD [address] [place] [id number] PCP - General Internal Medicine 07/08/22 documented as of this encounter
--- OUTSIDE RECORDS SUMMARY | 2024-10-05 12:23 | XMS_ITS | Encounter Summary ---
Author Organization [facility] Address [address] [place] [address] Care Team Providers Care Ekg/Ecg Technician Name Role Phone Soni Metz MD Primary Care Provider Moise Madison Primary Care Provider [phone] Jong Olivia MD Primary Care Provider Reason for Visit * Reason Onset Date Comments Call From Pharmacy 07/12/2015 Encounter Details Date Type Department Care Team Description 07/12/2015 Telephone Medicine/Pediatrics - [address] [phone] Soni Metz MD Call From Pharmacy Social [...] this medication for this patient, please call [facility] on [facility] In [place] to clarify. documented in this encounter Plan of Treatment Not on file documented as of this encounter Visit Diagnoses Not on filedocumented in this encounter Care Teams Ekg/Ecg Technician Relationship Specialty Start Date End Date Soni Metz MD PCP - General 07/01/10 02/02/22 Moise Ponce [address] [place] [id number] PCP - General Internal Medicine 02/03/22 07/07/22 Jong Olivia MD [address] [place] [phone] PCP - General Internal Medicine 07/08/22 documented as of this encounter
--- OUTSIDE RECORDS SUMMARY | 2024-10-05 12:23 | XMS_ITS | Encounter Summary ---
Author Organization [facility] Address [address] [place] [address] Care Team Providers Care Vp Site Name Role Phone Soni Metz MD Primary Care Provider Moise Madison Primary Care Provider [phone] Jong Olivia MD Primary Care Provider Encounter Details Date Type Department Care Team Description 08/22/2019 Heel Seater Report Medical Records [address] [place] [id number] Tobias Floyd MD Social History Tobacco Use [...] on filedocumented in this encounter Care Teams Vp Site Relationship Specialty Start Date End Date Soni Metz MD PCP - General 07/01/10 02/02/22 Moise Ponce [address] [place] [phone] PCP - General Internal Medicine 02/03/22 07/07/22 Jong Olivia MD [address] [place] [phone] PCP - General Internal Medicine 07/08/22 documented as of this encounter
[2024-10-05 12:26] LABS: Basophils Absolute Auto 0.1 X10*3/uL (0.0-0.2); Basophils Percent Auto 1.2 % (0-2); Eosinophils Absolute Auto 0.1 X10*3/uL (0.0-0.4); Eosinophils Percent Auto 2.9 % (0-4); Hematocrit 41.2 % (42.0-52.0); Hemoglobin 13.6 g/dl (14.0-18.0); Imm Gran Abs Auto 0.02 X10*3/uL (0.00-0.03); Imm Gran Pct Auto 0.4 % (0.0-0.4); Lymphocytes Absolute Auto 1.2 X10*3/uL (1.2-4.9); Lymphocytes Percent Auto 25.4 % (20-40); Mean Corpuscular Hemoglobin 28.3 pg (27.0-33.0); Mean Corpuscular Volume 85.8 fL (80.0-98.0); Mean Platelet Volume 9.8 fL (9.4-12.4); Monocytes Absolute Auto 0.4 X10*3/uL (0.1-1.2); Monocytes Percent Auto 8.9 % (2-11); Neutrophils Absolute Auto 2.9 x10*3/uL (2.0-8.3); Neutrophils Percent Auto 61.2 % (45-73); Platelet Count 268 X10*3/uL (160-400); Red Cell Distribution Width 13.6 % (11.0-16.0); White Blood Count 4.8 X10*3/uL (4.8-10.8)
[2024-10-05 12:50] LABS: Appearance Urine Clear; Color Urine Yellow; Glucose Urine UA >=1000 mg/dL (Negative); Leukocyte Esterase Urine Negative (Negative); Nitrite Urine Negative (Negative); Specific Gravity - Urine >= 1.030 (1.005-1.025); UMIC TRIGGER UACC YES; Urine Blood Negative (Negative); Urine Ketones Trace mg/dL (Negative); Urine Protein Trace mg/dL (Neg-Trace)
[2024-10-05 13:05] LABS: Bacteria Urine None Seen (None Seen); RBC Urine 0-2 /HPF (0-2); WBC Urine 0-5 /HPF (0-5)
[2024-10-05 13:07] LABS: Alanine Aminotransferase 57 U/L (0-40); Albumin Level 4.1 g/dL (3.5-5.0); Alkaline Phosphatase 92 U/L (39-117); Anion Gap 14 (12-20); Aspartate Amino Transferase 35 U/L (5-37); Bilirubin Total 1.3 mg/dL (0.0-1.0); Blood Urea Nitrogen 20 mg/dL (9-16); Calcium 9.2 mg/dL (8.4-10.2); Carbon Dioxide 25 mmol/L (22-29); Chloride 102 mmol/L (96-108); Cholesterol 139 mg/dL (<200); Estimated Glomerular Filt Rate > 60; Glucose Fasting 329 mg/dL (60-99); HDL Cholesterol 31 mg/dL (>40); LDL Cholesterol Calculated 77 mg/dL (<100); Potassium 3.9 mmol/L (3.3-5.1); Sodium 137 mmol/L (135-145); Total Protein 7.3 g/dL (6.5-8.0); Triglycerides 157 mg/dL (<150)
[2024-10-05 13:09] LABS: Creatinine Urine 129.31 mg/dL
[2024-10-05 13:26] LABS: TSH reflex Free T4 1.93 uIU/mL (0.32-4.0)
== END 2024-10-05 10:31 | disposition home or self-care (01) ==
LOC: HO.LAB 10:30
PROVIDERS: PCP Nurse Practitioner Family; Visit Provider Nurse Practitioner Family
DX: Z00.00 Encounter for general adult medical examination without abnormal findings (principal); B37.42 Candidal balanitis
CPT/HCPCS: 36415; 80053; 80061; 81001; 82043; 82570; 84443; 85025

== ENCOUNTER 2024-10-11 07:51 | Outpatient (AMB) | payer OTHER, MEDICAID, SELFPAY ==
--- NOTE | 2024-10-11 07:55 | MHC.PC.OV ---
Vital Signs 10/11/24 08:02 10/11/24 08:21 Height 6 ft Weight 379 lb BMI 51.4 BP 135/79 118/78 Blood Pressure Location Lt brachial Rt brachial Position Sitting Sitting Respiration 16 Pulse 76 Pulse Source Pulse Oximeter Temp 98.1 F Temp Source Oral Pulse Oximetry (%) 98 Oxygen Delivery Method Room Air Intake Visit Reasons: 2 mos CPE, labs review Intake Note: patient here for CPE and lab review Electrical Prospecting Observer Required: No Allergies grass pollen Allergy (Mild, Verified 10/11/24 08:05) Itchy Eyes Medication List - Last Reconciled 10/11/24 by Bienvenido Marquez CNP amlodipine 10 mg PO DAILY aspirin 81 mg PO DAILY atorvastatin 20 mg PO BEDTIME 30 days azathioprine 150 mg PO DAILY losartan-hydrochlorothiazide 100-25 mg 1 tab PO DAILY 90 days metformin ER 500 mg PO BID 90 days metoprolol tartrate 50 mg PO DAILY 30 days miscellaneous medical supply 1 XL BP cuff and monitor omeprazole 20 mg PO DAILY spironolactone 25 mg PO DAILY Tobacco use date assessed: 10/11/24 Dental Screening Dental Screen Date: 10/11/24 Did you have a dental visit in the last 12 months?: No Did you have a dental problem in the last 6 months where you did not have access to dental care?: No Was dental information given to patient?: Patient has dentist HPI HPI Comments History of Present Illness Details 44-year-old male presents for an extended physical exam. He admits to taking his medications as prescribed without adverse reactions. 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 Does not vape. Drinks 1-2 glasses beer/wine once yearly. Denies recreational drug use - Has been making healthy dietary choices. Walks routinely. Generally sleep well Health maintenance - Last eye exam was with [facility] in 02/2024. He will obtain his ophthalmology record for his PCP to review. Will refer to ophthalmology for diabetic retinal exam if there was not done - Last dental visit was over a year ago; encouraged to schedule an appointment with his dentist for routine dental care - Last Tdap was 11/01/2012; received Tdap vaccine today - Has not been vaccinated for the flu this season; received the flu vaccine today - Has never had a food exam by Podiatry. Specialists - [facility] - [facility]ology - [facility] pulmonology for sleep apnea [facility] Medical History Trejo esophagus Hx of Crohn's disease High cholesterol High blood pressure Sinusitis Asthma Surgical History Hx of appendectomy H/O hernia repair Hx of tonsillectomy Family History Mother High blood pressure High cholesterol Diabetes Skin cancer Father High blood pressure Skin cancer Maternal Grandmother Diabetes Social History Housing: Other Alcohol intake: current Patient Tobacco Use Status: Former Tobacco user e-Cigarette/Vaping Use: Never Used Second Hand Smoke Exposure: No service: No Current occupational status: employed Current occupation: [employer] Cognitive needs: No Hearing needs: No Vision needs: No Questionnaire PHQ-9 Over the last 2 weeks, how often have you been bothered by any of the following problems? 1. Little interest or pleasure in doing things: not at all 2. Feeling down, depressed, or hopeless: not at all 3. Trouble falling or staying asleep, or sleeping too much: not at all 4. Feeling tired or having little energy: not at all 5. Poor appetite or overeating: not at all 6. Feeling bad about yourself - or that you are a failure or have let yourself or your family down: not at all 7. Trouble concentrating on things, such as reading the newspaper or watching television: not at all 8. Moving or speaking so slowly that other people could have noticed. Or the opposite - being so fidgety or restless that you have been moving around a lot more than usual: not at all 9. Thoughts that you would be better off or of hurting yourself in some way: not at all Total score: 0 Depression Screening Interpretation: Negative Depression Screening Done: Yes 38212 - PHQ-9 Billing: Yes Source: Developed by Drs. Jordi Dominguez, Amy Alatorre, Torres Godinez and colleagues, with an educational tuan from [employer]. Thrive Questionnaire Date Thrive assessed: 10/11/24 I am a: Patient What is your living situation today?: I have a steady place to live Within the past 12 months, did the food you bought not last and you didn't have the money to get more?: Never true Within the past 12 months, did you worry whether your food would run out before you got money to buy more?: Never true Do you have trouble paying for medicines?: No Do you have trouble getting transportation to medical appointments?: No Do you have trouble paying your heating and electricity bill?: No Do you have trouble taking care of your child, family member or friend?: No Do you have trouble with day-to-day activities such as bathing, preparing meals, shopping, managing finances, etc.?: No Are you currently unemployed and looking for a job?: No Are you interested in more education?: No Please select the resources that you would like help with: None Currently or been in a relationship where the following occur: No concerns reported THRIVE Score: 0 AUDIT C Alcohol Use Questionnaire (AUDIT-C) 1. How often do you have a drink containing alcohol?: Monthly or less 2. How many drinks containing alcohol do you have on a typical day when you are drinking?: 1 or 2 3. How often do you have six or more drinks on one occasion?: Never Total Score: 1 Score Reviewed/Action Taken: Yes RODO-7 AMB Questionnaire RODO-7 Date RODO - 7 assessed: 10/11/24 Feeling nervous, anxious, or on edge: 0 = Not at all Not being able to stop or control worryin = Not at all Worrying too much about different things: 1 = Several days Trouble relaxin = Not at all Being so restless that it is hard to sit still: 0 = Not at all Becoming easily annoyed or irritable: 0 = Not at all Feeling afraid as if something awful might happen: 0 = Not at all Total RODO-7 score (0-4 normal; 5-9 mild; 10-14 moderate; 15-21 severe): 1 Source: Developed by Drs. Jordi Dominguez, Amy Alatorre, Torres Godinez and colleagues, with an educational tuan from [employer]. RODO-7 Assessment Billing RODO-7 Assessment Tool: RODO-7 Assessment 64102 Review of Systems Const Details: Denies chills, Denies fatigue, Denies fever(s), Denies headache(s) and Denies weakness HEENT Denies change in vision, Denies dizziness, Denies headache(s), Denies hearing loss, Denies nasal congestion, Denies sinus pain, Denies sinus pressure and Denies sore throat Card Denies chest pain, Denies lightheadedness, Denies dyspnea and Denies other (palpitations) Resp Denies cough, Denies dyspnea and Denies wheezing GI Denies abdominal pain, Denies melena, Denies hematochezia, Denies change in bowel habits, Denies dyspepsia and Denies nausea Denies hematuria and Denies dysuria Musc Denies abnormal gait, Denies myalgias, Denies arthralgias, Denies numbness and Denies tingling Skin/Breast Denies rash, Denies unusual bruising and Denies wounds Neuro Denies abnormal gait, Denies dizziness, Denies headache(s), Denies memory loss, Denies numbness, Denies Sensory deficit (Neuro), Denies tingling and Denies weakness Psych Denies anxiety, Denies depression and Denies memory loss Endo Denies cold intolerance, Denies fatigue, Denies heat intolerance, Denies polydipsia and Denies polyuria Jason/Lymph Denies easy bleeding and Denies easy bruising Aller/Immun Denies wheezing Physical exam (Primary Care) Vital Signs: Last Vital Signs Temp 98.1 F 10/11/24 08:02 Pulse 76 10/11/24 08:02 Resp 16 10/11/24 08:02 BP 118/78 10/11/24 08:21 Pulse Ox 98 10/11/24 08:02 Oxygen Delivery Method Room Air 10/11/24 08:02 BMI result Body Mass Index 51.4 Tobacco/Smoking Status: Tobacco use Status Tobacco use date assessed 10/11/24 10/11/24 08:02 Patient Tobacco Use Status Former Tobacco user 10/11/24 07:59 e-Cigarette/Vaping Use Never Used 10/11/24 07:59 PHQ-9: PHQ-9 Score PHQ-9: Total score 0 10/11/24 08:02 Depression Screening Interpretation: Negative Thrive Assessment: Date of Thrive Assessment Date Thrive assessed 10/11/24 10/11/24 07:59 Currently or been in a relationship where the following occur: No concerns reported Const Other: General: no acute distress, well developed, alert and awake Nutritional Appearance: well nourished Orientation/consciousness: patient oriented x3 HENMT Head: Yes normocephalic and Yes atraumatic Ears: hearing grossly normal bilaterally and TM's normal bilaterally General nose exam: Normal external nose present and Normal nares present Mouth: Normal oral and palatal mucosa present and moist mucous membranes Teeth and gingiva: dentition normal Throat: Yes oropharynx normal Eyes Pupils: Equal, round and reactive pupils present and Pupil accommodation reflex normal EOM: EOMs intact bilaterally Neck Neck: Yes normal visual inspection, Yes no lymphadenopathy and Yes trachea midline Thyroid: Thyroid normal Carotids: no bruits Lymphatic: no lymphadenopathy noted Chest Chest palpation & inspection: normal inspection of the chest Resp Effort & Inspection: normal respiratory effort Auscultation: clear to auscultation bilaterally Cardio Rate: regular rate Rhythm: regular rhythm Heart sounds: S1 normal heart sound present, S2 normal heart sound present, no gallops, no murmurs and no rubs Bruits: no abdominal aortic bruits and no carotid bruits GI Palpation (GI): No Abdominal aortic bruit present, Soft to palpation, nontender, No hepatosplenomegaly present and No Rebound tenderness present Auscultation: normal bowel sounds General: Yes no CVA tenderness Back/Spine/Pelvis Back: no CVA tenderness Cervical Spine: cervical ROM normal and No Cervical spine tenderness Thoracic/Lumbar Spine: thoraco-lumbar ROM normal, No pain with thoraco-lumbar ROM, No thoracic spinal tenderness and No lumbar spinal tenderness Skin General: warm and dry. Normal skin color. Normal skin turgor Lesions: no lesions Rashes: no rashes Trauma: no lacerations or abrasions Wounds: no wounds Nails: normal Neuro General: patient oriented x3, gait normal and CN's II-XI intact bilaterally Cranial nerves: Yes Equal, round and reactive pupils present Cognition (Neuro): normal cognition Gait exam (Neuro): Normal gait present Motor exam (neuro): 5/5 motor strength present throughout Sensory Exam: No Sensory deficit (Neuro) Deep tendon reflexes (DTR's): Right patellar reflex intensity grade: 2+ and Left patellar reflex intensity grade: 2+ Extrem General: Yes normal to inspection, No edema and No calf tenderness Psych Appearance: grossly normal Affect: normal affect Attitude: cooperative Thought process: Normal thought process present Office Procedures Flu Questionnaire Does the patient have a severe egg allergy?: No Does the patient have severe life threatening allergies?: No Does the patient have a fever or illness today?: No Has the patient ever had Guillain-Moffett Syndrome?: No Has the patient ever had any past reaction to a flu shot?: No Immunizations Fluarix Triv 8519-6120 (PF) 45 mcg (15 mcg x 3)/0.5 mL IM syringe Performing Provider: Bienvenido Marquez CNP Performing Location: [facility] Administered by: Andry García RN on 10/11/24 08:57 Dose Route Admin Location Dispensed Lot Number Expiration Date ND Filter Screen Cleaner 0.5 mL IM Left Deltoid 0.5 mL [id number] 02/05/25 [id number] NethubINE VIS Given Date VIS Provided VIS Publication Date 10/11/24 Single Vaccine 21 Eligibility Eligibility Date Funding Source Not VFC Eligible 10/11/24 Private Boostrix Tdap 2.5 Lf unit-8 mcg-5 Lf/0.5 mL intramuscular syringe Performing Provider: Bienvenido Marquez CNP Performing Location: [facility] Administered by: Andry García RN on 10/11/24 09:00 Dose Route Admin Location Dispensed Lot Number Expiration Date [facility] Filter Screen Cleaner 0.5 mL IM Left Deltoid 0.5 mL [id number] 06/05/25 [id number] [employer] VIS Given Date VIS Provided VIS Publication Date 10/11/24 Single Vaccine 21 Eligibility Eligibility Date Funding Source Not VFC Eligible 10/11/24 Private Coding Level of Care Code Est Pt Level 3 (48545) Est Pt Prev Care 40-64y(92818) Diagnoses Normal physical examination, routine Z00.00 Primary hypertension I10 Hypertension type: primary hypertension Diabetes E11.9 High cholesterol E78.00 Hyperbilirubinemia E80.6 Elevated ALT measurement R74.01 Normocytic anemia D64.9 Morbid obesity with BMI of 50.0-59.9, adult E66.01; Z68.43 Additional Codes RODO-7 Assessment Billing - RODO-7 Assessment Tool: RODO-7 Assessment 98104 ([id number]) PHQ-9 - 33702 - PHQ-9 Billing: Yes ([id number]) Assessment & Plan Assessment & Plan (1) Normal physical examination, routine: Code(s): Z00.00 - Encounter for general adult medical examination without abnormal findings Category: Medical Plan: No significant functional limitation noted. (2) High blood pressure: Code(s): I10 - Essential (primary) hypertension Category: Medical Qualifiers: Hypertension type: primary hypertension Qualified Code(s): I10 - Essential (primary) hypertension Plan: Resting blood pressure is 118/78, within goal of less than 130/80. Continue current treatment regimen. Will continue to monitor. Verbalized understanding and agreed with treatment plan. (3) Diabetes: Code(s): E11.9 - Type 2 diabetes mellitus without complications Category: Medical Plan: Recent A1c on 07/19/2024 was 7.6%. Continue current treatment regimen. Follow-up in 2 weeks for A1c check. Verbalized understanding and agreed with treatment plan. (4) High cholesterol: Code(s): E78.00 - Pure hypercholesterolemia, unspecified Category: Medical Plan: Recent triglycerides level is slightly elevated, 157, HDL is low, 31. LDL is 77, within goal of less than 100. Total cholesterol is normal. Continue to take atorvastatin 20 mg daily. Advised to limit foods high in saturated fat and avoid foods high in trans fat. Routine exercise encouraged. Will recheck lipid panel levels in 3 months. Advised to get fasting blood work before that visit. Verbalized understanding and agreed with treatment plan. (5) Hyperbilirubinemia: Code(s): E80.6 - Other disorders of bilirubin metabolism Category: Medical Plan: Recent bilirubin level is slightly elevated, 1.3, previous level was normal. Will recheck bilirubin level and make changes as needed. Verbalized understanding and agreed with treatment plan. (6) Elevated ALT measurement: Code(s): R74.01 - Elevation of levels of liver transaminase levels Category: Medical Plan: Recent ALT level is slightly elevated, 57. Fatty liver disease likely. Routine exercise and healthy diet, including low-fat encouraged. Will recheck liver panel in 3 months. (7) Normocytic anemia: Code(s): D64.9 - Anemia, unspecified Category: Medical Plan: Recent H&H level slightly low, 13.6/41.2 respectively. Likely related to diabetes and hypertension. Will monitor H&H level periodically or with related symptoms or concerns. Verbalized understanding and agreed with the plan. (8) Morbid obesity with BMI of 50.0-59.9, adult: Code(s): E66.01 - Morbid (severe) obesity due to excess calories; Z68.43 - Body mass index [BMI] 50.0-59.9, adult Category: Medical Plan: He currently weighs 379 lb, BMI is 51.4. Declines referral to engine watchman/dietitian or weight management clinic and notes that he will follow-up with his director compensation as needed for weight management. Healthy diet and routine exercise encouraged. Follow-up as needed. Verbalized understanding and agreed with the plan. Orders: Orders Bilirubin Total 3 Months E80.6 - Other disorders of bilirubin metabolism TDaP Immunization Today Z23 - Encounter for immunization Lipid Panel 3 Months E78.00 - Pure hypercholesterolemia, unspecified Liver Panel 3 Months R74.01 - Elevation of levels of liver transaminase levels Influenza 8380-8784 Immunization Today Z23 - Encounter for immunization Referrals Podiatry Referral E11.9 - Type 2 diabetes mellitus without complications
--- OUTSIDE RECORDS SUMMARY | 2024-10-11 07:55 | XMS_ITS | Clinical Summary ---
Author Organization [facility] Address [address] [place] [address] Care Team Providers Care Munitions Handler Name Role Phone Jong Olivia MD Primary [...] hernia with mesh - Dr. Jv Thompson [facility] Medical History Medical History Date Comments Asthma, [...] mellitus), t ype 2 with renal complications ([facility]) Microalbuminuria 05/15/2022 DX:Microalbumin uria Family History [...] 2:15 PM EDT Office Visit Pulmonolgy - [facility] [address] [facility] [address] [place] [phone] Karyna Garvin MD [address] [address] Health Maintenance Due Date Last Done Comments [...] (05/15/2022) Annual BMP Blood Test Abstracted Result [facility] Provider HEALTH MAINTENANCE Final Result * Hemoglobin A1c (05/15/2022) [facility] Hemoglobin A1C 6.2 <=6.5 % Blood Venous blood specimen / Unknown Result [facility] Provider LAB BLOOD ORDERABLES Shazia l Result * (ABNORMAL) Lipid panel (05/15/2022) [facility] LDL/HDL Ratio 5(A) 0 - 4 Triglycerides 109 0 - 150 mg/dL Cholesterol 187 0 - 200 mg/dL HDL 36(A) >=40 mg/dL LDL Cholesterol 130(A) 0 - 100 mg/dL Blood Venous blood specimen / Unknown Result [facility] Provider LAB BLOOD ORDERABLES Shazia l Result * Colonoscopy (04/11/2020) [facility] Colonoscopy Abstracted, no interpretation Anatomical Region Laterality Modality Other Result [facility] Provider HEALTH MAINTENANCE Final Result * Hepatitis C Screening (01/23/2016) [facility] Hepatitis C Screening Abstracted Result [facility] Provider HEALTH MAINTENANCE Final Result from Last 3 Months or Most Recently Relevant to Health Maintenance Care Teams Munitions Handler Relationship Specialty Start Date End Date Jong Olivia MD [address] [place] [address] PCP - General 07/08/22
[2024-10-11 08:02] VITALS: BP 135/79; PULSE 76; RESP 16; TEMP 36.7; O2SAT 98; BMI 51.4
[2024-10-11 08:21] VITALS: BP 118/78
== END 2024-10-11 09:02 | disposition home or self-care (01) ==
PROVIDERS: PCP Nurse Practitioner Family; Visit Provider Nurse Practitioner Family
DX: Z00.00 Encounter for general adult medical examination without abnormal findings (principal); E11.9 Type 2 diabetes mellitus without complications; E66.01 Morbid (severe) obesity due to excess calories; Z68.43 Body mass index [BMI] 50.0-59.9, adult; I10 Essential (primary) hypertension; E78.00 Pure hypercholesterolemia, unspecified; E80.6 Other disorders of bilirubin metabolism; R74.01 Elevation of levels of liver transaminase levels; D64.9 Anemia, unspecified; Z23 Encounter for immunization

== ENCOUNTER → 2024-10-11 07:51 | Outpatient (BNVA) | payer OTHER, MEDICAID, SELFPAY | PROVIDERS: PCP Nurse Practitioner Family; Visit Provider Nurse Practitioner Family | DX: Z00.00 Encounter for general adult medical examination without abnormal findings (principal); Z23 Encounter for immunization; I10 Essential (primary) hypertension; E11.9 Type 2 diabetes mellitus without complications; E78.00 Pure hypercholesterolemia, unspecified; E80.6 Other disorders of bilirubin metabolism; R74.01 Elevation of levels of liver transaminase levels; D64.9 Anemia, unspecified; E66.01 Morbid (severe) obesity due to excess calories; Z68.43 Body mass index [BMI] 50.0-59.9, adult; Z79.899 Other long term (current) drug therapy | CPT/HCPCS: 90471; 90472; 90656; 90715; 96127 ==

== ENCOUNTER 2024-10-25 14:56 | Outpatient (AMB) | payer OTHER, MEDICAID, SELFPAY ==
--- NOTE | 2024-10-25 15:07 | A.OFFPC_ITS ---
Vital Signs 10/25/24 15:11 10/25/24 15:46 Height 6 ft Weight 370 lb 8 oz BMI 50.2 BP 132/85 116/76 Blood Pressure Location Rt brachial Rt brachial Position Sitting Sitting Respiration 16 Pulse 83 Pulse Source Pulse Oximeter Temp 97.7 F Temp Source Temporal Artery Scan Pulse Oximetry (%) 98 Oxygen Delivery Method Room Air Intake Visit Reasons: 2 wks DM Intake Note: patient here for 2 wk follow up on DM Accounts Receivable Executive Required: No Allergies grass pollen Allergy (Mild, Verified 10/25/24 15:41) Itchy Eyes Medication List - Last Reconciled 10/25/24 by Bienvenido Marquez CNP amlodipine 10 mg PO DAILY aspirin 81 mg PO DAILY atorvastatin 20 mg PO BEDTIME 30 days azathioprine 150 mg PO DAILY losartan-hydrochlorothiazide 100-25 mg 1 tab PO DAILY 90 days metformin ER 500 mg PO BID 90 days metoprolol tartrate 50 mg PO DAILY 30 days miscellaneous medical supply 1 XL BP cuff and monitor omeprazole 20 mg PO DAILY spironolactone 25 mg PO DAILY Tobacco use date assessed: 10/25/24 Dental Screening Dental Screen Date: 10/25/24 Did you have a dental visit in the last 12 months?: No Did you have a dental problem in the last 6 months where you did not have access to dental care?: No Was dental information given to patient?: Patient declined HPI HPI Comments History of Present Illness Details 44-year-old male presents for diabetes f ollow-up. He admits to taking his medications as prescribed without adverse reactions. He admits to making healthy dietary choices, including low carbs. He walks routinely. He offers no complaints and denies acute symptoms at this time. [facility] Medical History Trejo esophagus Hx of Crohn's disease High cholesterol High blood pressure Sinusitis Asthma Surgical History Hx of appendectomy H/O hernia repair Hx of tonsillectomy Family History Mother High blood pressure High cholesterol Diabetes Skin cancer Father High blood pressure Skin cancer Maternal Grandmother Diabetes Social History (Reviewed 10/02/24 @ 14:11 by CHRISTINE Pierre Housing: Other Alcohol intake: current Patient Tobacco Use Status: Former Tobacco user e-Cigarette/Vaping Use: Never Used Second Hand Smoke Exposure: No service: No Current occupational status: employed 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 Cognitive needs: No Hearing needs: No Vision needs: No Questionnaire Thrive Questionnaire Date Thrive assessed: 09/22/24 I am a: Patient What is your living situation today?: I have a steady place to live Within the past 12 months, did the food you bought not last and you didn't have the money to get more?: Never true Within the past 12 months, did you worry whether your food would run out before you got money to buy more?: Never true Do you have trouble paying for medicines?: No Do you have trouble getting transportation to medical appointments?: No Do you have trouble paying your heating and electricity bill?: No Do you have trouble taking care of your child, family member or friend?: No Do you have trouble with day-to-day activities such as bathing, preparing meals, shopping, managing finances, etc.?: No Are you currently unemployed and looking for a job?: No Are you interested in more education?: No Please select the resources that you would like help with: None Currently or been in a relationship where the following occur: No concerns reported THRIVE Score: 0 RODO-7 AMB Questionnaire RODO-7 Date RODO - 7 assessed: 10/11/24 Source: Developed by Drs. Jordi Dominguez, Amy Alatorre, Torres Godinez and colleagues, with an educational tuan from [employer]. Review of Systems Const Details: Const Denies chills, Denies fatigue, Denies fever(s), Denies headache(s) and Denies weakness ENT Denies dizziness and Denies headache(s) Card Denies chest pain, Denies lightheadedness, Denies dyspnea and Denies other (Palpitations) Resp Denies cough, Denies dyspnea, Denies wheezing and Denies other ( shortness of breath) GI Denies abdominal pain, Denies melena, Denies hematochezia, Denies change in bowel habits, Denies dyspepsia and Denies nausea Denies hematuria and Denies dysuria Musc Denies abnormal gait, Denies myalgias, Denies arthralgias, Denies numbness and Denies tingling Skin/Breast Denies rash, Denies unusual bruising and Denies wounds Neuro Denies abnormal gait, Denies dizziness, Denies headache(s), Denies memory loss, Denies numbness, Denies Sensory deficit (Neuro), Denies tingling and Denies weakness Psych Denies anxiety, Denies depression, Denies memory loss Endo Denies cold intolerance, Denies fatigue, Denies heat intolerance, Denies polydipsia and Denies polyuria Aller/Immun Denies wheezing Physical exam (Primary Care) Vital Signs: Last Vital Signs Temp 97.7 F 10/25/24 15:11 Pulse 83 10/25/24 15:11 Resp 16 10/25/24 15:11 BP 132/85 10/25/24 15:11 Pulse Ox 98 10/25/24 15:11 Oxygen Delivery Method Room Air 10/25/24 15:11 BMI result Body Mass Index 50.2 Tobacco/Smoking Status: Tobacco use Status Tobacco use date assessed 10/25/24 10/25/24 15:18 Patient Tobacco Use Status Former Tobacco user 10/25/24 15:09 e-Cigarette/Vaping Use Never Used 10/25/24 15:09 Thrive Assessment: Date of Thrive Assessment Date Thrive assessed 09/22/24 10/25/24 15:09 Currently or been in a relationship where the following occur: No concerns reported Const Other: General: no acute distress and well developed Nutritional Appearance: well nourished Orientation/consciousness: patient oriented x3 HENMT Head: Yes normocephalic and Yes atraumatic Eyes General: appearance normal, both eyes and all related structures Pupils: Equal, round and reactive pupils present EOM: EOMs intact bilaterally Resp Effort & Inspection: normal respiratory effort Auscultation: clear to auscultation bilaterally Cardio Rate: regular rate Rhythm: regular rhythm Heart sounds: S1 normal heart sound present, S2 normal heart sound present, no gallops, no murmurs and no rubs GI Palpation (GI): No Abdominal aortic bruit present, Soft to palpation, nontender, No hepatosplenomegaly present and No Rebound tenderness present Auscultation: normal bowel sounds General: Yes no CVA tenderness Back/Spine/Pelvis Back: no CVA tenderness Cervical Spine: cervical ROM normal and No Cervical spine tenderness Thoracic/Lumbar Spine: thoraco-lumbar ROM normal, No pain with thoraco-lumbar ROM, No thoracic spinal tenderness and No lumbar spinal tenderness Extrem General: Yes normal to inspection, No edema and No calf tenderness Skin General: warm and dry. Normal skin color. Normal skin turgor Neuro General: patient oriented x3, gait normal and no focal neuro deficit Cranial nerves: Yes Equal, round and reactive pupils present Cognition (Neuro): normal cognition Gait exam (Neuro): Normal gait present Sensory Exam: No Sensory deficit (Neuro) Psych Appearance: grossly normal Affect: normal affect Attitude: cooperative Thought process: Normal thought process present Results AMB Hemoglobin A1c AMB Hemoglobin A1c 13 % Last Edit by Deneen Zavala MA on 10/25/24 15:58 Coding Level of Care Code Est Pt Level 4 (92432) Diagnoses Diabetes E11.9 Primary hypertension I10 Hypertension type: primary hypertension Assessment & Plan Assessment & Plan (1) Diabetes: Code(s): E11.9 - Type 2 diabetes mellitus without complications Category: Medical Plan: A1c today is 13.0%, above goal of less than 7.0%. Previous A1c was 7.6%. Will increase metformin to 1000 mg twice daily; advised to take as prescribed. ADA diet and routine exercise encouraged. Advised to check fasting and random glucose twice daily, record readings, and bring to next appointment. Follow-up in 1 month. Verbalized understanding and agreed with treatment plan. (2) High blood pressure: Code(s): I10 - Essential (primary) hypertension Category: Medical Qualifiers: Hypertension type: primary hypertension Qualified Code(s): I10 - Essential (primary) hypertension Plan: Resting blood pressure is 116/76, within goal of less than 130/80. Continue current treatment regimen. Orders: Orders AMB Hemoglobin A1c Today Z13.9 - Encounter for screening, unspecified Medications: Changed From atorvastatin 20 mg PO BEDTIME 30 days 30 tabs 1RF To atorvastatin 20 mg PO BEDTIME 90 days 90 tabs 1RF From metoprolol tartrate 50 mg PO DAILY 30 days 90 tabs 1RF To metoprolol tartrate 50 mg PO DAILY 90 days 90 tabs 1RF From metformin ER 500 mg PO BID 90 days 180 tabs 1RF To metformin ER 1,000 mg (2 x 500 mg) PO BID 90 days 360 tabs 1RF
[2024-10-25 15:11] VITALS: BP 132/85; PULSE 83; RESP 16; TEMP 36.5; O2SAT 98; BMI 50.2
[2024-10-25 15:46] VITALS: BP 116/76
--- OUTSIDE RECORDS SUMMARY | 2024-10-25 17:05 | XMS_ITS | Clinical Summary ---
Author Organization [facility] Address [address] [place] [address] Care Team Providers Care Data Integration Analyst Name Role Phone Jong Olivia MD Primary [...] TUBES 6 or 7 yrs old PROCEDURE: VT TONSILLECTOMY & ADENOIDECTOMY <AGE 14 APPENDECTOMY 12/22/2014 PROCEDURE: LAPAROSCOPIC APPENDECTOMY; COMMENT: Dr Ajay Hoyos INCISIONAL HERNIA REPAIR 01/21/2021 N/A PROCEDURE: VT IMPLANT MESH OPN HERNIA RPR/DEBRIDEMENT CLOSURE; COMMENT: laparoscopic repair of incisional hernia with mesh - Dr. Jv Thompson [facility] Medical History Medical History Date Comments Asthma, [...] mellitus), t ype 2 with renal complications ([facility]) Microalbuminuria 05/15/2022 DX:Microalbumin uria Family History Medical [...] 2:15 PM EDT Office Visit Pulmonolgy - [place] [address] [facility] [address] [place] [phone] Karyna Garvin MD [address] [address] Health Maintenance Due Date Last Done Comments [...] (05/15/2022) Annual BMP Blood Test Abstracted Result [facility] Provider HEALTH MAINTENANCE Final Result * Hemoglobin A1c (05/15/2022) [facility] Hemoglobin A1C 6.2 <=6.5 % Blood Venous blood specimen / Unknown Result [facility] Provider LAB BLOOD ORDERABLES Shazia l Result * (ABNORMAL) Lipid panel (05/15/2022) [facility] LDL/HDL Ratio 5(A) 0 - 4 Triglycerides 109 0 - 150 mg/dL Cholesterol 187 0 - 200 mg/dL HDL 36(A) >=40 mg/dL LDL Cholesterol 130(A) 0 - 100 mg/dL Blood Venous blood specimen / Unknown Result [facility] Provider LAB BLOOD ORDERABLES Shazia l Result * Colonoscopy (04/11/2020) [facility] Colonoscopy Abstracted, no interpretation Anatomical Region Laterality Modality Other Result [facility] Provider HEALTH MAINTENANCE Final Result * Hepatitis C Screening (01/23/2016) [facility] Hepatitis C Screening Abstracted Result [facility] Provider HEALTH MAINTENANCE Final Result from Last 3 Months or Most Recently Relevant to Health Maintenance Care Teams Data Integration Analyst Relationship Specialty Start Date End Date Jong Olivia MD [address] [place] [address] PCP - General 07/08/22
--- OUTSIDE RECORDS SUMMARY | 2024-10-25 17:05 | XMS_ITS | Encounter Summary ---
Author Organization [facility] Address [address] [place] [address] Care Team Providers Care Manager Clinical Applications Name Role Phone Soni Metz MD Primary Care Provider Moise [place] Primary Care Provider [phone] Jong Olivia MD Primary Care Provider Reason for Visit * Reason Onset Date Comments Sleep Apnea 05/22/2020 Provider Call Back 05/22/2020 Encounter Details Date Type Department Care Team Description 05/22/2020 Telephone Pulmonology - [place] 175 [facility] [address] [place] [address] Jennifer Shaffer [facility] [address] [place] [address] Sleep Apnea; Provider Call Back Social History [...] on filedocumented in this encounter Care Teams Manager Clinical Applications Relationship Specialty Start Date End Date Soni Metz MD PCP - General 07/01/10 02/02/22 Moise Ponce [address] [place] [address] PCP - General Internal Medicine 02/03/22 07/07/22 Jong Olivia MD [address] [place] [address] PCP - General Internal Medicine 07/08/22 documented as of this encounter
--- OUTSIDE RECORDS SUMMARY | 2024-10-25 17:05 | XMS_ITS | Encounter Summary ---
Author Organization [facility] Address [address] [place] [address] Care Team Providers Care Magisterial District Judge Name Role Phone Moise Ponce Primary Care Provider [phone] Jong Olivia MD Primary Care Provider Encounter Details Date Type Department Care Team Description 04/27/2022 Refill Adult Medicine [address] [address] Snoi Metz MD Social History Tobacco Use Types [...] on filedocumented in this encounter Care Teams Magisterial District Judge Relationship Specialty Start Date End Date Moise Ponce [address] [place] [address] PCP - General Internal Medicine 02/03/22 07/07/22 Jong Olivia MD [address] [place] [address] PCP - General Internal Medicine 07/08/22 documented as of this encounter
--- OUTSIDE RECORDS SUMMARY | 2024-10-25 17:05 | XMS_ITS | Encounter Summary ---
Author Organization [facility] Address [address] [place] [address] Care Team Providers Care Automobile Mechanic Apprentice Name Role Phone Soni Metz MD Primary Care Provider Moise [place] Primary Care Provider [phone] Jong Olivia MD Primary Care Provider Encounter Details Date Type Department Care Team Description 02/07/2013 Fourth Officer Report Medical Records [address] [place] [address] Hebert Reece MD Social History Tobacco Use [...] on filedocumented in this encounter Care Teams Automobile Mechanic Apprentice Relationship Specialty Start Date End Date Soni Metz MD PCP - General 07/01/10 02/02/22 Moise Ponce [address] [place] [phone] PCP - General Internal Medicine 02/03/22 07/07/22 Jong Olivia MD [address] [place] [address] PCP - General Internal Medicine 07/08/22 documented as of this encounter
--- OUTSIDE RECORDS SUMMARY | 2024-10-25 17:05 | XMS_ITS | Encounter Summary ---
Author Organization [facility] Address [address] [place] [address] Care Team Providers Care Job Compositor Name Role Phone Jong Olivia MD Primary Care Provider Reason for Visit * Reason Onset Date Comments Prior Authorization 09/23/2022 Encounter Details Date Type Department Care Team Description 09/23/2022 Telephone Adult Medicine [facility] [address] [place] [address] Jong Olivia MD [address] [place] [address] Prior Authorization Social History Tobacco Use Types [...] days or this will Appproval faxed to [facility] at [phone] * Telephone Encounter - Elena Pham M.A. - 09/25/2022 10:54 AM EST Message from cover my meds stating Prior auth was cancelled, that [facility] does not review for thismedication Prior authorization redone on [employer] [facility] [place] [place] [employer] form and faxed today Dx code J45.20 [...] What Pharmacy did the fax come from: [facility] fax #: [phone] [employer] Party Information from fax: What Prescription Plan [...] on filedocumented in this encounter Care Teams Job Compositor Relationship Specialty Start Date End Date Jong Olivia MD [address] [place] [address] PCP - General Internal Medicine 07/08/22 documented as of this encounter
--- OUTSIDE RECORDS SUMMARY | 2024-10-25 17:05 | XMS_ITS | Encounter Summary ---
Author Organization [facility] Address [address] [place] [address] Care Team Providers Care Oracle Pl Sql Developer Name Role Phone oSni Metz MD Primary Care Provider Moise [place] Primary Care Provider [phone] Jong Olivia MD Primary Care Provider Encounter Details Date Type Department Care Team Description 01/24/2022 Pt. Non Urgent Medical Question Pulmonology - [place] 175 [facility] [address] [place] [phone] Jennifer Shaffer FNP [address] [place] [address] Social History Tobacco Use Types Packs/Day Years [...] on filedocumented in this encounter Care Teams Oracle Pl Sql Developer Relationship Specialty Start Date End Date Soni Metz MD PCP - General 07/01/10 02/02/22 Moise Ponce [address] [place] [address] PCP - General Internal Medicine 02/03/22 07/07/22 Jong Olivia MD [address] [place] [address] PCP - General Internal Medicine 07/08/22 documented as of this encounter
--- OUTSIDE RECORDS SUMMARY | 2024-10-25 17:05 | XMS_ITS | Encounter Summary ---
Author Organization [facility] Address [address] [place] [address] Care Team Providers Care Sign Hanger Supervisor Name Role Phone Soni Metz MD Primary Care Provider Moise [place] Primary Care Provider [phone] Jong Olivia MD Primary Care Provider Encounter Details Date Type Department Care Team Description 07/22/2018 Can Repairer Report Medical Records [address] [place] [address] Prasadrichaprincess Benjamin [address] [place] [address], [address] [place] [address] Social History Tobacco Use Types Packs/Day Years [...] on filedocumented in this encounter Care Teams Sign Hanger Supervisor Relationship Specialty Start Date End Date Soni Metz MD PCP - General 07/01/10 02/02/22 Moise Ponce [address] [place] [address] PCP - General Internal Medicine 02/03/22 07/07/22 Jong Olivia MD [address] [place] [address] PCP - General Internal Medicine 07/08/22 documented as of this encounter
--- OUTSIDE RECORDS SUMMARY | 2024-10-25 17:05 | XMS_ITS | Encounter Summary ---
Author Organization [facility] Address [address] [place] [address] Care Team Providers Care Computer Operator Name Role Phone Soni Metz MD Primary Care Provider Moise [place] Primary Care Provider [phone] Jong Olivia MD Primary Care Provider Encounter Details Date Type Department Care Team Description 10/09/2021 Pt. Non Urgent Medical Question Pulmonology - [place] 175 [facility] [address] [place] [phone] Jennifer Shaffer FNP [address] [place] [address] Social History Tobacco Use Types Packs/Day Years [...] * Telephone Encounter - CELESTE Motta - 10/09/2021 9:18 AM ESTFrom: Joe Ramires To: Steven Shaffer Sent: 10/09/2021 8:34 AM EST Subject: NUmber for CPAP provider Davon, I seem to have lost the number for the provider we talked about for my CPAP equipment. I was wondering if I could get that number again. documented in this encounter Plan of Treatment Not on file documented as of this encounter Visit Diagnoses Not on filedocumented in this encounter Care Teams Computer Operator Relationship Specialty Start Date End Date Soni Metz MD PCP - General 07/01/10 02/02/22 Moise Ponce [address] [place] [address] PCP - General Internal Medicine 02/03/22 07/07/22 Jong Olivia MD [address] [place] [address] PCP - General Internal Medicine 07/08/22 documented as of this encounter
--- OUTSIDE RECORDS SUMMARY | 2024-10-25 17:05 | XMS_ITS | Encounter Summary ---
Author Organization [facility] Address [address] [place] [address] Care Team Providers Care Sales Attendant Name Role Phone Soni Metz MD Primary Care Provider Moise [place] Primary Care Provider [phone] Jong Olivia MD Primary Care Provider Encounter Details Date Type Department Care Team Description 09/09/2017 Wood Last Maker Report Medical Records [address] [place] [address] Prasadrichaprincess [place] [address] [place] [address], [address] [place] [address] Social History Tobacco Use Types Packs/Day Years [...] on filedocumented in this encounter Care Teams Sales Attendant Relationship Specialty Start Date End Date Soni Metz MD PCP - General 07/01/10 02/02/22 Moise Ponce [address] [place] [address] PCP - General Internal Medicine 02/03/22 07/07/22 Jong Olivia MD [address] [place] [address] PCP - General Internal Medicine 07/08/22 documented as of this encounter
--- OUTSIDE RECORDS SUMMARY | 2024-10-25 17:05 | XMS_ITS | Encounter Summary ---
Author Organization [facility] Address [address] [place] [address] Care Team Providers Care Operations Inspector Name Role Phone Soni Metz MD Primary Care Provider Moise [place] Primary Care Provider Jong Olivia MD Primary Care Provider Reason for Visit * Reason Onset Date Comments Orders Call 11/12/2015 unresulted order s Encounter Details Date Type Department Care Team Description 11/12/2015 Telephone Medicine/Pediatrics - [address] [phone] Demetri Gardiner PA-C Orders Call (unresulted orders) [...] on filedocumented in this encounter Care Teams Operations Inspector Relationship Specialty Start Date End Date Soni Metz MD PCP - General 07/01/10 02/02/22 Moise Ponce [address] [place] [address] PCP - General Internal Medicine 02/03/22 07/07/22 Jong Olivia MD [address] [place] [address] PCP - General Internal Medicine 07/08/22 documented as of this encounter
--- OUTSIDE RECORDS SUMMARY | 2024-10-25 17:05 | XMS_ITS | Encounter Summary ---
Author Organization [facility] Address [address] [place] [address] Care Team Providers Care Food Product Inspector Name Role Phone Soni Metz MD Primary Care Provider Miose [place] Primary Care Provider [phone] Jong Olivia MD Primary Care Provider Encounter Details Date Type Department Care Team Description 08/22/2019 Management Psychologist Report Medical Records [address] [place] [address] Tobias Floyd MD Social History Tobacco Use [...] on filedocumented in this encounter Care Teams Food Product Inspector Relationship Specialty Start Date End Date Soni Metz MD PCP - General 07/01/10 02/02/22 Moise Ponce [address] [place] [address] [phone] PCP - General Internal Medicine 02/03/22 07/07/22 Jong Olivia MD [address] [place] [phone] PCP - General Internal Medicine 07/08/22 documented as of this encounter
--- OUTSIDE RECORDS SUMMARY | 2024-10-25 17:05 | XMS_ITS | Encounter Summary ---
Author Organization [facility] Address [address] [place] [address] Care Team Providers Care Computer Programmer Name Role Phone Moise Prather Primary Care Provider [phone] Jong Olivia MD Primary Care Provider Reason for Visit * Reason Comments E-prescribe Rx Request Encounter Details Date Type Department Care Team Description 04/24/2022 Refill Medicine/Pediatrics - [address] [phone] Ally Grimes PA-C E-prescribe Rx Request Social [...] ?? Patients current insurance carrier is: Payor: [employer] / Plan: NetadminO $25 AK[place] 1 / Product Type: HMO [id number] ?? documented in this encounter Plan of Treatment Not on file documented as of this encounter Visit Diagnoses Not on filedocumented in this encounter Care Teams Computer Programmer Relationship Specialty Start Date End Date Moise Prather [address] [place], [place] [phone] PCP - General Internal Medicine 02/03/22 07/07/22 Jong Olivia MD [address] [place], [place] [phone] PCP - General Internal Medicine 07/08/22 documented as of this encounter
--- OUTSIDE RECORDS SUMMARY | 2024-10-25 17:05 | XMS_ITS | Encounter Summary ---
Author Organization [facility] Address [address] [place] [address] Care Team Providers Care Customer Success Intern Name Role Phone Soni Metz MD Primary Care Provider Moise [place] Primary Care Provider [phone] Jong Olivia MD Primary Care Provider Encounter Details Date Type Department Care Team Description 01/21/2021 Hospital Medical Records [address] [place] [address] Jv Thompson MD [address] [place] [address] Social History Tobacco Use Types Packs/Day Years [...] on filedocumented in this encounter Care Teams Customer Success Intern Relationship Specialty Start Date End Date Soni Metz MD PCP - General 07/01/10 02/02/22 Moise Ponce [address] [place] [address] PCP - General Internal Medicine 02/03/22 07/07/22 Jong Olivia MD [address] [place] [phone] PCP - General Internal Medicine 07/08/22 documented as of this encounter
--- OUTSIDE RECORDS SUMMARY | 2024-10-25 17:05 | XMS_ITS | Encounter Summary ---
Author Organization [facility] Address [address] [place] [address] Care Team Providers Care Turret Punch Operator Name Role Phone Soni Metz MD Primary Care Provider Moise Madison Primary Care Provider [phone] Jong Olivia MD Primary Care Provider Encounter Details Date Type Department Care Team Description 12/22/2014 Hospital Medical Records [address] [place] [address] Shae Moss MD [address] [place] [address] [address] [place], [place] [id number] Social History Tobacco Use Types Packs/Day Years [...] on filedocumented in this encounter Care Teams Turret Punch Operator Relationship Specialty Start Date End Date Soni Metz MD PCP - General 07/01/10 02/02/22 Moise Ponce [address] [place] [address] PCP - General Internal Medicine 02/03/22 07/07/22 Jong Olivia MD [address] [place] [id number] PCP - General Internal Medicine 07/08/22 documented as of this encounter
--- OUTSIDE RECORDS SUMMARY | 2024-10-25 17:05 | XMS_ITS | Encounter Summary ---
Author Organization [facility] Address [address] [place] [address] Care Team Providers Care Dental Ceramist Assistant Name Role Phone Jong Olivia MD Primary Care Provider Reason for Visit * Reason Comments E-prescribe Rx Request Encounter Details Date Type Department Care Team Description 01/23/2023 Refill Adult Medicine [address] [address] Moise Ponce [address] [place] [id number] E-prescribe Rx Request Social History Tobacco Use [...] Telephone Encounter - Skye Grimes M.A. - 04/01/2023 9:28 AM EDT Last office visit 06/16/[address] Ponce Next office visit 05/04/23 with new PCP Will you fill until seen by new PCP? Lab Results Component Value Date HGBA1C 6.2 05/15/2022 MALBUR 32.7 05/15/2022 MALBCR 14.1 05/15/2022 CHOL 187 05/15/2022 LDL 130 05/15/2022 HDL 36 05/15/2022 TRIG 109 05/15/2022 GLU 119 05/15/2022 CREAT 0.85 05/15/2022 * Telephone Encounter - Kianna Roberts - 02/10/2023 10:16 AM EDT Lmom for patient to call back and schedule appointment. ?? Patient may have transferred out of the practice as his insurance does have a new pcp listed. Waiting for call back from patient to confirm this as well documented in this encounter Plan of Treatment Not on file documented as of this encounter Visit Diagnoses Not on filedocumented in this encounter Care Teams Dental Ceramist Assistant Relationship Specialty Start Date End Date Jong Olivia MD [address] [place] [phone] PCP - General Internal Medicine 07/08/22 documented as of this encounter
== END 2024-10-25 16:03 | disposition home or self-care (01) ==
LOC: HO.HMCFM 14:57
PROVIDERS: PCP Nurse Practitioner Family; Visit Provider Nurse Practitioner Family
DX: E11.9 Type 2 diabetes mellitus without complications (principal); I10 Essential (primary) hypertension; Z13.9 Encounter for screening, unspecified

== ENCOUNTER → 2024-10-25 14:56 | Outpatient (BNVA) | payer OTHER, MEDICAID, SELFPAY | PROVIDERS: PCP Nurse Practitioner Family; Visit Provider Nurse Practitioner Family | DX: E11.9 Type 2 diabetes mellitus without complications (principal); I10 Essential (primary) hypertension; Z79.84 Long term (current) use of oral hypoglycemic drugs; Z79.899 Other long term (current) drug therapy | CPT/HCPCS: 83036 ==

== ENCOUNTER 2024-12-23 09:48 | Outpatient (REF) | payer OTHER, SELFPAY ==
--- OUTSIDE RECORDS SUMMARY | 2024-12-23 09:50 | XMS_ITS | Clinical Summary ---
Author Organization [facility] Address [address] [place] [address] Phone Care Team Providers Care Dairy Processing Equipment Operator Name Role Phone Bienvenido Marquez WICKER WORKER Primary Care Provider [phone] Allergies Active Allergy Reactions Criticality Noted Date [...] (diabetes mellitus), type 2 with renal complications ([facility] V24, [facility] V28) 10/08/2023 Asthma, exercise induced 10/08/2023 Chronic sinusitis 10/08/2023 Family history of diabetes mellitus 10/08/2023 Morbid obesity with body mas s index (BMI) of 50.0 to 59.9 in adult ([facility] V24, [facility] V28) 10/08/2023 Microalbuminuria 05/15/2022 Essential hypertension 12/13/2020 Anemia 05/15/2019 Crohn's disease without comp lication ([facility] V24, [facility] V28) 07/23/2016 Colitis 03/17/2016 Overview (10/08/2023): Possibly Crohn's Tubular adenoma of colon 12/26/2015 Overview (10/08/2023): On colonoscopy 12/26/15; CN q 5 yrs Obstructive sleep apnea hypopnea, severe 016 Overview (10/08/2023): No-show for ENT appointment N/S for Pulmo 03/30/2016 Vitamin D deficiency 10/25/2015 Fatty liver 01/14/2015 Hyperlipidemia, mixed 11/07/2012 Anxiety 10/07/2010 Allergic rhinitis 10/07/2010 Encounters Date Type Department Care Team Description 12/18/2024 Telephone Pulmonolgy - [place] [address] [facility] [address] [place] [address] Karyna Garvin MD dme request from Last 3 Months Immunizations Name Administration Dates Next Due Influenza [...] TUBES 6 or 7 yrs old PROCEDURE: MO TONSILLECTOMY & ADENOIDECTOMY <AGE 12 APPENDECTOMY 12/22/2014 PROCEDURE: LAPAROSCOPIC APPENDECTOMY; COMMENT: Dr Ajay Hoyos INCISIONAL HERNIA REPAIR 01/21/2021 N/A PROCEDURE: MO IMPLANT MESH OPN HERNIA RPR/DEBRIDEMENT CLOSURE; COMMENT: laparoscopic repair of incisional hernia with mesh - Dr. Jv Thompson [facility] Medical History Medical History Date Comments Asthma, exercise induced DX:Asth ma, exercise induced Allergic rhinitis DX:Allergic rh initis Chronic sinusitis DX:Chronic sin usitis Family history of diabetes mellitus 11/01/2012 DX:Family history of diabetes mellitus Hypertriglyceridemia 11/07/2012 DX:Hypertri glyceridemia Diabetes type 2, controlled (CMS/HCC V24, CMS/HCC V28) DX:Diabetes type 2, controll ed ([facility]) DM (diabetes mellitus), type 2 with renal complications (CMS/HCC V24, CMS/HCC V28) DX:DM (diabet es mellitus), type 2 with renal complications ([facility]) Microalbuminuria 05/15/2022 DX:Microalbumin uria Family [...] Care Team (Late st Contact Info) Description 01/15/2025 1:45 PM EDT Consult Orthopedic Surgery - [place] [address] [phone] Ranjit Farnsworth DPM [address] [address] 03/19/2025 2:15 PM EDT Office Visit Pulmonolgy - [place] [address] [phone] Karyna Garvin MD [address] [address] Health Maintenance Due Date Last Done Comments [...] BMP Blood Test 05/15/2023 05/15/2022 COVID-19 Vaccine ( season) 2024 07/11/2021, 11/08/2020, 10/11/2020, Additional history exists Influenza Vaccine (Season Ended) 2025 05/10/2022, 05/04/2021, 05/03/2021, Additional history exists Colorectal Cancer [...] age to complete this topic Meningococcal B Vaccine Aged Out No l onger eligible based on patient's age to complete this topic RSV Immunization Patients Under 20 months Aged Out No longer eligible based on patient's age to complete this topic Varicella Vaccines Aged Out No longer eligible based on patient's age to complete this topic Procedures Procedure Name Priority Date/Time Associated Diagnosis Comments HM URINE ALBUMIN CREATININE RATIO Routine 05/15/2022 ANNUAL BMP BLOOD TEST Routine 05/15/2022 HEMOGLOBIN A1C Routine 05/15/2022 LIPID PANEL Routine 05/15/2022 COLONOSCOPY Routine 04/11/2020 HEPATITIS C SCREENING Routine 01/23/2016 from Last 3 Months or Most Recently Relevant to Health Maintenance Results * Urine Albumin Creatinine Ratio (05/15/2022) Pathologist [facility] Urine Albumin Creatinine Ratio Abstracted Result [facility] Provider HEALTH MAINTENANCE Final Result * Annual BMP Blood Test (05/15/2022) Pathologist [facility] Annual BMP Blood Test Abstracted Result [facility] Provider HEALTH MAINTENANCE Final Result * Hemoglobin A1c (05/15/2022) [facility] Hemoglobin A1C 6.2 <=6.5 % Blood Venous blood specimen / Unknown Result [facility] Provider LAB BLOOD ORDERABLES Shazia l Result * (ABNORMAL) Lipid panel (05/15/2022) [facility] LDL/HDL Ratio 5(A) 0 - 4 Triglycerides 109 0 - 150 mg/dL Cholesterol 187 0 - 200 mg/dL HDL 36(A) >=40 mg/dL LDL Cholesterol 130(A) 0 - 100 mg/dL Blood Venous blood specimen / Unknown [facility] Provider LAB BLOOD ORDERABLES Shazia l Result * Colonoscopy (04/11/2020) [facility] Colonoscopy Abstracted, no interpretation Anatomical Region Laterality Modality Other [facility] Provider HEALTH MAINTENANCE Final Result * Hepatitis C Screening (01/23/2016) [facility] Hepatitis C Screening Abstracted Result [facility] Provider HEALTH MAINTENANCE Final Result from Last 3 Months or Most Recently Relevant to Health Maintenance Insurance [facility] [address] [place] [address] MEDICAID - [place] Care Teams Dairy Processing Equipment Operator Relationship Specialty Start Date End Date Bienvenido Marquez FNP [address] [place] [address] PCP - General Family Medicine 10/30/24
--- OUTSIDE RECORDS SUMMARY | 2024-12-23 09:50 | XMS_ITS | Encounter Summary ---
Author Organization [facility] Address [address] [place] [address] Care Team Providers Care Talent Partner Name Role Phone Bienvenido Marquez CELESTE Primary Care Provider [phone] Reason for Visit * Reason Onset Date Comments dme request 12/18/2024 Encounter Details Date Type Department Care Team ([facility] st Contact Info) Description 12/18/2024 Telephone [facility] [address] [phone] Karyna Garvin MD 175 [facility] [address] [place] [address] dme request Social History Tobacco Use Types Packs/Day Years [...] on file Sexual Orientation Not on file documented as of this encounter Progress Notes * Jeny Bear MA - 12/18/2024 4:39 PM EDT Printed and placed in provider folder to be addressed when returns to office * Raquel Blair - 12/18/2024 2:16 PM EDT Fax received from [facility] for supply order . Will attach to encounter Nov 03/19/25 documented in this encounter Plan of Treatment Upcoming Encounters Date Type Department Care Team (Late st Contact Info) Description 01/15/2025 1:45 PM EDT Consult Orthopedic Surgery - [place] [address] 175 [facility] [address] [place] [address] Ranjit Farnsworth DPM 175 [facility] [address] [place] [address] 03/19/2025 2:15 PM EDT Office Visit Pulmonolgy - [place] 175 [facility] [address] [place] [phone] Karyna Garvin MD 175 [facility] [address] [place] [address] documented as of this encounter Visit Diagnoses Not on filedocumented in this encounter Care Teams Talent Partner Relationship Specialty Start Date End Date Bienvenido Marquez FNP [address] [place] [phone] PCP - General Family Medicine 10/30/24 documented as of this encounter
[2024-12-23 11:58] LABS: Alanine Aminotransferase 40 U/L (0-40); Albumin Level 4.1 g/dL (3.5-5.0); Alkaline Phosphatase 85 U/L (39-117); Aspartate Amino Transferase 25 U/L (5-37); Bilirubin Direct 0.3 mg/dL (0.0-0.5); Bilirubin Total 1.2 mg/dL (0.0-1.0); Cholesterol 155 mg/dL (<200); HDL Cholesterol 35 mg/dL (>40); LDL Cholesterol Calculated 86 mg/dL (<100); Total Protein 7.1 g/dL (6.5-8.0); Triglycerides 173 mg/dL (<150)
== END 2024-12-23 09:49 | disposition home or self-care (01) ==
LOC: HO.LAB 09:48
PROVIDERS: PCP Nurse Practitioner Family; Visit Provider Nurse Practitioner Family
DX: R74.01 Elevation of levels of liver transaminase levels (principal); E78.00 Pure hypercholesterolemia, unspecified
CPT/HCPCS: 36415; 80061; 80076

== ENCOUNTER 2024-12-26 12:47 | Outpatient (AMB) | payer OTHER, SELFPAY ==
--- NOTE | 2024-12-26 12:48 | A.OFFPC_ITS ---
Vital Signs 12/26/24 12:54 12/26/24 13:34 Height 6 ft Weight 360 lb 2 oz BMI 48.8 BP 153/93 H 126/82 Blood Pressure Location Lt brachial Lt brachial Position Sitting Sitting Respiration 16 Pulse 93 Pulse Source Pulse Oximeter Temp 98.2 F Temp Source Oral Pulse Oximetry (%) 98 Oxygen Delivery Method Room Air Intake Visit Reasons: 1 mos DM - see comments Intake Note: patient here for 1 moth follow up on DM Audio Video Mechanic Required: No Allergies grass pollen Allergy (Mild, Verified 12/26/24 13:04) Itchy Eyes Medication List - Last Reconciled 12/26/24 by Bienvenido Marquez CNP amlodipine 10 mg PO DAILY aspirin 81 mg PO DAILY atorvastatin 20 mg PO BEDTIME 90 days azathioprine 150 mg PO DAILY losartan-hydrochlorothiazide 100-25 mg 1 tab PO DAILY 90 days metformin ER 1,000 mg (2 x 500 mg) PO BID 90 days metoprolol tartrate 50 mg PO DAILY 90 days miscellaneous medical supply 1 XL BP cuff and monitor omeprazole 20 mg PO DAILY spironolactone 25 mg PO DAILY Tobacco use date assessed: 12/26/24 Dental Screening Dental Screen Date: 12/26/24 Did you have a dental visit in the last 12 months?: No Did you have a dental problem in the last 6 months where you did not have access to dental care?: No Was dental information given to patient?: Yes HPI HPI Comments History of Present Illness Details 44-year-old male presents for diabetes f [facility]. He admits to taking his medications as prescribed without adverse reactions. He admits to making healthy dietary choices, including low carbs. However, he consumed significant amount of cheese. He walks routinely. He did not bring the log for home blood sugar readings. However, he notes that his fasting glucose have been above 200 and random glucose above 300. He notes mild itching to the foreskin of his penis and that he has not been able to retract the skin. He denies pain, discharge, swelling, redness. He was treated for yeast infection of the penis in September and notes complete resolution of symptoms at the time. 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 Cognitive needs: No Hearing needs: No Vision needs: No Questionnaire Thrive Questionnaire Date Thrive assessed: 09/22/24 I am a: Patient What is your living situation today?: I have a steady place to live Within the past 12 months, did the food you bought not last and you didn't have the money to get more?: Never true Within the past 12 months, did you worry whether your food would run out before you got money to buy more?: Never true Do you have trouble paying for medicines?: No Do you have trouble getting transportation to medical appointments?: No Do you have trouble paying your heating and electricity bill?: No Do you have trouble taking care of your child, family member or friend?: No Do you have trouble with day-to-day activities such as bathing, preparing meals, shopping, managing finances, etc.?: No Are you currently unemployed and looking for a job?: No Are you interested in more education?: No Please select the resources that you would like help with: None Currently or been in a relationship where the following occur: No concerns reported THRIVE Score: 0 RODO-7 AMB Questionnaire RODO-7 Date RODO - 7 assessed: 10/11/24 Source: Developed by Drs. Jordi Dominguez, Amy Alatorre, Torres Godinez and colleagues, with an educational tuan from [employer]. Review of Systems Const Details: Const Denies chills, Denies fatigue, Denies fever(s), Denies headache(s) and Denies weakness ENT Denies dizziness and Denies headache(s) Card Denies chest pain, Denies lightheadedness, Denies dyspnea and Denies other (Palpitations) Resp Denies cough, Denies dyspnea, Denies wheezing and Denies other ( shortness of breath) GI Denies abdominal pain, Denies melena, Denies hematochezia, Denies change in bowel habits, Denies dyspepsia and Denies nausea Reports as per HPI Musc Denies abnormal gait, Denies myalgias, Denies arthralgias, Denies numbness and Denies tingling Skin/Breast Denies rash, Denies unusual bruising and Denies wounds Neuro Denies abnormal gait, Denies dizziness, Denies headache(s), Denies memory loss, Denies numbness, Denies Sensory deficit (Neuro), Denies tingling and Denies weakness Psych Denies anxiety, Denies depression, Denies memory loss Endo Denies cold intolerance, Denies fatigue, Denies heat intolerance, Denies polydipsia and Denies polyuria Aller/Immun Denies wheezing Physical exam (Primary Care) Vital Signs: Last Vital Signs Temp 98.2 F 12/26/24 12:54 Pulse 93 12/26/24 12:54 Resp 16 12/26/24 12:54 BP 153/93 H 12/26/24 12:54 Pulse Ox 98 12/26/24 12:54 Oxygen Delivery Method Room Air 12/26/24 12:54 BMI result Body Mass Index 48.8 Tobacco/Smoking Status: Tobacco use Status Tobacco use date assessed 12/26/24 12/26/24 12:57 Patient Tobacco Use Status Former Tobacco user 12/26/24 12:49 e-Cigarette/Vaping Use Never Used 12/26/24 12:49 Thrive Assessment: Date of Thrive Assessment Date Thrive assessed 09/22/24 12/26/24 12:49 Currently or been in a relationship where the following occur: No concerns reported Const Other: General: no acute distress and well developed Nutritional Appearance: well nourished Orientation/consciousness: patient oriented x3 HENMT Head: Yes normocephalic and Yes atraumatic Eyes General: appearance normal, both eyes and all related structures Pupils: Equal, round and reactive pupils present EOM: EOMs intact bilaterally Resp Effort & Inspection: normal respiratory effort Auscultation: clear to auscultation bilaterally Cardio Rate: regular rate Rhythm: regular rhythm Heart sounds: S1 normal heart sound present, S2 normal heart sound present, no gallops, no murmurs and no rubs GI Palpation (GI): No Abdominal aortic bruit present, Soft to palpation, nontender, No hepatosplenomegaly present and No Rebound tenderness present Auscultation: normal bowel sounds No swelling, erythema, drainage, or overt infection noted to the penis, unretracted foreskin noted Back/Spine/Pelvis Back: no CVA tenderness Cervical Spine: cervical ROM normal and No Cervical spine tenderness Thoracic/Lumbar Spine: thoraco-lumbar ROM normal, No pain with thoraco-lumbar ROM, No thoracic spinal tenderness and No lumbar spinal tenderness Extrem General: Yes normal to inspection, No edema and No calf tenderness Skin General: warm and dry. Normal skin color. Normal skin turgor Neuro General: patient oriented x3, gait normal and no focal neuro deficit Cranial nerves: Yes Equal, round and reactive pupils present Cognition (Neuro): normal cognition Gait exam (Neuro): Normal gait present Sensory Exam: No Sensory deficit (Neuro) Psych Appearance: grossly normal Affect: normal affect Attitude: cooperative Thought process: Normal thought process present Coding Level of Care Code Est Pt Level 4 (09489) Complex EM visit Add On G2211 Diagnoses Type 2 diabetes mellitus without complications E11.9 Primary hypertension I10 Hypertension type: primary hypertension Candidiasis of penis B37.42 Phimosis N47.1 Assessment & Plan Assessment & Plan (1) Type 2 diabetes mellitus without complications: Code(s): E11.9 - Type 2 diabetes mellitus without complications Category: Medical Plan: He did not bring the log for home blood sugar readings. However, he notes that his fasting glucose have been above 200 and random glucose above 300. A1c on 10/25/2024 was 13%. Will start glipizide 5 mg daily; advised to take as prescribed. Continue to take metformin as prescribed. ADA diet and routine exercise encouraged. Follow-up in 1 month or sooner with symptoms or concerns. Verbalized understanding and agreed with the plan. (2) High blood pressure: Code(s): I10 - Essential (primary) hypertension Category: Medical Qualifiers: Hypertension type: primary hypertension Qualified Code(s): I10 - Essential (primary) hypertension Plan: Resting blood pressure is 126/82, slightly above goal of less than 130/80. Continue current treatment regimen. Low-sodium diet encouraged. Will continue to monitor. Verbalized understanding and agreed with the plan. (3) Candidiasis of penis: Code(s): B37.42 - Candidal balanitis Category: Medical Plan: He notes mild itching to the foreskin of his penis and that he has not been able to retract the skin. He denies pain, discharge, swelling, redness. He was treated for yeast infection of the penis in September and notes complete resolution of symptoms at the time. No swelling, erythema, drainage, or overt infection noted to the penis, unretracted foreskin noted. Instructed on good genital hygiene. Fluconazole ordered for candidiasis and betamethasone cream for phimosis. Advised to treat phimosis after resolution of candidiasis. Apply a thin layer of betamethasone cream to the tight ring of the foreskin twice daily and gently stretch the foreskin for few minutes after application; informed that t improvement is gradual and full retraction may take time. Follow-up with worsening or new symptoms. May referred to Urology. Verbalized understanding and agreed with the plan. (4) Phimosis: Code(s): N47.1 - Phimosis Category: Medical Plan: Plan as above. Medications: New betamethasone dipropionate 0.05% 1 appl topical BID 30 days 15 grams 1RF glipizide 5 mg PO DAILY 30 days 30 tabs 3RF fluconazole may repeat second dose 72 hrs after first dose if symptoms persist 150 mg PO Q3D 2 tabs 0RF
[2024-12-26 12:54] VITALS: BP 153/93; PULSE 93; RESP 16; TEMP 36.8; O2SAT 98; BMI 48.8
[2024-12-26 13:34] VITALS: BP 126/82
--- OUTSIDE RECORDS SUMMARY | 2024-12-26 13:51 | XMS_ITS | Clinical Summary ---
Author Organization 175 [facility] Address [address] [place] [address] Phone Care Team Providers Care Electric Truck Crane Operator Name Role Phone Bienvenido Marquez ELEMENTARY MATH TUTOR Primary Care Provider [phone] Allergies Active Allergy Reactions Criticality Noted Date [...] (diabetes mellitus), type 2 with renal complications ([facility] V24, [facility] V28) 10/08/2023 Asthma, exercise induced 10/08/2023 Chronic sinusitis 10/08/2023 Family history of diabetes mellitus 10/08/2023 Morbid obesity with body mas s index (BMI) of 50.0 to 59.9 in adult ([facility] V24, [facility] V28) 10/08/2023 Microalbuminuria 05/15/2022 Essential hypertension 12/13/2020 Anemia 05/15/2019 Crohn's disease without comp lication ([facility] V24, [facility] V28) 07/23/2016 Colitis 03/17/2016 [...] Care Team Description 12/18/2024 Telephone Pulmonolgy - [place] 175 [facility] [address] [place] [address] Karyna Garvin MD dme request [...] TUBES 6 or 7 yrs old PROCEDURE: HI TONSILLECTOMY & ADENOIDECTOMY <AGE 14 APPENDECTOMY 12/22/2014 PROCEDURE: LAPAROSCOPIC APPENDECTOMY; COMMENT: Dr Ajay Hoyos INCISIONAL HERNIA REPAIR 01/21/2021 N/A PROCEDURE: HI IMPLANT MESH OPN HERNIA RPR/DEBRIDEMENT CLOSURE; COMMENT: laparoscopic repair of incisional hernia with mesh - Dr. Jv Thompson [facility] Medical History Medical History Date Comments Asthma, exercise induced DX:Asth ma, exercise induced Allergic rhinitis DX:Allergic rh initis Chronic sinusitis DX:Chronic sin usitis Family history of diabetes mellitus 11/01/2012 DX:Family history of diabetes mellitus Hypertriglyceridemia 11/07/2012 DX:Hypertri glyceridemia Diabetes type 2, controlled (CMS/HCC V24, CMS/HCC V28) DX:Diabetes type 2, controll ed ([facility]) DM (diabetes mellitus), type 2 with renal complications (CMS/HCC V24, CMS/HCC V28) DX:DM (diabet es mellitus), type 2 with renal complications ([facility]) Microalbuminuria 05/15/2022 DX:Microalbumin uria Family [...] 1:45 PM EDT Consult Orthopedic Surgery - [place] [address] [phone] Ranjit Farnsworth DPM [address] [address] 03/19/2025 2:15 PM EDT Office Visit Pulmonolgy - [place] [address] [phone] Karyna Garvin MD [address] [address] Health Maintenance Due Date Last Done Comments [...] * Urine Albumin Creatinine Ratio (05/15/2022) Pathologist [facility] Urine Albumin Creatinine Ratio Abstracted Result [facility] Provider HEALTH MAINTENANCE Final Result * Annual BMP Blood Test (05/15/2022) Pathologist [facility] Annual BMP Blood Test Abstracted Result [facility] Provider HEALTH MAINTENANCE Final Result * Hemoglobin A1c (05/15/2022) [facility] Hemoglobin A1C 6.2 <=6.5 % Blood Venous blood specimen / Unknown Result [facility] Provider LAB BLOOD ORDERABLES Shazia l Result * (ABNORMAL) Lipid panel (05/15/2022) [facility] LDL/HDL Ratio 5(A) 0 - 4 Triglycerides 109 0 - 150 mg/dL Cholesterol 187 0 - 200 mg/dL HDL 36(A) >=40 mg/dL LDL Cholesterol 130(A) 0 - 100 mg/dL Blood Venous blood specimen / Unknown [facility] Provider LAB BLOOD ORDERABLES Shazia l Result * Colonoscopy (04/11/2020) [facility] Colonoscopy Abstracted, no interpretation Anatomical Region Laterality Modality Other [facility] Provider HEALTH MAINTENANCE Final Result * Hepatitis C Screening (01/23/2016) [facility] Hepatitis C Screening Abstracted Result [facility] Provider HEALTH MAINTENANCE Final Result from Last 3 Months or Most Recently Relevant to Health Maintenance Insurance [facility] [address] [place] [address] MEDICA[place] - [place] Care Teams Electric Truck Crane Operator Relationship Specialty Start Date End Date Bienvenido Marquez FNP [address] [place] [address] PCP - General Family Medicine 10/30/24
--- OUTSIDE RECORDS SUMMARY | 2024-12-26 13:51 | XMS_ITS | Encounter Summary ---
Author Organization [facility] Address [address] [place] [address] Care Team Providers Care Adjuster Name Role Phone Bienvenido Marquez CELESTE Primary Care Provider [phone] Reason for Visit * Reason Onset Date Comments dme request 12/18/2024 Encounter Details Date Type Department Care Team ([facility] st Contact Info) Description 12/18/2024 Telephone [facility] [address] [phone] Karyna Garvin MD 175 [facility] [address] [place] [address] dme request Social History Tobacco Use Types [...] Progress Notes * Jeny Bear MA - 12/25/2024 10:19 AM EDT Faxed and confirmation received * Jeny Bear MA - 12/18/2024 4:39 PM EDT Printed and placed in provider folder to be addressed when returns to office * Raquel Blair - 12/18/2024 2:16 PM EDT Fax received from [facility] for supply order . Will attach to encounter Nov 03/19/25 documented in this encounter Plan of Treatment Upcoming Encounters Date Type Department Care Team (Late st Contact Info) Description 01/15/2025 1:45 PM EDT Consult Orthopedic Surgery - [place] [address] [phone] Ranjit Farnsworth DPM [address] [address] 03/19/2025 2:15 PM EDT Office Visit Pulmonolgy - [place] [address] [phone] Karyna Garvin MD 175 [facility] [address] [place] [address] documented as of this encounter Visit Diagnoses Not on filedocumented in this encounter Care Teams Adjuster Relationship Specialty Start Date End Date Bienvenido Marquez FNP [address] [place] [phone] PCP - General Family Medicine 10/30/24 documented as of this encounter
== END 2024-12-26 13:29 | disposition home or self-care (01) ==
LOC: HO.HMCFM 12:47
PROVIDERS: PCP Nurse Practitioner Family; Visit Provider Nurse Practitioner Family
DX: E11.9 Type 2 diabetes mellitus without complications (principal); I10 Essential (primary) hypertension; B37.42 Candidal balanitis; N47.1 Phimosis

== ENCOUNTER → 2024-12-26 12:47 | Outpatient (BNVA) | payer OTHER, SELFPAY | PROVIDERS: PCP Nurse Practitioner Family; Visit Provider Nurse Practitioner Family | DX: E11.9 Type 2 diabetes mellitus without complications (principal); I10 Essential (primary) hypertension; B37.42 Candidal balanitis; N47.1 Phimosis | CPT/HCPCS: 99212 ==

== ENCOUNTER 2025-02-08 11:36 | Outpatient (AMB) | payer OTHER, SELFPAY ==
--- NOTE | 2025-02-08 11:40 | HO.NEPHOV_ITS ---
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 Required: No Accompanied by: Self / Same As Patient Allergies grass pollen Allergy (Mild, Verified 02/08/25 11:40) Itchy Eyes Medication List - Last Reconciled 02/08/25 by Sanford Logan MD amlodipine 10 mg PO DAILY aspirin 81 mg PO DAILY atorvastatin 20 mg PO BEDTIME 90 days azathioprine 150 mg PO DAILY betamethasone dipropionate 0.05% 1 appl topical BID 30 days fluconazole 150 mg PO Q3D glipizide 5 mg PO DAILY 30 days losartan-hydrochlorothiazide 100-25 mg 1 tab PO DAILY 90 days metformin ER 1,000 mg (2 x 500 mg) PO BID 90 days metoprolol tartrate 50 mg PO DAILY 90 days miscellaneous medical supply 1 XL BP cuff and monitor omeprazole 20 mg PO DAILY spironolactone 25 mg PO DAILY HPI Comments Details: RODNEY IS A PLEASANT 43-YEAR-OLD MAN WITH A HISTORY OF CROHN'S DISEASE AND OBESITY. HE WAS STARTED ON ANTIHYPERTENSIVE MEDICATIONS ABOUT A YEAR AGO. CURRENTLY HE IS ON 3 ANTIHYPERTENSIVE MEDICATIONS. 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 THIS WAS ESSENTIALLY UNCHANGED FROM THE IMAGING DONE IN 2019. HE IS REFERRED FOR FURTHER EVALUATION OF HYPERTENSION. 06/06/24 ;Underwent 24 hour ABP M 10/02/24 OVerall doing well Lost more weight 02/08/25 The patient is a 44-year-old male presenting with resistant hypertension management. The patient's blood pressure was noted to be slightly elevated at 140/90 mmHg during the visit, although it has been well-controlled previously. The patient does not monitor blood pressure at home and is currently on medica tions including amlodipine, losartan, hydrochlorothiazide, metoprolol, and spironolactone. The patient reports a significant weight gain, with current weight at 371 pounds, up from 360 pounds in December. This weight gain occurred before the addition of glipizide to manage high blood sugar levels. The patient experiences occasional swelling in the legs, which was not noted as significant by a private watchman recently consulted. The patient uses a CPAP machine regularly for sleep apnea and reports generally sleeping well, although recent weather changes have affected sleep quality. The patient has been using a steroid cream for a foreskin infection, which was prescribed to manage an infection and help with foreskin retraction. 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 Lungs entry equal no rales. Heart S1-S2 heard no gallop or rub. Abdomen soft nontender. Neuro alert awake oriented. No asterixis. Extremities no edema. Results Reviewed Nephrology Results: Hgb, (14.0-18.0) 13.6 g/dl L 10/05/24 WBC, (4.8-10.8) 4.8 X10*3/uL 10/05/24 Plt Count, (160-400) 268 X10*3/uL 10/05/24 Sodium, (135-145) 137 mmol/L 10/05/24 Potassium, (3.3-5.1) 3.9 mmol/L 10/05/24 Chloride, (96-108) 102 mmol/L 10/05/24 Carbon Dioxide, (22-29) 25 mmol/L 10/05/24 BUN, (9-16) 20 mg/dL H 10/05/24 Creatinine, (0.5-1.4) 0.82 mg/dL 10/05/24 Calcium, (8.4-10.2) 9.2 mg/dL 10/05/24 Urine Protein, (Neg-Trace) Trace mg/dL 10/05/24 Urine Creatinine 129.31 mg/dL 10/05/24 Assessment & Plan Assessment & Plan (1) High blood pressure: Code(s): I10 - Essential (primary) hypertension Category: Medical Qualifiers: Hypertension type: primary hypertension Qualified Code(s): I10 - Essential (primary) hypertension (2) Renal artery aneurysm: Code(s): I72.2 - Aneurysm of renal artery Category: Medical (3) Sleep apnea: Code(s): G47.30 - Sleep apnea, unspecified Category: Medical (4) Morbid obesity with BMI of 50.0-59.9, adult: Code(s): E66.01 - Morbid (severe) obesity due to excess calories; Z68.43 - Body mass index [BMI] 50.0-59.9, adult Category: Medical Plan . RODNEY HAS RESISTANT HYPERTENSION IN THE SETTING OF OBESITY OBSTRUCTIVE SLEEP APNEA AND RENAL ARTERY ANEURYSM. RENAL ARTERY ANEURYSM measures 9 mm based on recent CT scan done in 2023. This was reportedly unchanged compared to the CT scan in 2019. Continue to monitor aneurysm Refer to vascular surgeon if size increases. Keep aspirin 80 mg once a day. Resistant hypertension with a combination of above. He needs weight loss. You should continue using CPAP. Watch BP for now Based on a 24 hour ABPM , Keep spironolactone 25 mg daily. Follow renal panel with potassium Coding Level of Care Code Est Pt Level 4 (23740) Diagnoses Primary hypertension I10 Hypertension type: primary hypertension Renal artery aneurysm I72.2 Sleep apnea G47.30 Morbid obesity with BMI of 50.0-59.9, adult E66.01; Z68.43
[2025-02-08 11:41] VITALS: BP 134/100; PULSE 78; O2SAT 97; BMI 50.4
[2025-02-08 11:48] VITALS: BP 140/98
== END 2025-02-08 11:52 | disposition home or self-care (01) ==
LOC: HO.HKA 11:37
PROVIDERS: PCP Nurse Practitioner Family; Visit Provider Internal Medicine Hypertension Specialist
DX: I10 Essential (primary) hypertension (principal); I72.2 Aneurysm of renal artery; G47.30 Sleep apnea, unspecified; E66.01 Morbid (severe) obesity due to excess calories; Z68.43 Body mass index [BMI] 50.0-59.9, adult
CPT/HCPCS: 99214

== ENCOUNTER → 2025-02-08 11:36 | Outpatient (BNVA) | payer OTHER, SELFPAY | PROVIDERS: PCP Nurse Practitioner Family; Visit Provider Internal Medicine Hypertension Specialist | DX: I10 Essential (primary) hypertension (principal); I72.2 Aneurysm of renal artery; G47.30 Sleep apnea, unspecified; E66.01 Morbid (severe) obesity due to excess calories; Z68.43 Body mass index [BMI] 50.0-59.9, adult | CPT/HCPCS: 99212 ==

== ENCOUNTER 2025-05-17 11:59 | Outpatient (AMB) | payer OTHER, SELFPAY ==
[2025-05-17 11:59] VITALS: BP 144/98; PULSE 78; O2SAT 96; BMI 51.0
--- NOTE | 2025-05-17 11:59 | HO.NEPHOV_ITS ---
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 Required: No Accompanied by: Spouse Allergies grass pollen Allergy (Mild, Verified 05/17/25 12:01) Itchy Eyes Medication List - Last Reconciled 05/17/25 by Sanford Logan MD amlodipine 10 mg PO DAILY aspirin 81 mg PO DAILY atorvastatin 20 mg PO BEDTIME 90 days azathioprine 150 mg PO DAILY betamethasone dipropionate 0.05% 1 appl topical BID 30 days fluconazole 150 mg PO Q3D glipizide 5 mg PO DAILY 30 days losartan-hydrochlorothiazide 100-25 mg 1 tab PO DAILY 90 days metformin ER 1,000 mg (2 x 500 mg) PO BID 90 days metoprolol tartrate 50 mg PO DAILY 90 days miscellaneous medical supply 1 XL BP cuff and monitor omeprazole 20 mg PO DAILY spironolactone 25 mg PO DAILY HPI Comments Details: RODNEY IS A PLEASANT 43-YEAR-OLD MAN WITH A HISTORY OF CROHN'S DISEASE AND OBESITY. HE WAS STARTED ON ANTIHYPERTENSIVE MEDICATIONS ABOUT A YEAR AGO. CURRENTLY HE IS ON 3 ANTIHYPERTENSIVE MEDICATIONS. 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 THIS WAS ESSENTIALLY UNCHANGED FROM THE IMAGING DONE IN 2019. HE IS REFERRED FOR FURTHER EVALUATION OF HYPERTENSION. 06/06/24 ;Underwent 24 hour ABP M 10/02/24 OVerall doing well Lost more weight 02/08/25 The patient is a 44-year-old male presenting with resistant hypertension management. The patient's blood pressure was noted to be slightly elevated at 140/90 mmHg during the visit, although it has been well-controlled previously. The patient does not monitor blood pressure at home and is currently on medications including amlodipine, losartan, hydrochlorothiazide, metoprolol, and spironolactone. The patient reports a significant weight gain, with current weight at 371 pounds, up from 360 pounds in December. This weight gain occurred before the addition of glipizide to manage high blood sugar levels. The patient experiences occasional swelling in the legs, which was not noted as significant by a academic services coordinator recently consulted. The patient uses a CPAP machine regularly for sleep apnea and reports generally sleeping well, although recent weather changes have affected sleep quality. The patient has been using a steroid cream for a foreskin infection, which was prescribed to manage an infection and help with foreskin retraction. 05/17/25 - The patient is a 44-year-old male presenting with hypertension management. - Hypertension managed with amlodipine, losartan, hydrochlorothiazide, spironolactone. - Elevated blood pressure noted today, possibly due to rushing. - No home blood pressure monitoring due to lack of equipment. - Obesity with weight increase from 316 to 376 pounds. - Peripheral edema noted, especially after prolonged sitting. - Regular CPAP use for sleep apnea, except during a long flight. 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 Lungs entry equal no rales. Heart S1-S2 heard no gallop or rub. Abdomen soft nontender. Neuro alert awake oriented. No asterixis. Extremities no edema. Results Reviewed Nephrology Results: Hgb, (14.0-18.0) 13.6 g/dl L 10/05/24 WBC, (4.8-10.8) 4.8 X10*3/uL 10/05/24 Plt Count, (160-400) 268 X10*3/uL 10/05/24 Sodium, (135-145) 137 mmol/L 10/05/24 Potassium, (3.3-5.1) 3.9 mmol/L 10/05/24 Chloride, (96-108) 102 mmol/L 10/05/24 Carbon Dioxide, (22-29) 25 mmol/L 10/05/24 BUN, (9-16) 20 mg/dL H 10/05/24 Creatinine, (0.5-1.4) 0.82 mg/dL 10/05/24 Calcium, (8.4-10.2) 9.2 mg/dL 10/05/24 Urine Protein, (Neg-Trace) Trace mg/dL 10/05/24 Urine Creatinine 129.31 mg/dL 10/05/24 Assessment & Plan Assessment & Plan (1) High blood pressure: Code(s): I10 - Essential (primary) hypertension Category: Medical Qualifiers: Hypertension type: primary hypertension Qualified Code(s): I10 - Essential (primary) hypertension (2) Renal artery aneurysm: Code(s): I72.2 - Aneurysm of renal artery Category: Medical (3) Sleep apnea: Code(s): G47.30 - Sleep apnea, unspecified Category: Medical (4) Morbid obesity with BMI of 50.0-59.9, adult: Code(s): E66.01 - Morbid (severe) obesity due to excess calories; Z68.43 - Body mass index [BMI] 50.0-59.9, adult Category: Medical Plan . RODNEY HAS RESISTANT HYPERTENSION IN THE SETTING OF OBESITY OBSTRUCTIVE SLEEP APNEA AND RENAL ARTERY ANEURYSM. RENAL ARTERY ANEURYSM measures 9 mm based on recent CT scan done in 2023. This was reportedly unchanged compared to the CT scan in 2019. Continue to monitor aneurysm Refer to vascular surgeon if size increases. Keep aspirin 80 mg once a day. Resistant hypertension with a combination of above. He needs weight loss. You should continue using CPAP. Watch BP for now Based on a 24 hour ABPM , Keep spironolactone 25 mg daily. Follow renal panel with potassium No changes were made today Orders: Orders Basic Metabolic Panel 6 Months I10 - Essential (primary) hypertension Coding Level of Care Code Est Pt Level 4 (92060) Diagnoses Primary hypertension I10 Hypertension type: primary hypertension Renal artery aneurysm I72.2 Sleep apnea G47.30 Morbid obesity with BMI of 50.0-59.9, adult E66.01; Z68.43
== END 2025-05-17 12:09 | disposition home or self-care (01) ==
LOC: HO.HKA 11:59
PROVIDERS: PCP Nurse Practitioner Family; Visit Provider Internal Medicine Hypertension Specialist
DX: I10 Essential (primary) hypertension (principal); I72.2 Aneurysm of renal artery; G47.30 Sleep apnea, unspecified; E66.01 Morbid (severe) obesity due to excess calories; Z68.43 Body mass index [BMI] 50.0-59.9, adult
CPT/HCPCS: 99214

== ENCOUNTER → 2025-05-17 11:59 | Outpatient (BNVA) | payer OTHER, SELFPAY | PROVIDERS: PCP Nurse Practitioner Family; Visit Provider Internal Medicine Hypertension Specialist | DX: I10 Essential (primary) hypertension (principal); I72.2 Aneurysm of renal artery; G47.30 Sleep apnea, unspecified; E66.01 Morbid (severe) obesity due to excess calories; Z79.82 Long term (current) use of aspirin; Z79.899 Other long term (current) drug therapy; Z68.43 Body mass index [BMI] 50.0-59.9, adult | CPT/HCPCS: 99212 ==

== ENCOUNTER 2025-06-27 10:43 | Outpatient (AMB) | payer OTHER, SELFPAY ==
--- NOTE | 2025-06-27 10:45 | MHC.PC.OV ---
Vital Signs 06/27/25 10:50 06/27/25 11:43 Height 6 ft BMI Reason not done Patient refused/unable BP 162/80 H 160/88 H Blood Pressure Location Lt brachial Lt brachial Position Sitting Sitting Respiration 14 Pulse 93 Pulse Source Pulse Oximeter Temp 97.2 F Temp Source Oral Pulse Oximetry (%) 98 Oxygen Delivery Method Room Air Intake Visit Reasons: LYNDA/Lama DM/HTN Intake Note: LYNDA to establish care. Follow up on htn and dm. Sewer Repairer Required: No Allergies grass pollen Allergy (Mild, Verified 06/27/25 11:05) Itchy Eyes Medication List - Last Reconciled 06/27/25 by Adai Leslie, [facility]- amlodipine 10 mg PO DAILY aspirin 81 mg PO DAILY atorvastatin 20 mg PO BEDTIME 90 days azathioprine 150 mg PO DAILY betamethasone dipropionate 0.05% 1 appl topical BID 30 days fluconazole 150 mg PO Q3D glipizide 5 mg PO DAILY 30 days losartan-hydrochlorothiazide 100-25 mg 1 tab PO DAILY 90 days metformin ER 1,000 mg (2 x 500 mg) PO BID 90 days metoprolol tartrate 50 mg PO DAILY 90 days miscellaneous medical supply 1 XL BP cuff and monitor omeprazole 20 mg PO DAILY spironolactone 25 mg PO DAILY Tobacco use date assessed: 06/27/25 Dental Screening Dental Screen Date: 06/27/25 Did you have a dental visit in the last 12 months?: Yes Did you have a dental problem in the last 6 months where you did not have access to dental care?: No Was dental information given to patient?: Patient has dentist HPI HPI Comments History of Present Illness Details 44 y/o M with Crohns, obesity, HTN, L renal artery aneurysm, NEREYDA on CPAP, barretts esoph, Fhx skin ca (both parents), allergic rhinitis, chronic sinusitis, DM2, anemia, RODO, microalbuminuria, Vit Def, Fatty liver, ED, Venous insuff w/ Lower ext edema , HLD s/p hernia, appy, tonsils, Social: looking for work; lives w/ and son 17 Health Maintenance Colon 2019 tubular adenoma TDAP 2024 Flu 06/26/25 Specialists GI [facility] reports DME done at [facility] 2024 needs new referral going fwd d/t insurance change >> [facility] History of Present Illness The patient is a 44-year-old male presenting to establish care and for management of multiple chronic conditions, including a primary complaint of knee pain. Previous PCP [facility] records reviewed. Chronic Knee Pain L: - The patient reports a long-standing history of left knee pain. - He has undergone physical therapy and uses a brace, which he does not always find helpful. - He avoids medications like ibuprofen due to his kidney condition but would like something to help PRN - Consulted w ortho in the past;not interested in current referral. Type 2 Diabetes Mellitus w/complication of HLD, HTN and microalb. - The patient has a history of type 2 diabetes mellitus, with a recent HbA1c of 9.0%. - His prescribed medications include metformin 1000 mg twice a day and glypizide 5 mg daily. - He reports recent non-adherence to his medications due to a busy schedule while job searching. Hypertension: - The patient has a history of hypertension and is prescribed amlodipine 10 mg, losartan-hydrochlorothiazide 100-25 mg, metoprolol 50 mg daily, and spironolactone 25 mg daily. - He admits to recent poor adherence to his blood pressure medications, therefore his BP is above goal today. Chronic Medical Conditions: - Other significant past medical history includes Crohn's disease managed by gastroenterology, obesity, obstructive sleep apnea treated with a CPAP machine, Trejo's esophagus treated with omeprazole, hyperlipidemia treated with atorvastatin, generalized anxiety disorder, anemia, microalbuminuria, and vitamin D deficiency. - He also takes aspirin 81 mg daily. - He is followed by specialists in pulmonology, gastroenterology, renal, and dermatology. Past Medical History - Crohn's disease, managed by gastroenterology - Obesity - Hypertension - Obstructive sleep apnea, uses CPAP - Trejo's esophagus - Type 2 diabetes mellitus - Hyperlipidemia - Generalized anxiety disorder - Anemia - Microalbuminuria - Vitamin D deficiency Review of Systems - Musculoskeletal: Reports chronic left knee pain. - ENT: Reports concerns about bilateral cerumen impaction. Physical Exam General: Well developed, well nourished, in no acute distress. Appears stated age. Obese Head: Normocephalic, atraumatic. Eyes: Pupils are equal, round and reactive to light and accommodation. Conjunctivae are clear. Ears: cerumen impaction bilat cleared w/ lavage, TM intact & clear Lungs: Dim throughout Heart: Regular rate and rhythm. No murmurs, click, rubs or gallops are noted. Psych: Mood and affect appropriate. Patient has a history of generalized anxiety disorder. Results - HBA1C: 9.0% today Medical Decision Making The patient is a 44-year-old male with a complex medical history, including poorly controlled type 2 diabetes and hypertension, who presents to [facility] care. His chief complaint is chronic left knee pain, but oral NSAIDs are contraindicated given his history of microalbuminuria and follow-up with nephrology. Therefore, a trial of voltaren was initiated as a safer alternative for symptomatic relief. His diabetes is severely uncontrolled, evidenced by an HbA1c of 9.0%, which he attributes to recent medication non-adherence due to life stressors. Similarly, he has been non-adherent with his multi-drug antihypertensive regimen. The primary intervention is to improve medication adherence by refilling all prescriptions and counseling the patient on simplifying his regimen, such as taking his metformin dose once daily. Health maintenance was addressed by administering an influenza vaccine and ordering baseline labs and a urine to assess his glycemic control and renal status, despite his non-fasting state. A referral was placed for a diabetic eye exam, a critical component of his diabetes care. A follow-up visit is scheduled for October for a complete physical, with repeat labs ordered beforehand to evaluate his response to restarting his medications. Plan 1. Type 2 Diabetes Mellitus With Hyperglycemia & other complications - Recent HbA1c was 9.0%, indicating poor control, which the patient attributes to medication non-adherence. - Refilled and advised patient to restart metformin 1000 mg BID and glypizide 5 mg daily. - Counseled patient that metformin 2000 mg can be taken once daily to improve adherence. - Ordered baseline bloodwork, including diabetes-related labs. - Placed a referral for a diabetic eye exam. - active w/ podiatry for foot exams 2. Hypertension - Patient reports non-adherence to his antihypertensive medications. - Refilled prescriptions for amlodipine 10 mg, losartan-HCTZ 100-25 mg, metoprolol 50 mg, and spironolactone 25 mg and instructed the patient to restart taking them. 3. Chronic Left Knee Pain - Prescribed topical voltaren to be applied up to four times daily as needed, as an alternative to oral NSAIDs, given the patient's kidney condition. 4. Crohns cont Azathioprine and fu with GI. Stable @ this time, 5. Cerumen impaction ears flushed today. 4. Health Maintenance - Administered influenza vaccine during the visit. - Ordered labs and a urine sample for annual kidney screening and to establish a baseline today - Follow-up scheduled in October for a complete physical exam w/repeat labs done 1 week before. - Plan to repeat labs one week prior to the October visit to assess progress. Patient Instructions - Apply the prescribed cream to your knee and any other sore joints up to four times a day as needed for pain. - It is very important to restart all your prescribed daily medications for blood pressure and diabetes. - To make it easier, you can take all of your metformin pills at one time in the morning. - Please go to a lab to have blood work and a urine test done. You do not need to be fasting for these tests. - You will receive a flu shot today in the office. - We are referring you to an eye doctor for a yearly diabetic eye exam. Please schedule this appointment. - Your next full physical exam will be in October. Please have your lab work repeated one week before that appointment. - Please use the patient portal to message us with any questions or if you need an appointment sooner. Consent Patient was informed and verbally consented to the use of an ambient scribe for clinic note documentation during this visit. Total time spent caring for the patient today was 45 minutes. This includes time spent before the visit reviewing the chart, time spent during the visit, and time spent after the visit on documentation, reviewing laboratory results, diagnostic imaging, medications, performing a medically necessary evaluation, counseling on diagnoses, care coordination, ordering appropriate tests, ordering appropriate medications, review of tests performed by other providers, reporting test results with the patient, communication with other healthcare providers. [facility] Medical History (Updated 06/27/25 @ 11:49 by CELESTE Navarro-SONIA) Asthma Trejo esophagus Chronic pain of left knee High blood pressure High cholesterol Hx of Crohn's disease Mild anemia Sinusitis Surgical History (Updated 06/26/25 @ 08:21 by CELESTE Navarro-SONIA) H/O hernia repair Hx of appendectomy Hx of tonsillectomy Family History Mother High blood pressure High cholesterol Diabetes Skin cancer Father High blood pressure Skin cancer Maternal Grandmother Diabetes Social History Housing: Other Alcohol intake: current Patient Tobacco Use Status: Former Tobacco user e-Cigarette/Vaping Use: Never Used Second Hand Smoke Exposure: No service: No Current occupational status: employed 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 1. Little interest or pleasure in doing things: not at all 2. Feeling down, depressed, or hopeless: not at all 3. Trouble falling or staying asleep, or sleeping too much: not at all 4. Feeling tired or having little energy: not at all 5. Poor appetite or overeating: not at all 6. Feeling bad about yourself - or that you are a failure or have let yourself or your family down: not at all 7. Trouble concentrating on things, such as reading the newspaper or watching television: not at all 8. Moving or speaking so slowly that other people could have noticed. Or the opposite - being so fidgety or restless that you have been moving around a lot more than usual: not at all 9. Thoughts that you would be better off or of hurting yourself in some way: not at all Total score: 0 Depression Screening Interpretation: Negative Depression Screening Done: Yes 02852 - PHQ-9 Billing: Yes Source: Developed by Drs. Jordi Dominguez, Amy Alatorre, Torres Godinez and colleagues, with an educational tuan from [employer]. Thrive Questionnaire Date Thrive assessed: 06/27/25 I am a: Patient What is your living situation today?: I have a steady place to live Within the past 12 months, did the food you bought not last and you didn't have the money to get more?: Never true Within the past 12 months, did you worry whether your food would run out before you got money to buy more?: Never true Do you have trouble paying for medicines?: No Do you have trouble getting transportation to medical appointments?: No Do you have trouble paying your heating and electricity bill?: No Do you have trouble taking care of your child, family member or friend?: No Do you have trouble with day-to-day activities such as bathing, preparing meals, shopping, managing finances, etc.?: No Are you currently unemployed and looking for a job?: No Are you interested in more education?: No Please select the resources that you would like help with: None Currently or been in a relationship where the following occur: No concerns reported THRIVE Score: 0 AUDIT C Alcohol Use Questionnaire (AUDIT-C) 1. How often do you have a drink containing alcohol?: Never 3. How often do you have six or more drinks on one occasion?: Never Total Score: 0 Score Reviewed/Action Taken: Yes RODO-7 AMB Questionnaire RODO-7 Date RODO - 7 assessed: 06/27/25 Feeling nervous, anxious, or on edge: 0 = Not at all Not being able to stop or control worryin = Not at all Worrying too much about different things: 0 = Not at all Trouble relaxin = Not at all Being so restless that it is hard to sit still: 0 = Not at all Becoming easily annoyed or irritable: 0 = Not at all Feeling afraid as if something awful might happen: 0 = Not at all Total RODO-7 score (0-4 normal; 5-9 mild; 10-14 moderate; 15-21 severe): 0 Source: Developed by Drs. Jordi Dominguez, Amy Alatorre, Torres Godinez and colleagues, with an educational tuan from [employer]. RODO-7 Assessment Billing RODO-7 Assessment Tool: RODO-7 Assessment 80808 Physical exam (Primary Care) Vital Signs: Last Vital Signs Temp 97.2 F 06/27/25 10:50 Pulse 93 06/27/25 10:50 Resp 14 06/27/25 10:50 BP 162/80 H 06/27/25 10:50 Pulse Ox 98 06/27/25 10:50 Oxygen Delivery Method Room Air 06/27/25 10:50 BMI Assessment/Plan discussion: High BMI High, discussed plan: lifestyle Tobacco/Smoking Status: Tobacco use Status Tobacco use date assessed 06/27/25 06/27/25 10:49 Patient Tobacco Use Status Former Tobacco user 06/27/25 10:49 e-Cigarette/Vaping Use Never Used 06/27/25 10:49 PHQ-9: PHQ-9 Score PHQ-9: Total score 0 06/27/25 11:12 Depression Screening Interpretation: Negative Thrive Assessment: Date of Thrive Assessment Date Thrive assessed 06/27/25 06/27/25 10:49 Currently or been in a relationship where the following occur: No concerns reported Office Procedures Cerumen Removal From which ear canal was the cerumen removed: bilateral Removal: irrigation Notes: patient tolerated procedure well, no complications and ear canal clear 32338-[id number] Irrigation/Lavage Flu Questionnaire Does the patient have a severe egg allergy?: No Does the patient have severe life threatening allergies?: No Does the patient have a fever or illness today?: No Has the patient ever had Guillain-[place] Syndrome?: No Has the patient ever had any past reaction to a flu shot?: No Results AMB Hemoglobin A1c AMB Hemoglobin A1c 9.0 % Last Edit by Fly Latham MA on 06/27/25 11:00 Immunizations Fluarix [id number] (PF) 45 mcg (15 mcg x 3)/0.5 mL IM syringe Performing Provider: RITU Navarro Performing Location: [facility] Administered by: Fly Latham MA on 06/27/25 11:37 Dose Route Admin Location Dispensed Lot Number Expiration Date IDC Pick Up Man 0.5 mL IM Left Deltoid 0.5 mL [id number] 02/05/26 [id number] DripDrop VIS Given Date VIS Provided VIS Publication Date 06/27/25 Single Vaccine 24 Eligibility Eligibility Date Funding Source Not [facility] Eligible 06/27/25 Private Results Reviewed Results Reviewed: Laboratory Last Values Hgb A1c (Clinic) 9.0 % (4.0-6.0) H 06/27/25 10:55 Coding Level of Care Code Est Pt Level 5 (58228) Complex EM visit Add On G2211 Diagnoses Encounter to establish care with new provider Z76.89 Diabetes mellitus type 2 with complications E11.8 Primary hypertension I10 Hypertension type: primary hypertension High cholesterol E78.00 Microalbuminuria due to type 2 diabetes mellitus E11.29; R80.9 Vitamin D deficiency E55.9 Influenza vaccination administered at current visit Z23 Chronic patellofemoral pain of left knee M25.562; G89.29 Impacted cerumen, bilateral H61.23 Crohn's disease of large intestine without complication K50.10 Digestive disease complication type: without complication Gastrointestinal tract location: large intestine Renal artery aneurysm I72.2 CPT Codes Office Procedure - CPT: 23962-Fez Irrigation/Lavage ([id number]) Additional Codes RODO-7 Assessment Billing - RODO-7 Assessment Tool: RODO-7 Assessment 82044 ([id number]) PHQ-9 - 71734 - PHQ-9 Billing: Yes ([id number]) Assessment & Plan Assessment & Plan (1) Encounter to establish care with new provider: Code(s): Z76.89 - Persons encountering health services in other specified circumstances (2) Diabetes mellitus type 2 with complications: Comment: HLD, HTN, MICROALBUMINURIA Code(s): E11.8 - Type 2 diabetes mellitus with unspecified complications Category: Medical (3) High blood pressure: Code(s): I10 - Essential (primary) hypertension Category: Medical Qualifiers: Hypertension type: primary hypertension Qualified Code(s): I10 - Essential (primary) hypertension (4) High cholesterol: Code(s): E78.00 - Pure hypercholesterolemia, unspecified Category: Medical (5) Microalbuminuria due to type 2 diabetes mellitus: Code(s): E11.29 - Type 2 diabetes mellitus with other diabetic kidney complication; R80.9 - Proteinuria, unspecified Category: Medical (6) Vitamin D deficiency: Code(s): E55.9 - Vitamin D deficiency, unspecified Category: Medical (7) Influenza vaccination administered at current visit: Onset Date: ~06/27/25 Code(s): Z23 - Encounter for immunization Category: Medical (8) Chronic patellofemoral pain of left knee: Code(s): M25.562 - Pain in left knee; G89.29 - Other chronic pain Category: Medical (9) Impacted cerumen, bilateral: Code(s): H61.23 - Impacted cerumen, bilateral (10) Crohn disease: Comment: [facility] GI Code(s): K50.90 - Crohn's disease, unspecified, without complications Category: Medical Qualifiers: Digestive disease complication type: without complication Gastrointestinal tract location: large intestine Qualified Code(s): K50.10 - Crohn's disease of large intestine without complications (11) Renal artery aneurysm: Comment: LEFT 9MM MONITORED BY RENAL C RENAL Code(s): I72.2 - Aneurysm of renal artery Category: Medical Plan . Orders: Orders AMB Hemoglobin A1c Today E11.8 - Type 2 diabetes mellitus with unspecified complications, Z13.9 - Encounter for screening, unspecified Complete Blood Count no Diff Today E11.29 - Type 2 diabetes mellitus with other diabetic kidney complication, E11.8 - Type 2 diabetes mellitus with unspecified complications, E55.9 - Vitamin D deficiency, unspecified, E78.00 - Pure hypercholesterolemia, unspecified, I10 - Essential (primary) hypertension, R80.9 - Proteinuria, unspecified Lipid Panel Today E11.29 - Type 2 diabetes mellitus with other diabetic kidney complication, E11.8 - Type 2 diabetes mellitus with unspecified complications, E55.9 - Vitamin D deficiency, unspecified, E78.00 - Pure hypercholesterolemia, unspecified, I10 - Essential (primary) hypertension, R80.9 - Proteinuria, unspecified TSH reflex Free T4 Today E11.29 - Type 2 diabetes mellitus with other diabetic kidney complication, E11.8 - Type 2 diabetes mellitus with unspecified complications, E55.9 - Vitamin D deficiency, unspecified, E78.00 - Pure hypercholesterolemia, unspecified, I10 - Essential (primary) hypertension, R80.9 - Proteinuria, unspecified Vitamin D 25-OH Total Today E11.29 - Type 2 diabetes mellitus with other diabetic kidney complication, E11.8 - Type 2 diabetes mellitus with unspecified complications, E55.9 - Vitamin D deficiency, unspecified, E78.00 - Pure hypercholesterolemia, unspecified, I10 - Essential (primary) hypertension, R80.9 - Proteinuria, unspecified Influenza [id number] Immunization Today Z23 - Encounter for immunization Comprehensive Met. Panel Today E11.29 - Type 2 diabetes mellitus with other diabetic kidney complication, E11.8 - Type 2 diabetes mellitus with unspecified complications, E55.9 - Vitamin D deficiency, unspecified, E78.00 - Pure hypercholesterolemia, unspecified, I10 - Essential (primary) hypertension, R80.9 - Proteinuria, unspecified Microalbumin, Random (w Creat) Today E11.29 - Type 2 diabetes mellitus with other diabetic kidney complication, E11.8 - Type 2 diabetes mellitus with unspecified complications, E55.9 - Vitamin D deficiency, unspecified, E78.00 - Pure hypercholesterolemia, unspecified, I10 - Essential (primary) hypertension, R80.9 - Proteinuria, unspecified Prostate Specific Antigen Scr Today E11.29 - Type 2 diabetes mellitus with other diabetic kidney complication, E11.8 - Type 2 diabetes mellitus with unspecified complications, E55.9 - Vitamin D deficiency, unspecified, E78.00 - Pure hypercholesterolemia, unspecified, I10 - Essential (primary) hypertension, R80.9 - Proteinuria, unspecified Vitamin B12 and Folate Today E11.29 - Type 2 diabetes mellitus with other diabetic kidney complication, E11.8 - Type 2 diabetes mellitus with unspecified complications, E55.9 - Vitamin D deficiency, unspecified, E78.00 - Pure hypercholesterolemia, unspecified, I10 - Essential (primary) hypertension, R80.9 - Proteinuria, unspecified Hemoglobin A1c Today E11.29 - Type 2 diabetes mellitus with other diabetic kidney complication, E11.8 - Type 2 diabetes mellitus with unspecified complications, R80.9 - Proteinuria, unspecified Lipid Panel 10/07/25 E11.29 - Type 2 diabetes mellitus with other diabetic kidney complication, E11.8 - Type 2 diabetes mellitus with unspecified complications, R80.9 - Proteinuria, unspecified Comprehensive Met. Panel 10/07/25 E11.29 - Type 2 diabetes mellitus with other diabetic kidney complication, E11.8 - Type 2 diabetes mellitus with unspecified complications, R80.9 - Proteinuria, unspecified Microalbumin, Random (w Creat) 10/07/25 E11.29 - Type 2 diabetes mellitus with other diabetic kidney complication, E11.8 - Type 2 diabetes mellitus with unspecified complications, R80.9 - Proteinuria, unspecified Referrals Ophthalmology Referral E11.8 - Type 2 diabetes mellitus with unspecified complications, I10 - Essential (primary) hypertension Medications: New diclofenac sodium 1% (Voltaren Arthritis Pain) apply to single knee, ankle, foot; for foot includes sole/toes/top of foot 4 grams topical QID 100 grams 2RF omeprazole 20 mg PO DAILY 90 caps 2RF Changed From glipizide 5 mg PO DAILY 30 days 30 tabs 3RF To glipizide 5 mg PO DAILY 90 tabs 1RF From metformin ER 1,000 mg (2 x 500 mg) PO BID 90 days 360 tabs 1RF To metformin ER 2,000 mg (4 x 500 mg) PO DAILY 360 tabs 1RF 90 days Refilled atorvastatin 20 mg PO BEDTIME 90 tabs 1RF 90 days metoprolol tartrate 50 mg PO DAILY 90 tabs 1RF 90 days spironolactone 25 mg PO DAILY 90 tabs 1RF amlodipine 10 mg PO DAILY 90 tabs 1RF losartan-hydrochlorothiazide 100-25 mg 1 tab PO DAILY 90 tabs 1RF 90 days Discontinued fluconazole may repeat second dose 72 hrs after first dose if symptoms persist Discontinued Reason: Patient Completed Course 150 mg PO Q3D 2 tabs 0RF Patient Instructions: Walk-In Care (Urgent Care): We Make it Easy Walk-in for urgent medical issues such as: ? Seasonal Allergies ? Insect Bites ? Cough ? Diarrhea ? Acute Asthma Attacks ? Back, Knee or Joint Pain ? Ear Infection ? Fever without a Rash ? Headaches ? Nausea ? [place] [facility], Rash or Skin Irritation ? Sore Throat ? Sports Physicals ? Vomiting Most insurances are accepted. Patients do not need to be part of the [facility] to seek care at the walk-in clinic. Locations [address] [place] [address] Open Wednesday through Wednesday 8am-5pm *Hours may vary due to staffing availability. To confirm Walk-In Care hours please call. [facility] , [place] [address] ? [phone] [facility] Walk-In Care in [place] provides services to ages 18 and over. Open Wednesday-Wednesday: 7 a.m. to 5 p.m. and Wednesday: 9 a.m. to 3 p.m.* *Hours may vary due to staffing availability. To confirm Walk-In Care hours in [place], please call [phone]. [address] [place] [id number] ? [phone] [facility] Walk-In Care in [place] provides services to ages 12 and over. Open Wednesday-Wednesday: 8 a.m. to 5 p.m. Hours may vary due to staffing availability. To confirm Walk-In Care hours in [place], please call [phone]. LABORATORY SERVICES: [facility] Lab ? Primary Location [address] [place] [address] Wednesday through Wednesday 6:00 AM ? 5:00 PM Wednesday 7:00 AM ? 11:00 AM* [phone] The [facility] Lab is centrally located near the front entrance of the [facility] Center for easy outpatient access. Convenient parking is provided for outpatients. *Hours may vary due to staffing availability. To confirm Laboratory hours for any location, please call [phone]. Offsite Location For your convenience, we offer offsite laboratory draw stations at the following locations: [address] [place] [address] ? [facility] [address] 10 [facility], [address] Wednesday through Wednesday 7:30 AM ? 1:00 PM* [phone] *Hours may vary due to staffing availability. To confirm Laboratory hours for any location, please call [phone]. [place] ? [address] Wednesday through Wednesday 6:00 AM ? 3:30 PM* Wednesday 6:30 AM ? 3 PM* [phone] *Hours may vary due to staffing availability. To confirm Laboratory hours for any location, please call [phone] [place] [address] Wednesday through Wednesday 7:30 AM ? 4:00 PM* [phone] *Hours may vary due to staffing availability. To confirm Laboratory hours for any location, please call [phone] [place] [address] Wednesday through 9:00 AM ? 4:00 PM* *Hours may vary due to staffing availability. To confirm Laboratory hours for any location, please call [phone]. Appointments are not necessary. Walk-ins are welcome. Like all the departments throughout the [facility], our Lab undergoes frequent reviews to ensure the quality and accuracy of test results, and our staff takes special pride in its status as a nationally accredited facility. Patient Portal: [facility] ONE PATIENT. ONE RECORD. BETTER CARE. [facility] has a fully integrated, cutting-edge mobile electronic health information system that has revolutionized the way we care for our patients and manage our organization. This system improves communication and coordination enabling us to provide safe, higher-quality care, and an overall positive experience for staff and patients. Our first priority, as always, is to deliver the highest quality care possible. The system is running in the background supporting that priority. This portal is for all [facility] services and practices. If you are experiencing any technical difficulties with enrolling or logging into the Patient Portal please complete the [facility] Patient Portal Technical Support Form. [facility] now offers a new secure on-line interactive tool for patients to review their health information ? ?Patient Portal. This interactive web portal will enable patients and their families to take an active role in their care by providing easy, secure access to their health information via the internet. The Patient Portal provides patients with instant access to their health information, including laboratory results, medications, allergies, demographic information, visit history, and more. In addition to managing their own care, parents and health care proxies with authorized consent will appreciate the ability to access the records of those individuals for whom they provide care. Please note: if you wish to gain access (Proxy) to another patient?s portal, you will be required to come to the Medical Records Department in person at [facility]. Both the patient giving proxy access and the proxy will need to provide photo identification and complete the appropriate authorization. The Patient Portal also allows track their appointments online. The [facility] Patient Portal also saves patients time by allowing them to submit updates to their demographic and contact information prior to their visits. Portal email notifications will also alert patients to any new activity on their portal, such as test results and new appointments. In order to initially enroll in the [facility] Patient Portal, you will need to enter some required information including the following: your [facility] Medical Record number your personal home email address name date of Please note: In order to enroll in the [facility] Patient Portal, we need to have your email address on file in your electronic medical record. ?The email address needs to be specific for one person (yourself) in order for your Portal enrollment to be successful. ?You can update your email address in person with our Registration staff when you are registering for a hospital visit. ?Otherwise, you will need to come to the Health Information Management (Medical Records) Department at [facility]. ?We are open from Wednesday ? Wednesday from 7:30 a.m. ? 4:30 p.m. ?You will be required to present a photo id. Once you have successfully enrolled in the Patient Portal, you will receive a one-time user id and password for the Portal, sent to your email address. ?This will allow you to log into the Patient Portal within 99 hrs and reset your own logon id and password, and define personal security questions. ?Once your permanent login and password have been set, you can log into the [facility] Patient Portal at any time via the blue button above or from the Portal Logon button on any page of the [facility] website. [facility] encourage all of our patients to enroll in Patient Portal as it presents a valuable opportunity for patients and their families to actively participate in their care and stay healthy Welcome to [facility]. ?We look forward to working with you.
[2025-06-27 10:50] VITALS: BP 162/80; PULSE 93; RESP 14; TEMP 36.2; O2SAT 98
[2025-06-27 11:43] VITALS: BP 160/88
--- OUTSIDE RECORDS SUMMARY | 2025-06-27 21:06 | XMS_ITS | Clinical Summary ---
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, without long-term current use of insulin ([facility]) USE TO TEST BLOOD SUGAR ONCE DAILY 100 Strip 1 10/24/2021 Active FreeStyle Lancets MiscIndications:Contr olled type 2 diabetes mellitus with diabetic nephropathy, without long-term current use of insulin ([facility]) Use to test blood sugar once daily [...] EVERY DAY 90 Tablet 0 07/28/2023 Active losartan-hydrochlorot hiazide (HYZAAR) 50-12.5 MG per tablet TAKE 1 TABLET BY MOUTH EVERY DAY 90 Tablet 0 07/28/2023 Active ALBUTEROL SULFATE (ProAir HFA) 108 (90 Base) MCG/ACT Aero SolnIndications:NEREYDA on CPAP,Mild intermittent asthma, unspecified whether complicated Inhale 2 Puffs into the lungs every 6 hours as needed for Cough, Wheezing or Shortness of Breath. 1 g 11 03/09/2024 Active Active Problems Problem Noted Date Microalbuminuria [...] 66 03/09/2024 9:42 AM EDT Temperature 35.9 C (96.6 F) 03/09/2024 9:42 AM EDT Respiratory Rate 20 03/09/2024 9:42 AM EDT [...] Tdap) 11/01/2022 11/01/2012, 08/09/2002 DIABETES/HEART DISEASE: MASHA AL CHOLESTEROL (LDL) 05/15/2023 05/15/2022, 11/18/2020, 08/13/2020, Additional history exists DIABETES: ANNUAL URINE PROTE IN TEST (MICROALBUMIN) 05/15/2023 05/15/2022, 11/18/2020 BMI CHECK/ADVISE 08/09/2024 06/16/2022, , 08/28/2021, Additional history exists Covid-19 Vaccine (2022- 4 season) 2025 07/11/2021, 11/08/2020, 11/08/2020, Additional history exists INFLUENZA (#1) 2025 05/10/2022, 04/10, 05/03/2021, Additional history exists COLON CANCER SCREENING 04/11/2025 04/11/2020, 2015 Care Teams Furrier Designer Relationship Specialty Start Date End Date Jong Olivia MD [address] [place] [id number] PCP - General Internal Medicine 07/08/22
--- OUTSIDE RECORDS SUMMARY | 2025-06-27 21:06 | XMS_ITS | Clinical Summary ---
Author Organization [address] [facility] Address [address] [place] [address] Phone Care Team Providers Care Brancher Name Role Phone Bienvenido Marquez CELESTE Primary Care Provider [phone] Allergies Active Allergy Reactions Criticality Noted Date [...] HFA) 90 mcg/actuation inhaler Inhale 2 puffs by mouth every 6 (six) hours if needed for [...] Inhale into the lungs. SMS-pressure 15 Active glipiZIDE (GLUCOTROL) 5 mg tablet Take 1 tablet (5 mg total) by mouth 1 (one) time each day. 5 Active metoprolol tartrate (LOPRESSOR) 50 mg tablet Take 1 tablet (50 mg total) by mouth 1 (one) time each day. 5 Active sildenafiL (VIAGRA) 100 mg tablet Take 1 tablet (100 mg total) by mouth if needed. 9 Active spironolactone (ALDACTONE) 25 mg tablet Take 1 tablet (25 mg total) by mouth 1 (one) time each day. 5 Active aspirin 81 mg EC tablet Take 1 tablet (81 mg total) by mouth 1 (one) time each day. 5 Active Active Problems Problem Noted Date Diagnosed Date DM (diabetes mellitus), type 2 with renal complications ([facility] [employer] V24, [facility] V28) 10/08/2023 Asthma, exercise induced 10/08/2023 Chronic sinusitis 10/08/2023 Family history of diabetes mellitus 10/08/2023 Morbid obesity with body mas s index (BMI) of 50.0 to 59.9 in adult ([employer] [facility] [employer] V24, [facility] V28) 10/08/2023 Microalbuminuria 05/15/2022 Essential hypertension 12/13/2020 Anemia 05/15/2019 Crohn's disease without comp lication ([facility] [employer] V24, [facility] V28) 07/23/2016 Colitis 03/17/2016 Overview (10/08/2023): Possibly Crohn's Tubular adenoma of colon 12/26/2015 Overview (10/08/2023): On colonoscopy 12/26/15; CN q 5 yrs Obstructive sleep apnea hypopnea, severe 016 Overview (10/08/2023): No-show for ENT appointment N/S for Pulmo 03/30/2016 Vitamin D deficiency 10/25/2015 Fatty liver 01/14/2015 Hyperlipidemia, mixed 11/07/2012 Anxiety 10/07/2010 Allergic rhinitis 10/07/2010 Immunizations Immunization Administration Dates Next Due Influenza Quadravalent, MDCK [...] TUBES 6 or 7 yrs old PROCEDURE: ME TONSILLECTOMY & ADENOIDECTOMY <AGE 12 APPENDECTOMY 12/22/2014 PROCEDURE: LAPAROSCOPIC APPENDECTOMY; COMMENT: Dr Ajay Hoyos INCISIONAL HERNIA REPAIR 01/21/2021 N/A PROCEDURE: ME IMPLANT MESH OPN HERNIA RPR/DEBRIDEMENT CLOSURE; COMMENT: laparoscopic repair of incisional hernia with mesh - Dr. Jv Thompson [facility] Medical History Medical History Date Comments Asthma, exercise induced DX:Asth ma, exercise induced Allergic rhinitis DX:Allergic rh initis Chronic sinusitis DX:Chronic sin usitis Family history of diabetes mellitus 11/01/2012 DX:Family history of diabetes mellitus Hypertriglyceridemia 11/07/2012 DX:Hypertri glyceridemia Diabetes type 2, controlled ([facility] V24, [facility] V28) DX:Diabetes type 2, controll ed (HCC) DM (diabetes mellitus), type 2 with renal complications (CMS/HCC V24, CMS/HCC V28) DX:DM (diabet es mellitus), type 2 with renal complications (HCC) Microalbuminuria 05/15/2022 DX:Microalbumin uria Family History Medical [...] Tobacco: Former Tobacco Cessation:Counseling Given: Not Answered Alcohol Use Standard Drinks/Week Comments Yes 0 [...] Pressure 132/90 03/09/2024 9:42 AM EDT Pulse 79 03/19/2025 1:44 PM EDT Temperature 37 C (98.6 F) 03/19/2025 1:44 PM EDT Respiratory Rate 20 03/19/2025 1:44 PM EDT Oxygen Saturation 98% 03/19/2025 1:44 PM EDT Inhaled Oxygen Concentration - - Weight 167 kg (368 lb) 03/19/2025 1:44 PM EDT Height 180.3 cm (5' 11 ) 03/19/2025 1:44 PM EDT Body Mass Index 51.33 03/19/2025 1:44 PM EDT Plan of Treatment Upcoming Encounters Date Type Department Care Team (Late st Contact Info) Description 09/19/2025 8:30 AM EST Office Visit Pulmonology - [address] [place] [address] Karyna Garvin MD [address] [place] [phone] 01/15/2026 1:45 PM EDT Office Visit Orthopedic Surgery - [place] [address] [facility] [address] [place] [phone] Ranjit Farnsworth, [place] [address] [facility] [address] [place] [address] Health Maintenance Due Date Last Done Comments Diabetes: Annual Retina Eye Exam 1992 Hepatitis B Vaccines (1 of 3 - 19+ 3-dose series) 2001 Pneumococcal Vaccine: Pediatrics (0 to 5 Years) and At-Risk Patients (6 to 49 Years) (1 of 2 - PCV) 2001 HPV Vaccines (1 - Risk 3-dose SCDM series) 2009 Diabetes: Annual Foot Exam 02/25/2022 02/25/2021 HIV Screening 07/18/2022 Social Influencers of Health Screening 07/18/2022 Diabetes: Blood Sugar Control Test (HGBA1C) 11/13/2022 05/15/2022, 05/15/2022 Diabetes: Annual Urine Albumin-Creatinine Ratio (uACR) 05/15/2023 05/15/2022, 05/15/2022 Diabetes: Annual GFR (Glomerular Filtration Rate) 05/15/2023 05/15/2022 Hypertension/CHF/CAD Annual BMP Blood Test 05/15/2023 05/15/2022 Depression Screening 08/09/2024 COVID-19 Vaccine ( season) 2025 07/11/2021, 11/08/2020, 10/08/2020 Influenza Vaccine (#1) 2025 , 05/30/2023, 05/10/2022, Additional history exists Colorectal Cancer Screening: Colonoscopy 04/11/2025 04/11/2020 Cholesterol Screening (Lipid Panel) 05/15/2027 05/15/2022, 05/15/2022 DTaP,Tdap,and Td Vaccines (4 - Td or Tdap) 10/11/2034 10/11/2024, 11/01/2012, 08/09/2002 RSV Immunization Adult Patients (1 - 1-dose 75+ series) 2057 Hepatitis C Screening Completed 01/23/2016 HIB Vaccines [...] * Urine Albumin Creatinine Ratio (05/15/2022) Pathologist [facility] Urine Albumin Creatinine Ratio Abstracted Historical Provider HEALTH MAINTENANCE Final Result * Annual BMP Blood Test (05/15/2022) Pathologist [facility] Annual BMP Blood Test Abstracted Historical Provider HEALTH MAINTENANCE Final Result * Hemoglobin A1c (05/15/2022) Pathologist [facility] Hemoglobin A1C 6.2 <=6.5 % Blood Venous blood specimen / Unknown Historical Provider LAB BLOOD ORDERABLES Shazia l Result * (ABNORMAL) Lipid panel (05/15/2022) [facility] LDL/HDL Ratio 5(A) 0 - 4 Triglycerides 109 0 - 150 mg/dL Cholesterol 187 0 - 200 mg/dL HDL 36(A) >=40 mg/dL LDL Cholesterol 130(A) 0 - 100 mg/dL Blood Venous blood specimen / Unknown Historical Provider LAB BLOOD ORDERABLES Shazia l Result * Colonoscopy (04/11/2020) [facility] Colonoscopy Abstracted, no interpretation Anatomical Region Laterality Modality Other Historical Provider HEALTH MAINTENANCE Final Result * Hepatitis C Screening (01/23/2016) [facility] Hepatitis C Screening Abstracted [facility] Provider HEALTH MAINTENANCE Final Result from Last 3 Months or Most Recently Relevant to Health Maintenance Insurance [facility] [employer] [facility] Care Teams Brancher Relationship Specialty Start Date End Date Bienvenido Marquez FNP [address] [place] [address] PCP - General Family Medicine 10/30/24
--- OUTSIDE RECORDS SUMMARY | 2025-06-27 21:06 | XMS_ITS | Encounter Summary ---
Author Organization [facility] Address [address] [place] [address] Care Team Providers Care Antique Furniture Repairer Name Role Phone Soni Metz MD Primary Care Provider Moise Madison Primary Care Provider [phone] Jong Olivia MD Primary Care Provider Reason for Visit * Reason Onset Date Comments Juke Box Mechanic Feedback 08/07/2021 Pulmonology (Sle ep Study) Encounter Details Date Type Department Care Team Description 08/07/2021 Telephone Medicine/Pediatrics - [address] [phone] Soni Metz MD Juke Box Mechanic Feedback (Pulmonology (Sleep Study)) Social History Tobacco [...] encounter Miscellaneous Notes * Telephone Encounter - Maraim Craft - 08/07/2021 10:[address] [...] Primary documented in this encounter Care Teams Antique Furniture Repairer Relationship Specialty Start Date End Date Soni Metz MD PCP - General 07/01/10 02/02/22 Moise Ponce [address] [place] [address] PCP - General Internal Medicine 02/03/22 07/07/22 Jong Olivia MD [address] [place] [address] PCP - General Internal Medicine 07/08/22 documented as of this encounter
--- OUTSIDE RECORDS SUMMARY | 2025-06-27 21:06 | XMS_ITS | Encounter Summary ---
Author Organization [facility] Address [address] [place] [address] Care Team Providers Care All Source Analyst Name Role Phone Soni Metz MD Primary Care Provider Moise Madison Primary Care Provider [phone] Jong Olivia MD Primary Care Provider Encounter Details Date Type Department Care Team Description 09/09/2017 Framer Report Medical Records [address] [place] [address] Prasadrichaprincess Benjamin [address] [place] [address], [address] [place] [address] Social History Tobacco Use Types Packs/Day Years [...] on filedocumented in this encounter Care Teams All Source Analyst Relationship Specialty Start Date End Date Soni Metz MD PCP - General 07/01/10 02/02/22 Moise Ponce [address] [place] [address] PCP - General Internal Medicine 02/03/22 07/07/22 Jong Olivia MD [address] [place] [address] PCP - General Internal Medicine 07/08/22 documented as of this encounter
--- OUTSIDE RECORDS SUMMARY | 2025-06-27 21:06 | XMS_ITS | Encounter Summary ---
Author Organization [facility] Address [address] [place] [address] Care Team Providers Care Middle School Reading Teacher Name Role Phone Soni Metz MD Primary Care Provider Moise Madison Primary Care Provider [phone] Jong Olivia MD Primary Care Provider Reason for Visit * Reason Onset Date Comments Sleep Apnea 05/22/2020 Provider Call Back 05/22/2020 Encounter Details Date Type Department Care Team Description 05/22/2020 Telephone Pulmonology - [place] [address] [facility] [address] [place] [address] Jennifer Shaffer [facility] [address] [place] [address] Sleep Apnea; Provider Call Back Social History [...] on filedocumented in this encounter Care Teams Middle School Reading Teacher Relationship Specialty Start Date End Date Soni Metz MD PCP - General 07/01/10 02/02/22 Moise Ponce [address] [place] [address] PCP - General Internal Medicine 02/03/22 07/07/22 Jong Olivia MD [address] [place] [address] PCP - General Internal Medicine 07/08/22 documented as of this encounter
--- OUTSIDE RECORDS SUMMARY | 2025-06-27 21:06 | XMS_ITS | Encounter Summary ---
Author Organization [facility] Address [address] [place] [address] Care Team Providers Care Captain Room Service Name Role Phone Moise Prather Primary Care Provider [phone] Jong Olivia MD Primary Care Provider Reason for Visit * Reason Comments E-prescribe Rx Request Encounter Details Date Type Department Care Team Description 04/24/2022 Refill Medicine/Pediatrics - [address] [address] Ally Grimes PA-C E-prescribe Rx Request Social [...] ?? Patients current insurance carrier is: Payor: [employer] [place] / Plan: Explore [employer] $25 [place]LO 1 / Product Type: HMO [id number] ?? documented in this encounter Plan of Treatment Not on file documented as of this encounter Visit Diagnoses Not on filedocumented in this encounter Care Teams Captain Room Service Relationship Specialty Start Date End Date Moise Prather [address] [place], [place] [phone] PCP - General Internal Medicine 02/03/22 07/07/22 Jong Olivia MD [address] [place], [place] [phone] PCP - General Internal Medicine 07/08/22 documented as of this encounter
--- OUTSIDE RECORDS SUMMARY | 2025-06-27 21:06 | XMS_ITS | Encounter Summary ---
Author Organization [facility] Address [address] [place] [address] Care Team Providers Care Utilization Supervisor Name Role Phone Jong Olivia MD Primary Care Provider Encounter Details Date Type Department Care Team Description 12/24/2022 Refill Adult Medicine [address] [address] Moise Ponce [address] [place] [id number] Social History Tobacco Use Types Packs/Day Years [...] on filedocumented in this encounter Care Teams Utilization Supervisor Relationship Specialty Start Date End Date Jong Olivia MD [address] [place] [address] PCP - General Internal Medicine 07/08/22 documented as of this encounter
--- OUTSIDE RECORDS SUMMARY | 2025-06-27 21:06 | XMS_ITS | Encounter Summary ---
Author Organization [facility] Address [address] [place] [address] Care Team Providers Care Dimension Mill Worker Name Role Phone Soni Metz MD Primary Care Provider Moise Madison Primary Care Provider [phone] Jong Olivia MD Primary Care Provider Encounter Details Date Type Department Care Team Description 02/07/2013 Anode Rebuilder Report Medical Records [address] [place] [address] Hebert Reece MD Social History Tobacco Use [...] on filedocumented in this encounter Care Teams Dimension Mill Worker Relationship Specialty Start Date End Date Soni Metz MD PCP - General 07/01/10 02/02/22 Moise Ponce [address] [place] [id number] PCP - General Internal Medicine 02/03/22 07/07/22 Jong Olivia MD [address] [place] [address] PCP - General Internal Medicine 07/08/22 documented as of this encounter
--- OUTSIDE RECORDS SUMMARY | 2025-06-27 21:06 | XMS_ITS | Encounter Summary ---
Author Organization [facility] Address [address] [place] [address] Care Team Providers Care Fishing Vessel Captain Name Role Phone Soni Metz MD Primary Care Provider Moise Madison Primary Care Provider [phone] Jong Olivia MD Primary Care Provider Reason for Visit * Reason Onset Date Comments Orders Call 11/12/2015 unresulted order s Encounter Details Date Type Department Care Team Description 11/12/2015 Telephone Medicine/Pediatrics - [address] [phone] Demetri Gardiner PA-C Orders Call (unresulted orders) [...] on filedocumented in this encounter Care Teams Fishing Vessel Captain Relationship Specialty Start Date End Date Soni Metz MD PCP - General 07/01/10 02/02/22 Moise Ponce [address] [place] [address] PCP - General Internal Medicine 02/03/22 07/07/22 Jong Olivia MD [address] [place] [address] PCP - General Internal Medicine 07/08/22 documented as of this encounter
--- OUTSIDE RECORDS SUMMARY | 2025-06-27 21:06 | XMS_ITS ---
Author Name [facility] Organization Unknown Care Team Organization Name Specialty Phone Email Start Date End [facility] Moise Ponce Primary Care 06/16/202203/09
--- OUTSIDE RECORDS SUMMARY | 2025-06-27 21:06 | XMS_ITS | Encounter Summary ---
Author Organization [facility] Address [address] [place] [address] Care Team Providers Care Mixer Crane Operator Name Role Phone Soni Metz MD Primary Care Provider Moise Madison Primary Care Provider [phone] Jong Olivia MD Primary Care Provider Encounter Details Date Type Department Care Team Description 12/26/2015 Wool Merchant Report Medical Records [address] [place] [address] Prasadrichaprincess Benjamin [address] [place] [address], [address] [place] [address] Social History Tobacco Use Types Packs/Day Years [...] on filedocumented in this encounter Care Teams Mixer Crane Operator Relationship Specialty Start Date End Date Soni Metz MD PCP - General 07/01/10 02/02/22 Moies Ponce [address] [place] [address] PCP - General Internal Medicine 02/03/22 07/07/22 Jong Olivia MD [address] [place] [address] PCP - General Internal Medicine 07/08/22 documented as of this encounter
--- OUTSIDE RECORDS SUMMARY | 2025-06-27 21:06 | XMS_ITS | Encounter Summary ---
Author Organization [facility] Address [address] [place] [address] Care Team Providers Care Vice President Of Compliance Name Role Phone Soni Metz MD Primary Care Provider Moise [place] Primary Care Provider [phone] Jong Olivia MD Primary Care Provider Reason for Visit * Reason Onset Date Comments Call From Pharmacy 07/12/2015 Encounter Details Date Type Department Care Team Description 07/12/2015 Telephone Medicine/Pediatrics - [address] [phone] Soni Metz MD Call From Pharmacy Social [...] this medication for this patient, please call [facility] on [facility] In [place] to clarify. documented in this encounter Plan of Treatment Not on file documented as of this encounter Visit Diagnoses Not on filedocumented in this encounter Care Teams Vice President Of Compliance Relationship Specialty Start Date End Date Soni Metz MD PCP - General 07/01/10 02/02/22 Moise Ponce [address] [place] [phone] PCP - General Internal Medicine 02/03/22 07/07/22 Jong Olivia MD [address] [place] [id number] PCP - General Internal Medicine 07/08/22 documented as of this encounter
== END 2025-06-27 11:39 | disposition home or self-care (01) ==
LOC: HO.HMCFM 10:44
PROVIDERS: PCP Nurse Practitioner Family; Visit Provider Nurse Practitioner Family
DX: E11.65 Type 2 diabetes mellitus with hyperglycemia (principal); E11.29 Type 2 diabetes mellitus with other diabetic kidney complication; I10 Essential (primary) hypertension; H61.23 Impacted cerumen, bilateral; M25.562 Pain in left knee; E78.00 Pure hypercholesterolemia, unspecified; R80.9 Proteinuria, unspecified; E55.9 Vitamin D deficiency, unspecified; I72.2 Aneurysm of renal artery; Z23 Encounter for immunization; Z91.148 Patient's other noncompliance with medication regimen for other reason

== ENCOUNTER → 2025-06-27 10:43 | Outpatient (BNVA) | payer OTHER, SELFPAY | PROVIDERS: PCP Nurse Practitioner Family; Visit Provider Nurse Practitioner Family | DX: Z76.89 Persons encountering health services in other specified circumstances (principal); Z23 Encounter for immunization; H61.23 Impacted cerumen, bilateral; E11.8 Type 2 diabetes mellitus with unspecified complications; E11.29 Type 2 diabetes mellitus with other diabetic kidney complication; I10 Essential (primary) hypertension; I72.2 Aneurysm of renal artery; E78.00 Pure hypercholesterolemia, unspecified; E55.9 Vitamin D deficiency, unspecified; R80.9 Proteinuria, unspecified; M25.562 Pain in left knee; G89.29 Other chronic pain; K50.10 Crohn's disease of large intestine without complications | CPT/HCPCS: 69209; 83036; 90471; 90656; 96127; 99212 ==